=== PATIENT | male | born 1930 | race Caucasian/White ===

== ENCOUNTER 2016-08-01 10:40 | Emergency (ER) | payer OTHER, MEDICARE ==
[~2016-08-01] VITALS: Ht 177.8 cm; Wt 96.0 kg
[~2016-08-01 10:40] MED LIST: ASPI81TA28 PO; CRDCD300 PO; GLC/500 PO; LISI-725 PO
[2016-08-01 10:55] VITALS: Ht 177.8 cm; Wt 96.0 kg
[2016-08-01] MEDS ORDERED: PRED10TA PO (11:26)
[2016-08-01] MEDS ORDERED: DILT300C35 PO (11:26)
[2016-08-01] MEDS ORDERED: SODIUM CHLORIDE 0.9% 1000ML 1,000 ML IV STA (11:46)
[2016-08-01] MEDS ORDERED: MoRPHine SULFATE 4 MG/ML 1 ML CARP\\VIAL IV STA (11:46)
[2016-08-01] MEDS ORDERED: ALBUT/IPRATROP 3MG/0.5MG NEB 3 ML VIAL INH STA (11:46)
[2016-08-01] MEDS ORDERED: ONDANSETRON INJ 2 MG/ML 2 ML VIAL IV STA (11:46)
[2016-08-01 12:09] VITALS: O2SAT 97
[2016-08-01 12:14] LABS: BASO % 0.1 %; BASO ABS # 0.02 K/uL (0-0.2); COMPLETE YES; HEMATOCRIT 43.9 % (42-52); LYMPH % 15.3 %; LYMPH ABS # 3.01 K/uL (1.2-3.4); MEAN CELL VOLUME 85.6 fL (80-100); MEAN CORPUSCULAR HEMOGLOBIN 28.5 pg (25-34); MEAN CORPUSCULAR HGB CONC 33.3 g/dl (32-36); MEAN PLATELET VOLUME 9.9 fL (7.4-10.4); MONO % 4.2 %; NEUT % 79.4 %; PLATELET COUNT 394 K/uL (130-400); RED BLOOD COUNT 5.13 M/uL (4.7-6.1); WHITE BLOOD COUNT 19.68 K/uL (4.8-10.8)
[2016-08-01] MEDS ORDERED: OPTIRAY 320 IV PRN (12:15)
--- NOTE | 2016-08-01 12:29 | DIAGNOSTIC IMAGING REPORT ---
SINGLE VIEW CHEST CLINICAL HISTORY: Generalized abdominal pain. FINDINGS: An AP, portable, upright chest radiograph is compared to study dated 08/14/2012. The examination is degraded by portable technique and patient rotation. The patient is status post midline sternotomy. The heart is enlarged and there is atherosclerotic calcification of the thoracic aorta. The pulmonary vasculature is noncongested. Chronic interstitial thickening is unchanged, as is significant elevation of the left hemidiaphragm with left basilar atelectasis. No airspace consolidation, large pleural effusion, or pneumothorax is seen. The skeletal structures are osteopenic. Degenerative change is noted throughout the thoracic spine. IMPRESSION: 1. Cardiomegaly without radiographic evidence of congestive failure. 2. Chronic changes as above. There is no acute cardiopulmonary abnormality. Electronically signed by: Juvencio Thomas M.D. 08/01/2016 12:28 PM Dictated Date/Time: 08/01/2016 12:26 PM
[2016-08-01 12:37] LABS: ALT/SGPT 20 U/L (12-78); AST/SGOT 10 U/L (15-37); BLOOD UREA NITROGEN 21 mg/dl (7-18); BUN/CREATININE RATIO 18.8 (10-20); CALCIUM 9.7 mg/dl (8.5-10.1); CARBON DIOXIDE 29 mmol/L (21-32); CHLORIDE 104 mmol/L (98-107); GLUCOSE 124 mg/dl (70-99); SODIUM 140 mmol/L (136-145)
[2016-08-01 12:40] LABS: ALKALINE PHOSPHATASE 60 U/L (45-117)
[2016-08-01] MEDS ORDERED: MoRPHine SULFATE 10 MG/ML CARP/VIAL IV STA (12:51)
[2016-08-01 13:10] LABS: URINE APPEARANCE CLOUDY (CLEAR); URINE BILIRUBIN NEG (NEG); URINE COLOR YELLOW; URINE EPITHELIAL CELL AUTO >30 /lpf (0-5); URINE NITRITE NEG (NEG); URINE PH 7.5 (4.5-7.5); URINE SPECIFIC GRAVITY 1.023 (1.000-1.030); UROBILINOGEN NEG (NEG)
[2016-08-01 13:36] LABS: MANUAL MICROSCOPIC REQUIRED? NO; REVIEW REQ? YES; SULFASALICYLIC ACID NEG (NEG)
[2016-08-01 13:40] LABS: URINE MUCUS PRESENT (NONE PRSENT)
--- NOTE | 2016-08-01 15:05 | DIAGNOSTIC IMAGING REPORT ---
CT ABD/PELVIS IV AND ORAL CONT CLINICAL HISTORY: Generalized abdominal pain COMPARISON STUDY: 09/16/2012 TECHNIQUE: Following the IV administration of 118 mL of Optiray-320, CT scan of the abdomen and pelvis was performed from the lung bases to the proximal femurs. Images are reviewed in the axial, sagittal, and coronal planes. IV contrast was administered without complication. CT DOSE: 1023.07 mGy.cm FINDINGS: Lower chest: There are bibasal atelectatic changes. There is mild elevation of the left hemidiaphragm. Liver: The contrast-enhanced liver is normal in size, contour, and attenuation. There is no intrahepatic biliary ductal dilatation. The hepatic veins and portal veins are patent. Gallbladder: Unremarkable. Spleen: Normal in size and attenuation. Pancreas: Unremarkable. Adrenal glands: There is a 4 cm right adrenal gland mass. This contains fat on the prior study and is consistent with an adenoma. Kidneys: There are bilateral nonobstructing renal calculi. There are subcentimeter renal hypodensities measuring up to 8 mm in size. These likely represent cysts. Bowel: There are no transition zones indicate bowel obstruction. The appendix appears normal. There is colonic diverticulosis. There is no acute peridiverticular inflammatory change. Peritoneum: There is no intraperitoneal free air or abdominal ascites. Vasculature: The abdominal aorta is normal in course and caliber. Adenopathy: None. Pelvic viscera: The prostate is enlarged. Evaluation the prostate is limited due to artifact from bilateral hip arthroplasties. Skeletal structures: There is a left rectus sheath hematoma measuring 10 x 4 x 10 cm. There is a moderate L1 compression fracture. This was present on the prior 2012 study IMPRESSION: 1. 10 x 4 x 10 cm left rectus sheath hematoma 2. No evidence of bowel obstruction. No evidence of free air 3. Normal appendix 4. Colonic diverticulosis. No evidence of acute peridiverticular inflammatory change 5. Bilateral nephrolithiasis 6. 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 08/01/2016 3:04 PM Dictated Date/Time: 08/01/2016 2:57 PM
[2016-08-01 16:18] LABS: INR 1.1 (0.9-1.1); PROTHROMBIN TIME (PATIENT) 11.4 SECONDS (9.0-12.0)
[2016-08-01 16:33] VITALS: BP 122/61; PULSE 63; TEMP 36.4; O2SAT 93
--- NOTE | 2016-08-01 18:32 | EMERGENCY ROOM VISIT NOTE ---
ED Visit Note First contact with patient: 11:14 I have personally evaluated this patient examined her and reviewed the pertinent labs and data. I have discussed the case with Mike Yu, the physician assistant refinery operator and agree with the plan. Please refer to the PA note. This patient comes in after having abdominal pain. He's been on 2 courses steroids and has been a lot of coughing is on antibiotics. Chest x-ray was clear .he looks well upon my exam and his abdominal pain has abated. He does have a bruise in the right side of the abdomen which looks like it's fading indicating its been there for more than a couple days likely. He is minimally tender to palpation. His hemoglobin stable at 14. CAT scan did show rectus sheath hematoma that is is 10 x 10 x 4 cm. We talked to the patient and his daughter at length and told him I cannot tell if this could expand. He is not on any blood thinners which is good. I recommended we admit her for observation but he declines. I don't think is unreasonable to send him home with close follow-up. I recommended he call his doctor tomorrow and get rechecked before the weekend either tomorrow or Saturday. Return sooner if: increasing pain, lightheadedness or dizziness, worsening of symptoms, any new problems or concerns. The patient and his daughter are happy with the plan and he was discharged to home.
--- NOTE | 2016-08-02 17:56 | EMERGENCY ROOM VISIT NOTE ---
ED Visit Note First contact with patient: 11:14 Chief Complaint: Abdominal pain. History of Present Illness: Mr. Larkin is a 86 year-old white male who ambulates into the ED accompanied by his daughter complaining of left mid to lower quadrant abdominal pain quadrant abdominal pain. Historically patient reports Patient reports a 9 days ago he was diagnosed with pneumonia at a local urgent care center because of a cough. He was started on Levaquin and prednisone for his symptoms. He reports he was re-seen yesterday for abdominal pain and his cough which continues and was represcribed prednisone. Today he contacted his PCP who encouraged him to go to the emergency department for his abdominal pain. Patient reports approximately 6 days ago he started developing a mild left lower quadrant abdominal pain. Since that time the pain has been constant has gradually increased in intensity until last night it became severe. Initially at its onset he describes his pain as an achy sensation. Last evening approximately 14 hours ago the pain became sharp in nature. Since that time his pain has been continually sharp. Currently he rates his discomfort 8/10. The pain does migrate from the mid quadrant to the lower aspect of the left lower quadrant. His pain worsens when moving from the standing to the lying position and he reported it worsened with bouncing on the car on the way to the hospital. He has not taken any medications for his pain prior to arrival at the hospital. Associated with his pain he reports he has not moved his bowels for the last 2 days and the last time he did he needed to push to get it out and it was hard in nature. Additionally he does report approximately 2 days ago he was eating a hamburger from a local fast food restaurant and developed some GERD-like symptoms in the epigastric area that has subsequently resolved. Patient denies fevers, chills, sweats, skin eruptions, skin color changes, upper respiratory tract symptoms, shortness of breath, chest pain, nausea, vomiting, diarrhea, rectal bleeding, black/tarry stools, urinary symptoms, hematuria, back/flank pain. Review of Systems: As noted above in history of present illness. All body systems were reviewed and found to be negative as noted above. Past Medical History: Diabetes, hypertension, pneumonia, kidney stones, status post knee and hip arthroplasty and right inguinal hernia repair. Current Medications: Zestril, metformin, aspirin, diltiazem, prednisone. Allergies to Medications: Patient denies. Social History: Patient is currently employed; he feels safe in his home environment; he denies tobacco use; he admits to social alcohol use. Physical Examination: Vital Signs: Date Time Temp Pulse Resp B/P Pulse Ox O2 Delivery O2 Flow Rate FiO2 08/01/16 16:33 36.4 63 18 122/61 93 08/01/16 16:32 63 18 122/61 93 Room Air 08/01/16 15:33 67 18 125/65 93 Room Air 08/01/16 14:08 73 18 121/55 93 Room Air 08/01/16 13:01 71 18 132/60 95 Room Air 08/01/16 12:11 73 08/01/16 12:09 73 20 116/62 97 Room Air 08/01/16 10:55 36.4 101 18 110/66 94 Room Air GENERAL: 86-year-old male in moderate distress due to pain, nontoxic-appearing, afebrile and hemodynamically stable. NEUROLOGICAL: Awake, alert and oriented to person, place and time. Answering questions appropriately and following commands. Normal gait. Good hand eye coordination. SKIN: Warm, dry and pink. No soft tissue eruptions or trauma noted. HEENT: Atraumatic and normocephalic. PERRLA. Sclera white and conjunctiva pink. Oral cavity moist and pink. Pharynx is nonerythematous or edematous. Speech normal. No lymphadenopathy. Trachea midline. No jugular venous distention. BACK: No tenderness over the bony spine. No CVA tenderness. THORAX: Lungs sounds diffuse wheezing and rhonchi with decreased air movements in the bases. Equal bilaterally with symmetrical chest wall. No rales.. No crepitus, tenderness, subcutaneous air or deformities noted. No increased respiratory effort. HEART: Regular rate and rhythm. No gallops, rubs or murmurs are appreciated. ABDOMEN: Flat and soft with mild tenderness in the epigastrium and moderate tenderness with guarding in the mid and lower left quadrant. Decreased bowel sounds in all quadrants. No rigidity or organomegaly. Over the anterior surface of the abdomen in the right upper quadrant patient has a large resolving contusion without tenderness. EXTREMITIES: Moves all extremities well on command and with purpose. All distal neurovascular statuses are intact and equal bilaterally. Mild dependent edema slightly more pronounced on the right than the left; patient reports she' s had a previous fracture in that leg. ED Course: Patient is assessed as noted above. Laboratory Testing: Test 08/01/16 11:50 08/01/16 12:53 Range/Units White Blood Count 19.68 4.8-10.8 K/uL Red Blood Count 5.13 4.7-6.1 M/uL Hemoglobin 14.6 14.0-18.0 g/dL Hematocrit 43.9 42-52 % Mean Corpuscular Volume 85.6 80-100 fL Mean Corpuscular Hemoglobin 28.5 25-34 pg Mean Corpuscular Hemoglobin Concent 33.3 32-36 g/dl Platelet Count 394 130-400 K/uL Mean Platelet Volume 9.9 7.4-10.4 fL Neutrophils (%) (Auto) 79.4 % Lymphocytes (%) (Auto) 15.3 % Monocytes (%) (Auto) 4.2 % Eosinophils (%) (Auto) 0.0 % Basophils (%) (Auto) 0.1 % Neutrophils # (Auto) 15.63 1.4-6.5 K/uL Lymphocytes # (Auto) 3.01 1.2-3.4 K/uL Monocytes # (Auto) 0.82 0.11-0.59 K/uL Eosinophils # (Auto) 0.00 0-0.5 K/uL Basophils # (Auto) 0.02 0-0.2 K/uL RDW Standard Deviation 45.4 36.4-46.3 fL RDW Coefficient of Variation 14.6 11.5-14.5 % Immature Granulocyte % (Auto) 1.0 % Immature Granulocyte # (Auto) 0.20 0.00-0.02 K/uL Prothrombin Time 11.4 9.0-12.0 SECONDS Prothromb Time International Ratio 1.1 0.9-1.1 Activated Partial Thromboplast Time 26.3 21.0-31.0 SECONDS Partial Thromboplastin Ratio 1.0 Sodium Level 140 136-145 mmol/L Potassium Level 5.0 3.5-5.1 mmol/L Chloride Level 104 98-107 mmol/L Carbon Dioxide Level 29 21-32 mmol/L Anion Gap 7.0 3-11 mmol/L Blood Urea Nitrogen 21 7-18 mg/dl Creatinine 1.10 0.60-1.40 mg/dl Est Creatinine Clear Calc Drug Dose 58.1 ml/min Estimated GFR () 71.1 Estimated GFR (Non- 61.3 BUN/Creatinine Ratio 18.8 10-20 Random Glucose 124 70-99 mg/dl Calcium Level 9.7 8.5-10.1 mg/dl Total Bilirubin 0.4 0.2-1 mg/dl Direct Bilirubin < 0.1 0-0.2 mg/dl Aspartate Amino Transf (AST/SGOT) 10 15-37 U/L Alanine Aminotransferase (ALT/SGPT) 20 12-78 U/L Alkaline Phosphatase 60 45-117 U/L Total Protein 7.0 6.4-8.2 gm/dl Albumin 3.4 3.4-5.0 gm/dl Lipase 137 73-393 U/L Urine Color YELLOW Urine Appearance CLOUDY CLEAR Urine pH 7.5 4.5-7.5 Urine Specific Sabael 1.023 1.000-1.030 Urine Protein NEG NEG Urine Glucose (UA) NEG NEG Urine Ketones TRACE NEG Urine Occult Blood 1+ NEG Urine Nitrite NEG NEG Urine Bilirubin NEG NEG Urine Urobilinogen NEG NEG Urine Leukocyte Esterase SMALL NEG Urine WBC (Auto) 5-10 0-5 /hpf Urine RBC (Auto) 10-30 0-4 /hpf Urine Hyaline Casts (Auto) 1-5 0-5 /lpf Urine Epithelial Cells (Auto) >30 0-5 /lpf Urine Bacteria (Auto) NEG NEG Urine Renal Epithelial Cells 0-5 /lpf Urine Crystals See comments NONE PRSENT Urine Mucus PRESENT NONE PRSENT Chest X-Ray: Was read by myself and reviewed with Dr. Arreola; shows cardiomegaly, atherosclerotic is calcification within the thoracic aorta, no acute infiltrates, effusions or pneumothorax, no pulmonary congestion, elevation of the left hemidiaphragm with bilateral atelectasis and degenerative changes noted throughout the spine. Contrast Abdominal/Pelvic CT: Was reviewed by myself and read by the radiologist and shows a 10 x 4 x 10 left rectus sheath hematoma, no bowel structure nor free air, normal-appearing appendix, colonic diverticulosis with no evidence of diverticulitis, bilateral nephrolithiasis, 4 cm right adrenal gland mass. Patient was hydrated with normal saline and he received a total of 10 mg of morphine IV and 4 mg of Zofran IV. Additionally he received an albuterol/ Atrovent nebulizer breathing treatment for his wheezing. Patient was reevaluated after his breathing treatment and had resolution of wheezing but continued to have diffuse rhonchi and he had improved air movement and did not appear in any acute respiratory distress. Patient was reassessed multiple times during his stay in the emergency department. I had a lengthy conversation with the patient and his daughter about possible observation stay because of this pain and the unknown etiology of his hematoma; he refused. Patient's case was reviewed with Dr. Arreola; in apparently assessed the patient we agreed on diagnostic approach, treatment, disposition and plan. Clinical Impression: Rectus sheath hematoma. Wheezing. Decision-Making: Initially my differential diagnosis I considered bowel obstruction, constipation, perforated viscus, diverticulitis, kidney stone, appendicitis, abdominal wall hernia and other causes. Disposition: Patient discharged home in stable condition accompanied by his daughter; prior to departure he was reassessed and subjectively reported he was feeling much better and rated his discomfort 3/10. Additionally he reported his breathing was much easier and did not feel short of breath. Plan: Patient was encouraged to use 650 mg of acetaminophen every 6 hours as needed for pain and to avoid NSAIDs. Patient was encouraged to use a spacer for his inhaler. Patient was encouraged to follow-up with primary care provider for recheck in 24 -48 hours. Patient was encouraged to watch for any abnormal or unusual bleeding. Patient was encouraged return the ED for worsening pain, signs of abnormal bleeding, fevers or any new/concerning symptoms.
== END 2016-08-01 16:34 | disposition home or self-care (01) ==
LOC: C.EDB 10:41
DX: S36.62XA Contusion of rectum, initial encounter (principal); X58.XXXA Exposure to other specified factors, initial encounter; R06.2 Wheezing; I10 Essential (primary) hypertension; E11.9 Type 2 diabetes mellitus without complications; K21.9 Gastro-esophageal reflux disease without esophagitis; Z87.442 Personal history of urinary calculi; Z79.82 Long term (current) use of aspirin; Z79.84 Long term (current) use of oral hypoglycemic drugs; Z79.899 Other long term (current) drug therapy

== ENCOUNTER 2017-05-26 10:23 | Emergency (ER) | payer OTHER, MEDICARE ==
[~2017-05-26] VITALS: Ht 175.3 cm; Wt 101.6 kg
[~2017-05-26 10:23] MED LIST changes: -CRDCD300 PO; +DILT300C35 PO; +PRED10TA PO
[2017-05-26 10:30] VITALS: TEMP 36.3; Ht 175.3 cm; Wt 101.6 kg
--- NOTE | 2017-05-26 11:31 | DIAGNOSTIC IMAGING REPORT ---
L ELBOW MIN 3 VIEWS ROUTINE CLINICAL HISTORY: L elbow olecranon bursitis COMPARISON: None DISCUSSION: No acute fractures are visualized. The fat pads are not displaced. There is an olecranon spur. There is pronounced posterior soft tissue swelling, consistent with the clinical history of an olecranon bursitis. IMPRESSION: 1. No acute fractures 2. Olecranon spur 3. Pronounced posterior soft tissue swelling consistent with the clinical history of an olecranon bursitis Electronically signed by: Mane Le M.D. 05/26/2017 11:30 AM Dictated Date/Time: 05/26/2017 11:28 AM
--- NOTE | 2017-05-26 11:43 | EMERGENCY ROOM VISIT NOTE ---
ED Visit Note First contact with patient: 10:52 Patient was seen by our PA/WRAPPER SELECTOR. I was involved in the patient's care and did evaluate the patient myself. I was involved in the care throughout the ER stay. The patient presents with an injury to the left elbow. Films do not show fracture. He does have some fluid in the olecranon bursa by exam, there is no heat or redness that indicates infection. No pain with palpation. He is being discharged with outpatient follow-up. He was reassured.
[2017-05-26 11:51] VITALS: BP 152/75; PULSE 70; O2SAT 96
--- NOTE | 2017-05-26 14:25 | EMERGENCY ROOM VISIT NOTE ---
History First contact with patient: 10:52 Chief Complaint: ELBOW PAIN/INJURY Stated Complaint: LARGE KNOB ON L ELBOW History of Present Illness The patient is a 87 year old male who presents to the Emergency Room with complaints of persistent left elbow swelling after tripping over his feet and falling onto the elbow 2.5 weeks ago. The patient denies any other significant injury, including head injury, loss of consciousness, neck pain, chest pain or other extremity injuries. The patient reports that the elbow started to swell at the time of the accident. He has not followed up with his family doctor for further evaluation. The patient denies any open wounds to the elbow, and also denies any paresthesias or numbness of the left forearm, hand or fingers. Tetanus immunization is up-to-date. The patient denies any pain. Review of Systems 10 system review was performed and was negative except for pertinent positives and negatives as indicated in history of present illness Past Medical/Surgical History Medical Problems: (1) CARDIAC MURMURS NEC (2) DIAB WILBERT WO COMPL, TYPE II OR UNSPEC TYPE, NOT UNCNTRLD (3) HYPERTENSION NOS Family History Unremarkable Social History Smoking Status: Never Smoker Alcohol Use: occasionally Drug Use: none Marital Status: Occupation Status: employed Current/Historical Medications Scheduled Aspirin (Aspirin Ec), 81 MG PO DAILY Diltiazem Hcl Extended Release (Diltiazem Hcl), 300 MG PO QAM Lisinopril (Zestril), 20 MG PO QPM Metformin Hcl (Glucophage), 500 MG PO BID Physical Exam Vital Signs Date Time Temp Pulse Resp B/P (MAP) Pulse Ox O2 Delivery O2 Flow Rate FiO2 05/26/17 11:51 70 18 152/75 96 Room Air 05/26/17 10:30 36.3 62 18 159/71 93 Room Air Physical Exam CONSTITUTIONAL: Healthy and well nourished. Alert and oriented X 3 with positive affect. GCS 15. HEENT: Normocephalic, atraumatic. Pupils equal, round and reactive. NECK: Full active range of motion without discomfort. MUSCULOSKELETAL: Examination of the left elbow shows a golf size fluid accumulation posteriorly. There is no overriding erythema or induration about the site. The patient has full pronation, supination, flexion and extension without discomfort. Distal pulses are intact. INTEGUMENTARY: No rash or other significant dermatologic conditions noted. NEUROLOGIC: Left hand and fingers are sensory intact. Medical Decision & Procedures ER Provider Diagnostic Interpretation: My interpretation of left elbow x-rays does not show any obvious fractures, dislocations, avulsions or joint effusion. Radiologist report is as follows: L ELBOW MIN 3 VIEWS ROUTINE CLINICAL HISTORY: L elbow olecranon bursitis COMPARISON: None DISCUSSION: No acute fractures are visualized. The fat pads are not displaced. There is an olecranon spur. There is pronounced posterior soft tissue swelling, consistent with the clinical history of an olecranon bursitis. IMPRESSION: 1. No acute fractures 2. Olecranon spur 3. Pronounced posterior soft tissue swelling consistent with the clinical history of an olecranon bursitis ED Course Patient history and physical exam were performed. Nurse's notes were reviewed. Vital signs were reviewed and were normal. I was advised by the nurse that the patient needed to be somewhere at 1 PM, 2 hours after checking in. I did suggest performing an x-ray to rule out underlying fracture. The patient wanted to know if I could drain the elbow. I told the patient that I would not do so until after having x-rays performed, and that it would take time in order to perform the procedure. The patient then deferred the procedure and agreed with having an x-ray performed. X-rays of the left elbow were normal, showing no evidence for fractures, avulsions, dislocation or joint effusion. The patient was encouraged to keep an Florian wrap to help flatten the bursa and help with reabsorption. He was encouraged to intermittently apply ice as needed. He was encouraged to follow-up with his PCP or orthopedics if the bursal effusion persists, and watch for any signs of developing infection. The patient was happy with plan of care, and voiced understanding of all discharge instructions. The patient was also seen and examined by Dr. Mcbride, ED attending physician who agrees with workup and plan of care. Medical Decision Medication Reconcilliation Current Medication List: was personally reviewed by me Blood Pressure Screening Patient's blood pressure: Normal blood pressure Impression Primary Impression: Olecranon bursitis, left elbow Departure Information Dispostion Home / Self-Care Forms HOME CARE DOCUMENTATION FORM, IMPORTANT VISIT INFORMATION Patient Instructions My [employer] Additional Instructions Keep Florian wrap on elbow to flatten the bursa and to help the body resorb the extra fluid. Follow-up with your family doctor or orthopedics if swelling persists, or if you start to notice any redness of the area.
== END 2017-05-26 11:59 | disposition home or self-care (01) ==
LOC: C.EDB 10:24
DX: M70.22 Olecranon bursitis, left elbow (principal); E11.9 Type 2 diabetes mellitus without complications; I10 Essential (primary) hypertension; Z79.82 Long term (current) use of aspirin; Z79.899 Other long term (current) drug therapy

== ENCOUNTER 2021-06-12 08:36 | Inpatient (IN) ==
--- NOTE | 2021-06-12 08:54 | Emergency Department Note ---
Impression & Plan Pulmonary edema, SOB (shortness of breath) ED Provider Note NAME: JANNA CHI AGE: 89 SEX: M : 1930 ARRIVES VIA: Ambulance INFORMANT: Patient, ED PROVIDER(S): Reid Barroso DO CHIEF COMPLAINT: Shortness of breath HPI: The patient is an 89-year-old male who presented to the emergency department by ambulance at the request of his primary care physician for an evaluation. The patient has a history of CHF but also has a history of recent COVID infection. The patient presented to the emergency department by [facility]. The patient started having shortness of breath this morning. He states he was in his normal state of health last evening. He states when he awoke this morning he had significant shortness of breath. He called his primary care physician and was given a telehealth visit. He was instructed to use a nebulizer treatment. He was feeling better afterwards. He states at this time he has no shortness of breath. He does wear oxygen at home normally. He has had a slight cough but no fever. He does have lower extremity swelling but states this is not new for him and his lower extremity swelling is baseline. He has had no chest pain. He denies having any abdominal pain. He said no hemopt ysis or productive cough. He states his symptoms were very severe at the time and are now resolved. ROS: See above HPI for pertinent positives & negatives. A total of 10 systems reviewed and were otherwise negative. PAST MEDICAL HISTORY: See Below PAST SURGICAL HISTORY: See Below FAMILY HISTORY: See Below SOCIAL HISTORY: See Below HOME MEDICATIONS: See Below ALLERGIES: See Below VITALS: See Below PHYSICAL EXAMINATION: GENERAL: The patient is awake and alert. He is resting comfortably. EYES: The conjunctivae are clear. The pupils are round and reactive. EARS, NOSE, MOUTH AND THROAT: The nose is without any evidence of any deformity. NECK: The neck is nontender and supple. RESPIRATORY: Diminished breath sounds are noted throughout. Rales were noted throughout. There is no conversational dyspnea or tachypnea. CARDIOVASCULAR: Irregular heart sounds were noted auscultation. There is no definite murmur. GASTROINTESTINAL: The abdomen is soft. Abdomen is nontender. MUSCULOSKELETAL/EXTREMITIES: There is no evidence of gross deformity full range of motion is noted in the hips and shoulders. SKIN: The skin was warm and dry. Pedal edema was noted bilaterally. NEUROLOGIC: Patient is awake alert and oriented x3. MEDICAL DECISION MAKING: The patient is an 89-year-old male who presented to the emergency department for an evaluation of difficulty breathing. The patient started having difficulty breathing earlier in the night which improved prior to arrival. The patient still has significant shortness of breath at this time especially with any exertion. I discussed the patient's laboratory and radiographic studies with him and his daughter. He was treated with a small dose of Lasix in the emergency department. He was somewhat improved on reevaluation. I discussed his condition with the on-call [facility] hospitalist group. They have agreed to evaluate patient in the emergency department for further management and disposition. Triage Nursing notes reviewed. Prior medical records reviewed Vital Signs: reviewed and remarkable for hypoxia with exertion. Differential diagnosis: Reactive airway disease, pneumonia, pneumothorax, COPD, CHF, infections, cardiac ischemia, pulmonary embolism, musculoskeletal, gastrointestinal, as well as other pathologies. ER treatment provided: See below Diagnostics interpreted by me: ECG: EKG was obtained in the emergency department. My interpretation is atrial fibrillation at 76 bpm. PVCs were noted. There is no acute ST segment ab normalities noted. This was compared to a tracing from May 27, 2021. No changes were noted. Cardiac Monitoring: An order was placed for continuous cardiac monitoring. The monitor shows a rate of 99 bpm with atrial fibrillation. Laboratory studies: As stated above and show below. Imaging studies: See below Consultation(s): I discussed this case with Jacob who is on-call for the [facility] group. Past Med/Surg History Medical History (Updated 06/12/21 @ 15:04 by Reid Barroso DO) Atrial fibrillation BPH w urinary obs/LUTS CAD (coronary artery disease) CHF (congestive heart failure) Complicated bereavement Constipation Diabetes mellitus Gout Hyperlipidemia LDL goal <70 Hypertension Insomnia Presence of Watchman left atrial appendage closure device Social History (Updated 06/12/21 @ 12:34 by FIDEL Glaser) Smoking Status: Former smoker Tobacco Type: Cigarettes Second Hand Exposure: Yes; Hx Alcohol Use: No Hx Substance Use: No Preferred Language: Vietnamese Communication Ability: Effective Make Up Arranger Required: No Beliefs That Will Affect Care: None Current Living Situation: Alone Feels Safe at Home: Yes Assistive Devices: Oxygen - Continuous and Walker Allergies Allergies Allergy/AdvReac Type Severity Reaction Status Date / Time No Known Allergies Allergy Verified 06/12/21 10:23 Home Meds Home Medications Medication Instructions Recorded Confirmed allopurinol 300 mg tablet 300 mg PO DAILY 05/15/21 06/12/21 aspirin 81 mg tablet,delayed 81 mg PO DAILY 05/15/21 06/12/21 release atorvastatin 20 mg tablet 20 mg PO DAILY 05/15/21 06/12/21 docusate sodium 100 mg capsule 100 mg PO BID PRN 05/15/21 06/12/21 (Colace) finasteride 5 mg tablet 5 mg PO DAILY 05/15/21 06/12/21 furosemide 40 mg tablet 40 mg PO BID 05/15/21 06/12/21 metformin 500 mg tablet 500 mg PO DAILY 05/15/21 06/12/21 metoprolol tartrate 25 mg tablet 12.5 mg PO DAILY 05/15/21 06/12/21 nitroglycerin 0.4 mg sublingual 0.4 mg SUBLINGUAL UD PRN 05/15/21 06/12/21 tablet (Nitrostat) sennosides 8.6 mg tablet (senna) 17.2 mg PO HS 05/15/21 06/12/21 tamsulosin 0.4 mg capsule 0.4 mg PO DAILY 05/15/21 06/12/21 thiamine HCl (vitamin B1) 100 mg 100 mg PO DAILY 05/15/21 06/12/21 tablet albuterol sulfate 2.5 mg INHALATION Q4 PRN 06/12/21 06/12/21 Previous Rx's Medication Instructions Recorded apixaban 5 mg tablet (Eliquis) 5 mg PO BID #60 tab 05/19/21 mirtazapine 15 mg tablet 15 mg PO HS #30 tab 05/19/21 Results & Data (ED) Vital Signs Vital Signs - 24 hr 06/12/21 08:46 06/12/21 09:00 06/12/21 09:01 Temperature Temperature Source Pulse Rate 75 80 85 Pulse Rate [Apical] Pulse Rate from SpO2 Sensor 81 80 76 Respiratory Rate 26 H 25 H 23 Respiratory Effort / Characteristics Respiratory Depth Respiratory Pattern Blood Pressure 132/65 Blood Pressure [Right Arm] Blood Pressure Mean 87 Blood Pressure Mean [Right Arm] Pulse Oximetry 98 94 95 Oxygen Delivery Method Nasal Cannula Nasal Cannula Nasal Cannula Oxygen Flow Rate 2 2 2 Sepsis Recent Fever Within 48 Hours Sepsis New/Unexplained Change in Mental Status Sepsis Action Taken by Nursing 06/12/21 09:03 06/12/21 09:05 06/12/21 09:30 Temperature 36.8 C 36.8 C Temperature Source Oral Oral Pulse Rate 63 63 68 Pulse Rate [Apical] 63 Pulse Rate from SpO2 Sensor Respiratory Rate 22 22 24 Respiratory Effort / Characteristics Spontaneous Labored Spontaneous Labored Respiratory Depth Normal Normal Respiratory Pattern Regular Regular Blood Pressure 110/61 104/64 Blood Pressure [Right Arm] 110/61 Blood Pressure Mean 77 77 Blood Pressure Mean [Right Arm] 77 Pulse Oximetry 98 98 Oxygen Delivery Method Nasal Cannula Nasal Cannula Oxygen Flow Rate 2 2 Sepsis Recent Fever Within 48 Hours No Sepsis New/Unexplained Change in Mental Status No Sepsis Action Taken by Nursing No Action Required 06/12/21 10:00 06/12/21 10:01 06/12/21 10:30 Temperature Temperature Source Pulse Rate 79 64 86 Pulse Rate [Apical] Pulse Rate from SpO2 Sensor 82 69 81 Respiratory Rate 24 24 16 Respiratory Effort / Characteristics Respiratory Depth Respiratory Pattern Blood Pressure 112/71 Blood Pressure [Right Arm] Blood Pressure Mean 84 Blood Pressure Mean [Right Arm] Pulse Oximetry 96 98 Oxygen Delivery Method Nasal Cannula Nasal Cannula Oxygen Flow Rate 2 2 Sepsis Recent Fever Within 48 Hours Sepsis New/Unexplained Change in Mental Status Sepsis Action Taken by Nursing 06/12/21 10:31 06/12/21 11:00 06/12/21 11:01 Temperature Temperature Source Pulse Rate 70 76 74 Pulse Rate [Apical] Pulse Rate from SpO2 Sensor 73 78 76 Respiratory Rate 26 H 24 24 Respiratory Effort / Characteristics Respiratory Depth Respiratory Pattern Blood Pressure 120/67 106/55 L Blood Pressure [Right Arm] Blood Pressure Mean 84 72 Blood Pressure Mean [Right Arm] Pulse Oximetry 95 96 96 Oxygen Delivery Method Nasal Cannula Nasal Cannula Nasal Cannula Oxygen Flow Rate 2 2 2 Sepsis Recent Fever Within 48 Hours Sepsis New/Unexplained Change in Mental Status Sepsis Action Taken by Nursing 06/12/21 11:30 06/12/21 12:00 Temperature Temperature Source Pulse Rate 76 76 Pulse Rate [Apical] Pulse Rate from SpO2 Sensor 75 77 Respiratory Rate 24 22 Respiratory Effort / Characteristics Respiratory Depth Respiratory Pattern Blood Pressure 126/71 143/76 H Blood Pressure [Right Arm] Blood Pressure Mean 89 98 Blood Pressure Mean [Right Arm] Pulse Oximetry 97 97 Oxygen Delivery Method Oxygen Flow Rate Sepsis Recent Fever Within 48 Hours Sepsis New/Unexplained Change in Mental Status Sepsis Action Taken by Care Home Medications Current Medication List: was personally reviewed by me Laboratory Data Attestation: I reviewed the patient's lab results. Result diagrams: 06/12/21 08:55 06/12/21 08:55 Lab Results 06/12/21 06/12/21 06/12/21 Range/Units 08:55 08:55 08:55 WBC 46.46 H* (4.8-10.8) K/uL RBC 3.18 L (4.7-6.1) M/uL Hgb 9.7 L (14.0-18.0) g/dL Hct 33.6 L (42-52) % MCV 105.7 H (80-100) fL MCH 30.5 (25-34) pg MCHC 28.9 L (32-36) g/dL RDW Std Deviation 66.3 H (36.4-46.3) fL RDW Coeff of Eladio 17.2 H (11.5-14.5) % Plt Count 231 (130-400) K/uL MPV 9.3 (7.4-10.4) fL Neutrophils % (Manual) 13.2 % Lymphocytes % (Manual) 84.1 % Monocytes % (Manual) 1.8 % Eosinophils % (Manual) 0.9 % Neutrophils # (Manual) 6.13 (1.4-6.5) K/uL Total Absolute Neuts 6.13 (1.4-6.5) K/uL Lymphocytes # (Manual) 39.07 H (1.2-3.4) K/uL Total Abs Lymphocytes 39.07 H (1.2-3.4) K/uL Monocytes # (Manual) 0.84 H (0.11-0.59) K/uL Eosinophils # (Manual) 0.42 (0-0.5) K/uL ESR (0-20) mm/hr PT 11.3 (9.0-12.0) Seconds INR 1.1 (0.9-1.1) APTT 26.2 (21.0-31.0) Seconds PTT Ratio 1.0 VBG pH (7.36-7.41) VBG pCO2 (38-50) mmHg VBG pO2 mmHg VBG HCO3 mmol/L VBG O2 Saturation % VBG Base Excess mEq/L Barometric Pressure mm/Hg Sodium 142 (136-145) mmol/L Potassium 4.0 (3.5-5.1) mmol/L Chloride 99 (98-107) mmol/L Carbon Dioxide 42 H* (21-32) mmol/L Anion Gap 1.0 L (3-11) BUN 22 H (7-18) mg/dl Creatinine 1.08 (0.6-1.4) mg/dl Est Cr Clr Drug Dosing 53.6 ml/min Est GFR ( Amer) 70.2 ml/min Est GFR (Non-Af Amer) 60.5 ml/min BUN/Creatinine Ratio 20.3 H (10-20) Glucose 131 H (70-99) mg/dl Lactate (0.4-2.0) mmol/L Calcium 8.6 (8.5-10.1) mg/dl Total Bilirubin 0.3 (0.2-1) mg/dl AST 16 (15-37) U/L ALT 22 (12-78) Alkaline Phosphatase 108 (45-117) U/L Troponin I < 0.015 (0-0.045) ng/ml C-Reactive Protein 0.79 H (0-0.29) mg/dl NT-Pro-B Natriuret Pep 2100 H (0-1800) pg/ml Total Protein 7.0 (6.4-8.2) gm/dl Albumin 2.8 L (3.4-5.0) gm/dl Globulin 4.2 H (2.5-4.0) gm/dl Albumin/Globulin Ratio 0.7 L (0.9-2) Procalcitonin (0-0.5) ng/ml Urine Color Urine Appearance (Clear) Urine pH (4.5-7.5) Ur Specific [place] (1.000-1.030) Urine Protein (Negative) Urine Glucose (UA) (Negative) Urine Ketones (Negative) Urine Blood (Negative) Urine Nitrite (Negative) Urine Bilirubin (Negative) Urine Urobilinogen (Negative) Ur Leukocyte Esterase (Negative) Urine WBC (Auto) (0-5) /hpf Urine RBC (Auto) (0-4) /hpf U Hyaline Cast (Auto) (0-5) /lpf U Epithel Cells (Auto) (0-5) /lpf Urine Bacteria (Auto) (Negative) SARS-CoV-2, RNA, NAAT (NEGATIVE) 06/12/21 06/12/21 06/12/21 Range/Units 08:55 08:55 08:58 WBC (4.8-10.8) K/uL RBC (4.7-6.1) M/uL Hgb (14.0-18.0) g/dL Hct (42-52) % MCV (80-100) fL MCH (25-34) pg MCHC (32-36) g/dL RDW Std Deviation (36.4-46.3) fL RDW Coeff of Eladio (11.5-14.5) % Plt Count (130-400) K/uL MPV (7.4-10.4) fL Neutrophils % (Manual) % Lymphocytes % (Manual) % Monocytes % (Manual) % Eosinophils % (Manual) % Neutrophils # (Manual) (1.4-6.5) K/uL Total Absolute Neuts (1.4-6.5) K/uL Lymphocytes # (Manual) (1.2-3.4) K/uL Total Abs Lymphocytes (1.2-3.4) K/uL Monocytes # (Manual) (0.11-0.59) K/uL Eosinophils # (Manual) (0-0.5) K/uL ESR 58 H (0-20) mm/hr PT (9.0-12.0) Seconds INR (0.9-1.1) APTT (21.0-31.0) Seconds PTT Ratio VBG pH 7.33 L (7.36-7.41) VBG pCO2 83 H (38-50) mmHg VBG pO2 53 mmHg VBG HCO3 43 mmol/L VBG O2 Saturation 83.4 % VBG Base Excess 14.4 mEq/L Barometric Pressure 737.5 mm/Hg Sodium (136-145) mmol/L Potassium (3.5-5.1) mmol/L Chloride (98-107) mmol/L Carbon Dioxide (21-32) mmol/L Anion Gap (3-11) BUN (7-18) mg/dl Creatinine (0.6-1.4) mg/dl Est Cr Clr Drug Dosing ml/min Est GFR ( Amer) ml/min Est GFR (Non-Af Amer) ml/min BUN/Creatinine Ratio (10-20) Glucose (70-99) mg/dl Lactate (0.4-2.0) mmol/L Calcium (8.5-10.1) mg/dl Total Bilirubin (0.2-1) mg/dl AST (15-37) U/L ALT (12-78) Alkaline Phosphatase (45-117) U/L Troponin I (0-0.045) ng/ml C-Reactive Protein (0-0.29) mg/dl NT-Pro-B Natriuret Pep (0-1800) pg/ml Total Protein (6.4-8.2) gm/dl Albumin (3.4-5.0) gm/dl Globulin (2.5-4.0) gm/dl Albumin/Globulin Ratio (0.9-2) Procalcitonin 0.13 (0-0.5) ng/ml Urine Color Urine Appearance (Clear) Urine pH (4.5-7.5) Ur Specific [place] (1.000-1.030) Urine Protein (Negative) Urine Glucose (UA) (Negative) Urine Ketones (Negative) Urine Blood (Negative) Urine Nitrite (Negative) Urine Bilirubin (Negative) Urine Urobilinogen (Negative) Ur Leukocyte Esterase (Negative) Urine WBC (Auto) (0-5) /hpf Urine RBC (Auto) (0-4) /hpf U Hyaline Cast (Auto) (0-5) /lpf U Epithel Cells (Auto) (0-5) /lpf Urine Bacteria (Auto) (Negative) SARS-CoV-2, RNA, NAAT (NEGATIVE) 06/12/21 06/12/21 06/12/21 Range/Units 09:14 09:18 12:04 WBC (4.8-10.8) K/uL RBC (4.7-6.1) M/uL Hgb (14.0-18.0) g/dL Hct (42-52) % MCV (80-100) fL MCH (25-34) pg MCHC (32-36) g/dL RDW Std Deviation (36.4-46.3) fL RDW Coeff of Eladio (11.5-14.5) % Plt Count (130-400) K/uL MPV (7.4-10.4) fL Neutrophils % (Manual) % Lymphocytes % (Manual) % Monocytes % (Manual) % Eosinophils % (Manual) % Neutrophils # (Manual) (1.4-6.5) K/uL Total Absolute Neuts (1.4-6.5) K/uL Lymphocytes # (Manual) (1.2-3.4) K/uL Total Abs Lymphocytes (1.2-3.4) K/uL Monocytes # (Manual) (0.11-0.59) K/uL Eosinophils # (Manual) (0-0.5) K/uL ESR (0-20) mm/hr PT (9.0-12.0) Seconds INR (0.9-1.1) APTT (21.0-31.0) Seconds PTT Ratio VBG pH (7.36-7.41) VBG pCO2 (38-50) mmHg VBG pO2 mmHg VBG HCO3 mmol/L VBG O2 Saturation % VBG Base Excess mEq/L Barometric Pressure mm/Hg Sodium (136-145) mmol/L Potassium (3.5-5.1) mmol/L Chloride (98-107) mmol/L Carbon Dioxide (21-32) mmol/L Anion Gap (3-11) BUN (7-18) mg/dl Creatinine (0.6-1.4) mg/dl Est Cr Clr Drug Dosing ml/min Est GFR ( Amer) ml/min Est GFR (Non-Af Amer) ml/min BUN/Creatinine Ratio (10-20) Glucose (70-99) mg/dl Lactate 0.7 (0.4-2.0) mmol/L Calcium (8.5-10.1) mg/dl Total Bilirubin (0.2-1) mg/dl AST (15-37) U/L ALT (12-78) Alkaline Phosphatase (45-117) U/L Troponin I (0-0.045) ng/ml C-Reactive Protein (0-0.29) mg/dl NT-Pro-B Natriuret Pep (0-1800) pg/ml Total Protein (6.4-8.2) gm/dl Albumin (3.4-5.0) gm/dl Globulin (2.5-4.0) gm/dl Albumin/Globulin Ratio (0.9-2) Procalcitonin (0-0.5) ng/ml Urine Color Yellow Urine Appearance Clear (Clear) Urine pH 6.5 (4.5-7.5) Ur Specific [place] 1.016 (1.000-1.030) Urine Protein Trace H (Negative) Urine Glucose (UA) Negative (Negative) Urine Ketones Negative (Negative) Urine Blood Trace H (Negative) Urine Nitrite Negative (Negative) Urine Bilirubin Negative (Negative) Urine Urobilinogen Negative (Negative) Ur Leukocyte Esterase Trace H (Negative) Urine WBC (Auto) 1-5 (0-5) /hpf Urine RBC (Auto) 0-4 (0-4) /hpf U Hyaline Cast (Auto) 0 (0-5) /lpf U Epithel Cells (Auto) 0-5 (0-5) /lpf Urine Bacteria (Auto) Negative (Negative) SARS-CoV-2, RNA, NAAT NEGATIVE (NEGATIVE) Administered Medications Discontinued Medications Furosemide (Furosemide 40 Mg/4 Ml Vial) 40 mg IV ONE ONE Stop: 06/12/21 11:25 Last Admin: 06/12/21 11:59 Dose: 40 mg Documented by: [id number] Ioversol (Optiray 320 125ml) 120 ml IV ONCE ONE Stop: 06/12/21 14:41 Last Admin: 06/12/21 14:35 Dose: 120 ml Documented by: [id number] Imaging Data Radiologist's Impression: Chest X-Ray 06/12/21 08:49 XR chest 1V portable CLINICAL HISTORY: Dyspnea TECHNIQUE: Single frontal radiograph of the chest was obtained. Comparison: Comparison is made to chest one view 05/27/2021 FINDINGS: Stable median sternotomy wires. Calcified aortic knob is seen. Multifocal airspace opacities are seen. Small left and trace right pleural effusion, unchanged from prior exam. IMPRESSION: 1. Multifocal airspace opacities are slightly increased compared to the prior exam. 2. There is a small left and trace right pleural effusion. ACT 112: Negative or not required by law. Electronically signed by: Syed Coley M.D. 06/12/2021 9:27 AM Chest CTA 06/12/21 12:11 CT angio chest PE protocol CLINICAL HISTORY: PE, eval pluearal effusion and infiltrates TECHNIQUE: Multidetector row helical CT of the chest was performed. Coronal and sagittal reformations were obtained. Coronal and sagittal MIPS were obtained from the axial data set and were submitted for review. Automated dose lowering techniques and/or adjustment according to patient size were utilized for this exam. Comparison: None available at the time of this dictation. FINDINGS: Lungs and pleura: There is a small left and trace right pleural effusion with associated atelectasis. Scattered groundglass opacities are seen. A nodular density is seen at the right lung base (series 4 image 48). Heart and pericardium: There is cardiomegaly without evidence of pericardial effusion. A and aortic appendage occlusion device is seen. Vessels: Severe atherosclerotic changes in the aorta and coronary arteries. The pulmonary trunk measures 33 mm in diameter. Mediastinum and dav: An 11 mm left lower paratracheal lymph node is seen. Chest wall and lower neck: Unremarkable. Abdomen: Unremarkable. Bones: Degenerative changes in the thoracic spine. IMPRESSION: 1. No evidence of pulmonary embolism. 2. Small left and trace right pleural effusion. 3. Diffuse groundglass opacities which may reflect infectious/inflammatory process. Nodular density at the right lung base which may represent a focus of consolidation. 4. Pulmonary hypertension. ACT 112: Negative or not required by law. Electronically signed by: Syed Coley M.D. 06/12/2021 2:54 PM Discharge Plan Visit Data Chief Complaint: Shortness of Breath/Dyspnea ED Provider: Reid Barroso Discharge Problem: Pulmonary edema, SOB (shortness of breath) Patient Disposition: Being Evaluated by Hospitalist Discharge Instructions Interventions: ED Discharge Assessment Last Done: 06/12/21 14:02
[2021-06-12 09:20] LABS: INR 1.1 (0.9-1.1); Partial Thromboplastin Time 26.2 Seconds (21.0-31.0); Prothrombin Time 11.3 Seconds (9.0-12.0)
--- NOTE | 2021-06-12 09:28 | XRay Report ---
XR chest 1V portable CLINICAL HISTORY: Dyspnea TECHNIQUE: Single frontal radiograph of the chest was obtained. Comparison: Comparison is made to chest one view 05/27/2021 FINDINGS: Stable median sternotomy wires. Calcified aortic knob is seen. Multifocal airspace opacities are seen . Small left and trace right pleural effusion, unchanged from prior exam. IMPRESSION: 1. Multifocal airspace opacities are slightly increased compared to the prior exam. 2. There is a small left and trace right pleural effusion. ACT 112: Negative or not required by law. Electronically signed by: Syed Coley M.D. 06/12/2021 9:27 AM
[2021-06-12 09:30] LABS: Hematocrit (blood only) 33.6 % (42-52); Hemoglobin 9.7 g/dL (14.0-18.0); Mean Corpuscular Hemoglobin 30.5 pg (25-34); Mean Corpuscular Hgb Conc 28.9 g/dL (32-36); Mean Corpuscular Volume 105.7 fL (80-100); Mean Platelet Volume 9.3 fL (7.4-10.4); Platelet Count 231 K/uL (130-400); RDW Coefficient of Variation 17.2 % (11.5-14.5); RDW Standard Deviation 66.3 fL (36.4-46.3); Red Blood Count 3.18 M/uL (4.7-6.1); White Blood Count 46.46 K/uL (4.8-10.8)
[2021-06-12 09:34] LABS: ALC (manual) 39.07 K/uL (1.2-3.4); ANC (manual) 6.13 K/uL (1.4-6.5); Eosinophils # (manual) 0.42 K/uL (0-0.5); Eosinophils % (manual) 0.9 %; Lymphocytes # (manual) 39.07 K/uL (1.2-3.4); Lymphocytes % (manual) 84.1 %; Monocytes # (manual) 0.84 K/uL (0.11-0.59); Monocytes % (manual) 1.8 %; Neutrophils # (manual) 6.13 K/uL (1.4-6.5); Neutrophils % (manual) 13.2 %
[2021-06-12 09:46] LABS: Base Excess VBG 14.4 mEq/L; Oxygen Saturation VBG 83.4 %; pH VBG 7.33 (7.36-7.41)
[2021-06-12 09:51] LABS: Alanine Aminotransferase 22 (12-78); Albumin Globulin Ratio 0.7 (0.9-2); Albumin Level 2.8 gm/dl (3.4-5.0); Alkaline Phosphatase 108 U/L (45-117); Aspartate Aminotransferase 16 U/L (15-37); BUN Creatinine Ratio 20.3 (10-20); Bilirubin,Total 0.3 mg/dl (0.2-1); Blood Urea Nitrogen 22 mg/dl (7-18); C Reactive Protein 0.79 mg/dl (0-0.29); Calcium 8.6 mg/dl (8.5-10.1); Carbon Dioxide 42 mmol/L (21-32); Chloride 99 mmol/L (98-107); Creatinine Clr Calc Pharmacy 53.6 ml/min; Est GFR (African American) 70.2 ml/min; Est GFR (Non-African American) 60.5 ml/min; Globulin 4.2 gm/dl (2.5-4.0); Glucose 131 mg/dl (70-99); NT Pro B Type Natriuretic Pept 2100 pg/ml (0-1800); Sodium 142 mmol/L (136-145); Troponin I < 0.015 ng/ml (0-0.045)
[2021-06-12] MEDS ORDERED: FUROSEMIDE 40 MG/4 ML VIAL IV ONE ×2 (11:24→20:00)
[2021-06-12 11:59] LABS: Appearance Urine Clear (Clear); Bacteria Urine Automated Negative (Negative); Bilirubin Urine Negative (Negative); Blood Urine Trace (Negative); Cast Urine Automated 0 /lpf (0-5); Color Urine Yellow; Epithelial Cell Urine Auto 0-5 /lpf (0-5); Glucose Urine UA Negative (Negative); Ketones Urine Negative (Negative); Leukocyte Esterase Urine Trace (Negative); Nitrite Urine Negative (Negative); Protein Urine Trace (Negative); RBC Urine Automated 0-4 /hpf (0-4); Specific Gravity Urine 1.016 (1.000-1.030); Urobilinogen Urine Negative (Negative); pH Urine 6.5 (4.5-7.5)
--- NOTE | 2021-06-12 11:59 | Electrocardiogram Report ---
Test Reason : Blood Pressure : / mmHG Vent. Rate : 076 BPM Atrial Rate : 288 BPM P-R Int : 000 ms QRS Dur : 092 ms QT Int : 356 ms P-R-T Axes : 000 048 070 degrees QTc Int : 400 ms Atrial fibrillation with premature ventricular or aberrantly conducted complexes Abnormal ECG When compared with ECG of 27-MAY-2021 10:37, No significant change was found Confirmed by Chandler Burnham ([id number]) on 06/12/2021 11:59:44 AM Referred By: Confirmed By:Chandler Burnham
[2021-06-12] MEDS ORDERED: GLUCOSE 10 TABS/TUBE PO PRN (12:15)
[2021-06-12] MEDS ORDERED: GLUCAGON FOR INJ 1 MG VIAL SQ PRN (12:15)
[2021-06-12] MEDS ORDERED: GLUCOSE 40% GEL 15 GM TUBE PO PRN (12:15)
[2021-06-12] MEDS ORDERED: DEXTROSE 50% 50 ML SYRINGE IV PRN (12:15)
[2021-06-12] MEDS ORDERED: CARBOHYDRATES FOR HYPOGLYCEMIA PO PRN (12:15)
[2021-06-12] MEDS ORDERED: ENOXAPARIN INJ 40 MG/0.4 ML SYR SQ ONE (12:30)
--- NOTE | 2021-06-12 12:48 | History & Physical Report ---
Date of Service June 12, 2021 Assessment & Plan (1) Dyspnea: Plan: Multifactorial with most likely etiology at this time being acute on chronic HF with elevated RSVP - DDX- Acute on chronic HFrEF, Post COVID Vs. Pulmonary HTN in the setting of possible fibrosis vs. Afib - Will diurese with an additional 40mg Lasix tonight- goal ~750ml negative tonight - Continue with home albuterol nebulizer - CTA of the chest- - Patient with no known history of COPD - CPAP at night or PRN (2) Hypercarbia: Plan: As above - VBG PCO2- 83 with compensation with HCo3 of 43 - ? Underlying pulmonary disease not diagnosed (3) Hypoxia: Plan: Remains on 2L NC - Blood cultures pending - as he does not have productive cough, WBC chronically elevated,and PCT 0.13 will hold on antibiotics at this time - As above multiple underlying etiologies. (4) CHF (congestive heart failure): Plan: Acute on chronic decompensated heart failure - secondary to fluid overload and RV HTN- disures as above - CPAP as above - Monitor effectiveness of treatment (5) Hypertension: Plan: Controlled - Continue Lasix - Continue BB (6) Atrial fibrillation: Plan: Rate controlled - CHADS vasc 3 - Daughter reports PCP stopping his Eliquis and he has not been taking (7) COVID-19: Plan: As above (8) DM II (diabetes mellitus, type II), controlled: Plan: Discontinue Metformin - Aspart sliding scale - May need basal insulin on board History of Present Illness Primary Care Provider: Hayden Baird 89 YOM with past medical history of: COVID 19- DX 05/06/21 and admitted 05/15/21, AFIB (not on Eliquis as medrec states), Mitral Regurge, Watchman procedures 2019, Chest mass removal with sternotomy 1995, CLL, anemia, gout, HLD, BPH, insomnia, HFrEF (45-50%) with LVH and elevated RSVP. Patient was discharged from the hospital with COVID on 05/19 never requiring intubation or non-invasive positive pressure ventilation. He was sent home on 2.5L oxygen with physical therapy assistance. Patient daughter who lives with him and assists him is present for H&P. Overall patient returns to the EMD today for increased dyspnea without cough, chest pain, or sputum. He feels as this got worse over the past 24-48 hours. He is able to walk with his walker and cane approx 20-25 feet before he needs to take a rest and catch his breath. His daughter reports he rest for a few seconds and is able to continue to go to bathroom and back. Patient endorses decrease in overall activity and movement since he has been home. Patient does have some lower extremity edema that the daughter endorses has gotten worse over the past 24 hours. In the EMD the patient had routine labs performed to include troponin I that was negative, ECG- wich reveals atrial fibrillation, and CXR with reveals chronic left lower pleural effusion as well as continued multifocal airspace opacities. Patient was given 40mg of Lasix in the EMD IV x1. Patient will be admitted to evaluate his dyspnea, hypoxia, and hypercarbia. Will obtain CTA of the chest to rule out PE with his afib and decreased movement at home. He is on his baseline oxygen. Will continue to diurese tonight with goal net negative fluid balance in 24 hours of 500-750ml. Patient will be admitted to COVID unit and remain on isolation. Allergies Allergy/AdvReac Type Severity Reaction Status Date / Time No Known Allergies Allergy Verified 06/12/21 10:23 Home Medications Medication Instructions Recorded Confirmed Type allopurinol 300 mg tablet 300 mg PO DAILY 05/15/21 06/12/21 History aspirin 81 mg tablet,delayed 81 mg PO DAILY 05/15/21 06/12/21 History release atorvastatin 20 mg tablet 20 mg PO DAILY 05/15/21 06/12/21 History docusate sodium 100 mg capsule 100 mg PO BID PRN 05/15/21 06/12/21 History (Colace) finasteride 5 mg tablet 5 mg PO DAILY 05/15/21 06/12/21 History furosemide 40 mg tablet 40 mg PO BID 05/15/21 06/12/21 History metformin 500 mg tablet 500 mg PO DAILY 05/15/21 06/12/21 History metoprolol tartrate 25 mg tablet 12.5 mg PO DAILY 05/15/21 06/12/21 History nitroglycerin 0.4 mg sublingual 0.4 mg SUBLINGUAL UD PRN 05/15/21 06/12/21 History tablet (Nitrostat) sennosides 8.6 mg tablet (senna) 17.2 mg PO HS 05/15/21 06/12/21 History tamsulosin 0.4 mg capsule 0.4 mg PO DAILY 05/15/21 06/12/21 History thiamine HCl (vitamin B1) 100 mg 100 mg PO DAILY 05/15/21 06/12/21 History tablet apixaban 5 mg tablet (Eliquis) 5 mg PO BID #60 tab 05/19/21 06/12/21 Rx mirtazapine 15 mg tablet 15 mg PO HS #30 tab 05/19/21 06/12/21 Rx albuterol sulfate 2.5 mg INHALATION Q4 PRN 06/12/21 06/12/21 History Past Med/Surg History Medical History (Updated 06/12/21 @ 15:04 by Reid Barroso DO) Atrial fibrillation BPH w urinary obs/LUTS CAD (coronary artery disease) CHF (congestive heart failure) Complicated bereavement Constipation Diabetes mellitus Gout Hyperlipidemia LDL goal <70 Hypertension Insomnia Presence of Watchman left atrial appendage closure device Social History (Updated 06/12/21 @ 12:34 by FIDEL Glaser) Smoking Status: Former smoker Tobacco Type: Cigarettes Second Hand Exposure: No; Do You Dip or Chew Tobacco: No; Tobacco Cessation Education Requested by Patient: No Hx Alcohol Use: Yes Alcohol type: other Hx Substance Use: No Preferred Language: Thai Communication Ability: Effective Customer Service Analyst Required: No Beliefs That Will Affect Care: Shinto Shinto Beliefs: Bulgarian Caodaism Current Living Situation: Alone Current Living Situation Comment: W/ family support. Other Information That Helps Us Care for You: No Feels Safe at Home: Yes Safety Concerns: Feels Safe At This Time Assistive Devices: Oxygen - Continuous Review of Systems Review of Systems: REVIEW OF SYSTEMS: Constitutional: No fever, sweats or chills Eyes: No diplopia, no worsening or blurred vision ENT: normal hearing, no trouble swallowing Respiratory: dyspnea at rest or on exertion, No cough, sputum, Cardiovascular: No chest pain, tightness or palpitations Abdomen:(+) constipation history, No pain, nausea, vomiting, diarrhea or constipation Musculoskeletal: (+) right knee replacement, No joint pain, calf pain, swelling Neurologic: No weakness, numbness/tingling, or balance problems Psychiatric: No anxiety or depression Skin: (+) sacral decub, present on admission , No rash or itch Physical Exam Physical Exam: PHYSICAL EXAM: General: awake, alert, no apparent distress Head: Normocephalic, atraumatic ENT: PERRL, EOMI, no pharyngeal exudate, mucous membranes moist Neuro: AAO x 3, speech clear and appropriate, strength intact bilaterally 5/5, sensation intact and equal all extremities and dermatomes, no pronator drift Chest: equal rise and fall of the chest, no accessory muscle use, no heaves or thirlls, scattered crackles on auscultation decreased left lower base, on 2LNC Cardiac: Regular rate and rhythm, telemetry reviewed- irregular afib rate controlled, skin warm dry, cap refill <3 seconds, peripheral pulses +2 no JVD, soft systolic murmur, +3 pitting edema to bilateral lower extremities that goes to just below knee and sacral. GI: NABS x 4 quadrants, soft, nontender to palpation, no rebound, guarding or tenderness : Spontaneously voiding, no pain, no CVA tenderness, Extremities: Normal inspection, no peripheral edema or erythema, calfs nontender to palpation Psych: Normal mood and affect Skin: no rash or erythema Results & Data Results & Data ([facility]) Vital Signs (Past 12 Hours) Vital Signs Temp Pulse Pulse Resp BP BP Pulse Ox 06/12/21 12:00 76 22 143/76 H 97 06/12/21 11:30 76 24 126/71 97 06/12/21 11:01 74 24 106/55 L 96 06/12/21 11:00 76 24 96 06/12/21 10:31 70 26 H 120/67 95 06/12/21 10:30 86 16 06/12/21 10:01 64 24 112/71 98 06/12/21 10:00 79 24 96 06/12/21 09:30 68 24 104/64 06/12/21 09:05 36.8 C 63 22 110/61 98 06/12/21 09:03 36.8 C 63 63 22 110/61 98 06/12/21 09:01 85 23 132/65 95 06/12/21 09:00 80 25 H 94 06/12/21 08:46 75 26 H 98 Laboratory Results Abnormal lab results 06/12/21 06/12/21 06/12/21 Range/Units 08:55 08:55 08:55 WBC 46.46 H* (4.8-10.8) K/uL RBC 3.18 L (4.7-6.1) M/uL Hgb 9.7 L (14.0-18.0) g/dL Hct 33.6 L (42-52) % MCV 105.7 H (80-100) fL MCHC 28.9 L (32-36) g/dL RDW Std Deviation 66.3 H (36.4-46.3) fL RDW Coeff of Eladio 17.2 H (11.5-14.5) % Lymphocytes # (Manual) 39.07 H (1.2-3.4) K/uL Total Abs Lymphocytes 39.07 H (1.2-3.4) K/uL Monocytes # (Manual) 0.84 H (0.11-0.59) K/uL ESR (0-20) mm/hr VBG pH 7.33 L (7.36-7.41) VBG pCO2 83 H (38-50) mmHg Carbon Dioxide 42 H* (21-32) mmol/L Anion Gap 1.0 L (3-11) BUN 22 H (7-18) mg/dl BUN/Creatinine Ratio 20.3 H (10-20) Glucose 131 H (70-99) mg/dl C-Reactive Protein 0.79 H (0-0.29) mg/dl NT-Pro-B Natriuret Pep 2100 H (0-1800) pg/ml Albumin 2.8 L (3.4-5.0) gm/dl Globulin 4.2 H (2.5-4.0) gm/dl Albumin/Globulin Ratio 0.7 L (0.9-2) Urine Protein (Negative) Urine Blood (Negative) Ur Leukocyte Esterase (Negative) 06/12/21 06/12/21 Range/Units 08:55 09:18 WBC (4.8-10.8) K/uL RBC (4.7-6.1) M/uL Hgb (14.0-18.0) g/dL Hct (42-52) % MCV (80-100) fL MCHC (32-36) g/dL RDW Std Deviation (36.4-46.3) fL RDW Coeff of Eladio (11.5-14.5) % Lymphocytes # (Manual) (1.2-3.4) K/uL Total Abs Lymphocytes (1.2-3.4) K/uL Monocytes # (Manual) (0.11-0.59) K/uL ESR 58 H (0-20) mm/hr VBG pH (7.36-7.41) VBG pCO2 (38-50) mmHg Carbon Dioxide (21-32) mmol/L Anion Gap (3-11) BUN (7-18) mg/dl BUN/Creatinine Ratio (10-20) Glucose (70-99) mg/dl C-Reactive Protein (0-0.29) mg/dl NT-Pro-B Natriuret Pep (0-1800) pg/ml Albumin (3.4-5.0) gm/dl Globulin (2.5-4.0) gm/dl Albumin/Globulin Ratio (0.9-2) Urine Protein Trace H (Negative) Urine Blood Trace H (Negative) Ur Leukocyte Esterase Trace H (Negative) Diagnostic Findings Chest X-Ray 06/12/21 08:49 XR chest 1V portable CLINICAL HISTORY: Dyspnea TECHNIQUE: Single frontal radiograph of the chest was obtained. Comparison: Comparison is made to chest one view 05/27/2021 FINDINGS: Stable median sternotomy wires. Calcified aortic knob is seen. Multifocal airspace opacities are seen. Small left and trace right pleural effusion, unchanged from prior exam. IMPRESSION: 1. Multifocal airspace opacities are slightly increased compared to the prior exam. 2. There is a small left and trace right pleural effusion. ACT 112: Negative or not required by law. Electronically signed by: Syed Coley M.D. 06/12/2021 9:27 AM Medications Administered Home Medications allopurinol 300 mg tablet 300 mg PO DAILY 05/15/21 [History Confirmed 06/12/21] aspirin 81 mg tablet,delayed release 81 mg PO DAILY 05/15/21 [History Confirmed 06/12/21] atorvastatin 20 mg tablet 20 mg PO DAILY 05/15/21 [History Confirmed 06/12/21] docusate sodium 100 mg capsule (Colace) 100 mg PO BID PRN 05/15/21 [History Confirmed 06/12/21] finasteride 5 mg tablet 5 mg PO DAILY 05/15/21 [History Confirmed 06/12/21] furosemide 40 mg tablet 40 mg PO BID 05/15/21 [History Confirmed 06/12/21] metformin 500 mg tablet 500 mg PO DAILY 05/15/21 [History Confirmed 06/12/21] metoprolol tartrate 25 mg tablet 12.5 mg PO DAILY 05/15/21 [History Confirmed 06/12/21] nitroglycerin 0.4 mg sublingual tablet (Nitrostat) 0.4 mg SUBLINGUAL UD PRN 05/15/21 [History Confirmed 06/12/21] sennosides 8.6 mg tablet (senna) 17.2 mg PO HS 05/15/21 [History Confirmed 06/12/21] tamsulosin 0.4 mg capsule 0.4 mg PO DAILY 05/15/21 [History Confirmed 06/12/21] thiamine HCl (vitamin B1) 100 mg tablet 100 mg PO DAILY 05/15/21 [History Conf irmed 06/12/21] apixaban 5 mg tablet (Eliquis) 5 mg PO BID #60 tab 05/19/21 [Rx Confirmed 06/12/21] mirtazapine 15 mg tablet 15 mg PO HS #30 tab 05/19/21 [Rx Confirmed 06/12/21] albuterol sulfate 2.5 mg INHALATION Q4 PRN 06/12/21 [History Confirmed 06/12/21] Active Medications Dextrose (Dextrose 50% 50 Ml Syringe) 25 - 50 ml IV UD PRN; Protocol PRN Reason: Hypoglycemia Protocol Stop: 07/12/21 12:14 Enoxaparin Sodium (Enoxaparin Inj 40 Mg/0.4 Ml Syr) 40 mg SQ Q12H YADI Stop: 07/13/21 00:59 Glucagon (Glucagon For Inj 1 Mg Vial) 1 mg SQ UD PRN; Protocol PRN Reason: Hypoglycemia Protocol Stop: 07/12/21 12:14 Glucose (Glucose 10 Tabs/Tube) 4 - 8 tabs PO UD PRN; Protocol PRN Reason: Hypoglycemia Protocol Stop: 07/12/21 12:14 Glucose (Glucose 40% Gel 15 Gm Tube) 15 - 30 gm PO UD PRN; Protocol PRN Reason: Hypoglycemia Protocol Stop: 07/12/21 12:14 Insulin Aspart (Insulin Aspart Per Unit) 0 units SC ACHS YADI Stop: 07/12/21 16:29 Miscellaneous (Carbohydrates For Hypoglycemia ) 15 - 30 gm PO UD PRN PRN Reason: Hypoglycemia Protocol Stop: 02/09/22 12:14 Discontinued Medications Furosemide (Furosemide 40 Mg/4 Ml Vial) 40 mg IV ONE ONE Stop: 06/12/21 11:25 Last Admin: 06/12/21 11:59 Dose: 40 mg Documented by: [id number] ECG Additional Comments: Vent. Rate : 076 BPM Atrial Rate : 288 BPM P-R Int : 000 ms QRS Dur : 092 ms QT Int : 356 ms P-R-T Axes : 000 048 070 degrees QTc Int : 400 ms Atrial fibrillation with premature ventricular or aberrantly conducted complexes Abnormal ECG When compared with ECG of 27-MAY-2021 10:37, No significant change was found Confirmed by Chandler Burnham ([id number]) on 06/12/2021 11:59:44 AM Code Status & VTE Plan Code Status CODE: FULL VTE: SCDs, Lovenox 40mg sq BID VTE Prophylaxis Plan VTE Prophylaxis will be ordered: Yes Supervising Physician Co-Signing Physician Notes I personally saw and examined the patient. I verified all hutchins points and agree with FIDEL Jarrett with the following exceptions and/or additions: 89 year old male who presents to the ER with worsening shortness of breath following recent COVID-19 infection at the beginning of May. Relatively acute worsening over last few days. No fever or chills. O/E Accessory muscle use but able to speak in complete sentences, HS irregular, no murmur, no JVD, Chest - bibasal fine crackles, 2+ pitting edema b/l to knee A/P Acute on chronic congestive heart failure with borderline EF - LVEF 45-50% on recent echo, no need to repeat. Agree with Lasix 40mg IV BID to aim for net negative fluid balance Acute respiratory failure with hypoxia and hypercapnia - optimize fluid status. Outside 21 days from initial COVID-19 diagnosis therefore no need for continued isolation. CT for PE - negative for pulmonary embolism. Atrial fibrillation - Patient with watchman device implanted therefore not on anticoagulation, rate controlled on metoprolol VTE Prophylaxis - Lovenox 40mg SQ daily, no need for BID dosing given COVID diagnosis over 1 month ago Otherwise treatment as above PG Care Time/CCT Total # of Minutes Spent Total Time Spent with Patient: Total time spent is greater than 50% in coordination of care (as documented) at patient's floor/unit and/or counseling patient: Coding Level of Care Code 39936 Initial Inpt Care Lvl 3 Diagnoses Dyspnea R06.00 Hypercarbia R06.89 Hypoxia R09.02 CHF (congestive heart failure) I50.9 Hypertension I10 Atrial fibrillation I48.91 Atrial fibrillation type: unspecified COVID-19 U07.1 DM II (diabetes mellitus, type II), controlled E11.9 (1) Atrial fibrillation Atrial fibrillation type: unspecified Qualified Code(s): I48.91 - Unspecified atrial fibrillation
[2021-06-12] MEDS ORDERED: OPTIRAY 320 125ml IV ONE (14:40)
--- NOTE | 2021-06-12 14:55 | CT Scan Report ---
CT angio chest PE protocol CLINICAL HISTORY: PE, eval pluearal effusion and infiltrates TECHNIQUE: Multidetector row helical CT of the chest was performed. Coronal and sagittal reformations were obtained. Coronal and sagittal MIPS were obtained from the axial data set and were submitted fo r review. Automated dose lowering techniques and/or adjustment according to patient size were utiliz ed for this exam. Comparison: None available at the time of this dictation. FINDINGS: Lungs and pleura: There is a small left and trace right pleural effusion with associated atelectasis. Scattered groundglass opacities are seen. A nodular density is seen at the right lung base (series 4 image 48). Heart and pericardium: There is cardiomegaly without evidence of pericardial effusion. A and aortic a ppendage occlusion device is seen. Vessels: Severe atherosclerotic changes in the aorta and coronary arteries. The pulmonary trunk measu res 33 mm in diameter. Mediastinum and dav: An 11 mm left lower paratracheal lymph node is seen. Chest wall and lower neck: Unremarkable. Abdomen: Unremarkable. Bones: Degenerative changes in the thoracic spine. IMPRESSION: 1. No evidence of pulmonary embolism. 2. Small left and trace right pleural effusion. 3. Diffuse groundglass opacities which may reflect infectious/inflammatory process. Nodular density at the right lung base which may represent a focus of consolidation. 4. Pulmonary hypertension. ACT 112: Negative or not required by law. Electronically signed by: Syed Coley M.D. 06/12/2021 2:54 PM
[2021-06-12] MEDS ORDERED: ALBUTEROL 0.083% NEBU SOLN 3 ML VIAL INH PRN (15:28)
[2021-06-12] MEDS ORDERED: DOCUSATE SODIUM 100 MG CAP PO PRN (15:28)
[2021-06-12] MEDS ORDERED: INSULIN ASPART PER UNIT SC SCH (16:30)
[2021-06-12] MEDS: INSULIN ASPART PER UNIT SC SCH ×2 (17:33→21:42)
[2021-06-12] MEDS: SENNA 8.6 MG TAB PO SCH (21:27)
[2021-06-12] MEDS: ENOXAPARIN INJ 40 MG/0.4 ML SYR SQ SCH (21:27)
[2021-06-12] MEDS: MIRTAZAPINE TAB 15 MG TAB PO SCH (21:27)
[2021-06-13] MEDS ORDERED: OLANZapine ZYDIS 5 MG ORALLY DIS. TAB PO ONE (00:16)
[2021-06-13] MEDS ORDERED: ENOXAPARIN INJ 40 MG/0.4 ML SYR SQ SCH (01:00)
[2021-06-13] MEDS ORDERED: OLANZAPINE 2.5 MG TAB PO ONE (05:42)
[2021-06-13 06:44] LABS: Hematocrit (blood only) 32.9 % (42-52); Hemoglobin 9.6 g/dL (14.0-18.0); Mean Corpuscular Hemoglobin 30.5 pg (25-34); Mean Corpuscular Hgb Conc 29.2 g/dL (32-36); Mean Corpuscular Volume 104.4 fL (80-100); Mean Platelet Volume 9.5 fL (7.4-10.4); Platelet Count 227 K/uL (130-400); RDW Coefficient of Variation 17.4 % (11.5-14.5); RDW Standard Deviation 66.6 fL (36.4-46.3); Red Blood Count 3.15 M/uL (4.7-6.1); White Blood Count 39.66 K/uL (4.8-10.8)
[2021-06-13 07:03] LABS: BUN Creatinine Ratio 19.1 (10-20); Calcium 8.8 mg/dl (8.5-10.1); Creatinine Clr Calc Pharmacy 52.3 ml/min; Est GFR (African American) 70.2 ml/min; Est GFR (Non-African American) 60.5 ml/min; Magnesium 2.3 mg/dl (1.8-2.4); Potassium 4.1 mmol/L (3.5-5.1)
[2021-06-13 07:18] LABS: ALC (manual) 33.71 K/uL (1.2-3.4); ANC (manual) 5.24 K/uL (1.4-6.5); Lymphocytes # (manual) 33.71 K/uL (1.2-3.4); Monocytes # (manual) 0.71 K/uL (0.11-0.59); Monocytes % (manual) 1.8 %; Neutrophils # (manual) 5.24 K/uL (1.4-6.5); Neutrophils % (manual) 13.2 %; Smudge Cells Present
[2021-06-13] MEDS: METOPROLOL TARTRATE 25 MG TAB PO SCH (08:12)
[2021-06-13] MEDS: THIAMINE HCL 100 MG TAB PO SCH (08:13)
[2021-06-13] MEDS: allopurinoL 300 MG TAB PO SCH (08:14)
[2021-06-13] MEDS: ATORVASTATIN 20 MG TAB PO SCH (08:14)
[2021-06-13] MEDS: ASPIRIN 81 MG ECTAB PO SCH (08:14)
[2021-06-13] MEDS: FINASTERIDE 5 MG TAB PO SCH (08:14)
[2021-06-13] MEDS: TAMSULOSIN HCL 0.4 MG CAP PO SCH (08:15)
[2021-06-13] MEDS: INSULIN ASPART PER UNIT SC SCH ×4 (08:17→21:00)
[2021-06-13] MEDS ORDERED: FUROSEMIDE 40 MG/4 ML VIAL IV ONE (11:27)
[2021-06-13] MEDS ORDERED: MELATONIN 3 MG TAB PO PRN (13:42)
[2021-06-13] MEDS ORDERED: PARoxetine HCL 10 MG TAB PO SCH ×2 (18:00)
--- NOTE | 2021-06-13 20:25 | Hospitalist Progress Note ---
Date of Service June 13, 2021 Assessment & Plan (1) Dyspnea: Plan: Multifactorial with most likely etiology at this time being acute on chronic HF with elevated RSVP - DDX- Acute on chronic HFrEF, Post COVID Vs. Pulmonary HTN in the setting of possible fibrosis vs. Afib - Appears to have improved with diuresis. -WILL order another 40 mg of lasix -Patient may benefit form a sleep study. - Continue with home albuterol nebulizer - CTA of the chest- - Patient with no known history of COPD - CPAP at night or PRN -Creatinine is stable. (2) Hypercarbia: Plan: As above - VBG PCO2- 83 with compensation with HCo3 of 43 - ? Underlying pulmonary disease not diagnosed (3) Hypoxia: Plan: Remains on 2L NC - Blood cultures pending - as he does not have productive cough, WBC chronically elevated,and PCT 0.13 will hold on antibiotics at this time - As above multiple underlying etiologies. (4) CHF (congestive heart failure): Plan: Acute on chronic decompensated heart failure - secondary to fluid overload and RV HTN- disures as above - CPAP as above - Monitor effectiveness of treatment (5) Hypertension: Plan: Controlled - Continue Lasix - Continue BB (6) Atrial fibrillation: Plan: Rate controlled - CHADS vasc 3 - Daughter reports PCP stopping his Eliquis and he has not been taking (7) COVID-19: Plan: As above (8) DM II (diabetes mellitus, type II), controlled: Plan: Discontinue Metformin - Aspart sliding scale - May need basal insulin on board (9) Insomnia: Plan: Patient has insominia. Patient also suffers from depression. will add paroxetine 10 mg po PM. will reassess in AM. Admission and Anticipated Discharge Date Admission Date: June 12, 2021 Subjective 89 yo male reports feeling better than when he came in. However, he is unaware that he is in a hospital. D/W nurse, patient has been calling his daughter non stop throughout the day. He has been telling them that they pulled a fast one on him. I spoke with his daughter Valentine. It appears he has been going downhill since Covid HIT. He no longer works, and his . She notes that his memory is not the same. Review of Systems Review of Systems: All systems reviewed & are unremarkable except as noted in HPI & below Physical Exam Physical Exam: General: awake, alert, no apparent distress Head: Normocephalic, atraumatic ENT: PERRL, EOMI, no pharyngeal exudate, mucous membranes moist Neuro: AAO x 3, speech clear and appropriate, strength intact bilaterally 5/5, sensation intact and equal all extremities and dermatomes, no pronator drift Chest: equal rise and fall of the chest, no accessory muscle use, no heaves or thirlls, scattered crackles on auscultation decreased left lower base, on 2LNC Cardiac: Regular rate and rhythm, telemetry reviewed- irregular afib rate controlled, skin warm dry, cap refill <3 seconds, peripheral pulses +2 no JVD, soft systolic murmur, +3 pitting edema to bilateral lower extremities that goes to just below knee and sacral. GI: NABS x 4 quadrants, soft, nontender to palpation, no rebound, guarding or tenderness : Spontaneously voiding, no pain, no CVA tenderness, Extremities: Normal inspection, no peripheral edema or erythema, calfs nontender to palpation Psych: Normal mood and affect Skin: no rash or erythema Results & Data Results & Data ([facility]) Vital Signs (Past 12 Hours) Vital Signs Temp Pulse Resp BP Pulse Ox 06/13/21 19:30 36.7 C 69 18 136/62 96 06/13/21 14:58 36.5 C 71 20 129/55 L 95 PG Care Time/CCT Total # of Minutes Spent Total Time Spent with Patient: Total time spent is greater than 50% in coordination of care (as documented) at patient's floor/unit and/or counseling patient: Coding Level of Care Code 39909 Subseq Hosp Care Lvl 3 Diagnoses Dyspnea R06.00 Hypercarbia R06.89 Hypoxia R09.02 CHF (congestive heart failure) I50.9 Hypertension I10 Atrial fibrillation I48.91 Atrial fibrillation type: unspecified COVID-19 U07.1 DM II (diabetes mellitus, type II), controlled E11.9 Insomnia G47.00 Time Spent (min) 35 (1) Atrial fibrillation Atrial fibrillation type: unspecified Qualified Code(s): I48.91 - Unspecified atrial fibrillation
[2021-06-13] MEDS: ENOXAPARIN INJ 40 MG/0.4 ML SYR SQ SCH (20:59)
[2021-06-13] MEDS: SENNA 8.6 MG TAB PO SCH (20:59)
[2021-06-13] MEDS: MIRTAZAPINE TAB 15 MG TAB PO SCH (20:59)
[2021-06-14 07:46] LABS: Hematocrit (blood only) 31.8 % (42-52); Hemoglobin 9.3 g/dL (14.0-18.0); Mean Corpuscular Hgb Conc 29.2 g/dL (32-36); Mean Corpuscular Volume 102.6 fL (80-100); Mean Platelet Volume 9.6 fL (7.4-10.4); Platelet Count 226 K/uL (130-400); RDW Coefficient of Variation 17.2 % (11.5-14.5); RDW Standard Deviation 64.9 fL (36.4-46.3); White Blood Count 33.54 K/uL (4.8-10.8)
[2021-06-14 07:52] LABS: ALC (manual) 22.81 K/uL (1.2-3.4); ANC (manual) 9.73 K/uL (1.4-6.5); Basophils # (manual) 0.34 K/uL (0-0.2); Lymphocytes # (manual) 22.81 K/uL (1.2-3.4); Monocytes # (manual) 0.67 K/uL (0.11-0.59); Neutrophils # (manual) 9.73 K/uL (1.4-6.5)
[2021-06-14 08:01] LABS: BUN Creatinine Ratio 23.4 (10-20); Calcium 8.4 mg/dl (8.5-10.1); Creatinine Clr Calc Pharmacy 52.4 ml/min; Est GFR (Non-African American) 61.2 ml/min; Magnesium 1.9 mg/dl (1.7-2.4)
[2021-06-14] MEDS: ATORVASTATIN 20 MG TAB PO SCH (09:09)
[2021-06-14] MEDS: allopurinoL 300 MG TAB PO SCH (09:09)
[2021-06-14] MEDS: METOPROLOL TARTRATE 25 MG TAB PO SCH (09:09)
[2021-06-14] MEDS: FINASTERIDE 5 MG TAB PO SCH (09:09)
[2021-06-14] MEDS: THIAMINE HCL 100 MG TAB PO SCH (09:10)
[2021-06-14] MEDS: TAMSULOSIN HCL 0.4 MG CAP PO SCH (09:10)
[2021-06-14] MEDS: INSULIN ASPART PER UNIT SC SCH ×2 (09:10→12:04)
[2021-06-14] MEDS: ASPIRIN 81 MG ECTAB PO SCH (09:43)
[2021-06-14 11:29] LABS: Base Excess VBG 16.4 mEq/L; Oxygen Saturation VBG 81.7 %; pH VBG 7.4 (7.36-7.41)
--- NOTE | 2021-06-14 13:28 | Communication Note ---
Date of Service: June 14, 2021 Patient has Chronic respiratory failure after COVID. Patient arrived to the hospital with hypercapnea. Patiient is also on home oxygen. Patient will benefit from BIPAP device as he is clearly unable to remove CO2 on his own. VBG C02 showed: a level of 83. Will start BIPAP at night: 12/6 at RR 12.
--- NOTE | 2021-06-15 19:31 | Discharge Summary ---
Date of Service June 14, 2021 Admission HPI Per Admitting Provider 89 YOM with past medical history of: COVID 19- DX 05/06/21 and admitted 05/15/21, AFIB (not on Eliquis as medrec states), Mitral Regurge, Watchman procedures 2019, Chest mass removal with sternotomy 1995, CLL, anemia, gout, HLD, BPH, insomnia, HFrEF (45-50%) with LVH and elevated RSVP. Patient was discharged from the hospital with COVID on 05/19 never requiring intubation or non-invasive positive pressure ventilation. He was sent home on 2.5L oxygen with physical therapy assistance. Patient daughter who lives with him and assists him is present for H&P. Overall patient returns to the EMD today for increased dyspnea without cough, chest pain, or sputum. He feels as this got worse over the past 24-48 hours. He is able to walk with his walker and cane approx 20-25 feet before he needs to take a rest and catch his breath. His daughter reports he rest for a few seconds and is able to continue to go to bathroom and back. Patient endorses decrease in overall activity and movement since he has been home. Patient does have some lower extremity edema that the daughter endorses has gotten worse over the past 24 hours. In the EMD the patient had routine labs performed to include troponin I that was negative, ECG- wich reveals atrial fibrillation, and CXR with reveals chronic left lower pleural effusion as well as continued multifocal airspace opacities. Patient was given 40mg of Lasix in the EMD IV x1. Patient will be admitted to evaluate his dyspnea, hypoxia, and hypercarbia. Will obtain CTA of the chest to rule out PE with his afib and decreased movement at home. He is on his baseline oxygen. Will continue to diurese tonight with goal net negative fluid balance in 24 hours of 500-750ml. Patient will be admitted to COVID unit and remain on isolation. 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 Discharge Exam General: awake, alert, no apparent distress Head: Normocephalic, atraumatic ENT: PERRL, EOMI, no pharyngeal exudate, mucous membranes moist Neuro: AAO x 3, speech clear and appropriate, strength intact bilaterally 5/5, sensation intact and equal all extremities and dermatomes, no pronator drift Chest: equal rise and fall of the chest, no accessory muscle use, no heaves or thrills, no crackles heard, on 2LNC Cardiac: Regular rate and rhythm, telemetry reviewed- irregular afib rate controlled, skin warm dry, cap refill <3 seconds, peripheral pulses +2 no JVD, soft systolic murmur, +3 pitting edema to bilateral lower extremities that goes to just below knee and sacral. GI: NABS x 4 quadrants, soft, nontender to palpation, no rebound, guarding or tenderness : Spontaneously voiding, no pain, no CVA tenderness, Extremities: Normal inspection, no peripheral edema or erythema, calfs nontender to palpation Psych: Normal mood and affect Skin: no rash or erythema Discharge Data Allergies Allergy/AdvReac Type Severity Reaction Status Date / Time No Known Allergies Allergy Verified 06/12/21 10:23 Consultations 06/12/21 11:48 ED Decision to Admit Stat Ordered Studies 06/12/21 12:11 CT angio chest PE protocol Stat Hospital Course (1) Dyspnea: Multifactorial with most likely etiology at this time being acute on chron ic HF with elevated RSVP - DDX- Acute on chronic HFrEF, Post COVID Vs. Pulmonary HTN in the setting of possible fibrosis vs. Afib - diuresed, at baseline. 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 Patient arrived to the hospital with hypercapnea. Patiient is also on home oxygen. Patient will benefit from BIPAP device as he is clearly unable to remove CO2 on his own. VBG C02 showed: a level of 83. Will start BIPAP at night: 12/6 at RR 12. As above (3) Hypoxia: Remains on 2L NC - Blood cultures pending - as he does not have productive cough, WBC chronically elevated,and PCT 0.13 will hold on antibiotics at this time - As above multiple underlying etiologies. (4) CHF (congestive heart failure): Acute on chronic decompensated heart failure - secondary to fluid overload and RV HTN- disures as above - CPAP as above - Monitor effectiveness of treatment (5) Hypertension: Controlled - Continue Lasix - Continue BB (6) Atrial fibrillation: Rate controlled - CHADS vasc 3 - Daughter reports PCP stopping his Eliquis and he has not been taking (7) COVID-19: As above (8) DM II (diabetes mellitus, type II), controlled: Discontinue Metformin - Aspart sliding scale - May need basal insulin on board (9) Insomnia: improved with paroxetine and melatonin. (10) Depression: Patient was on mirtazapine. Will transition to paraoxetine as patient is having difficulty sleeping. Patient had a good night's sleep the night before. Will slowly taper off mirtazapine. Will decrease mirtazapine to 7.5 mg Total Time Total Time Spent Total Time Spent (In Minutes): 32 Discharge Plan Discharge Items Patient Disposition: Home - Home Health Services Reason For Visit: DYSPNEA Discharge Diagnosis: Dyspnea Activity: Resume your previous activity Non-emergency contact: Primary Care Provider Call non-emergency contact if: you have any medication questions Follow-up/Referrals: Hayden Baird [Primary Care Provider] - (PLEASE CALL YOUR PRIMARY CARE PHYSICIAN TO SCHEDULE A DISCHARGE FOLLOW-UP APPOINTMENT WITHIN 7-10 DAYS.) Diet: Carb Consistent or DM2 Addtl Attending Provider Instructions: You have been hospitalized for an acute medical problem. During your stay at [facility], we have made an effort to correct the problem that brought you to the hospital while keeping you as comfortable as possible. Medications were used to bring your condition under control and your discharge instructions will include directions for any medications you should take after leaving the hospital. Please make sure you see your Primary Care Provider as part of your follow up plan. After having a long discussion with Valentine, it appears you have been having issues with memory and insomnia since the Pandemic. This is also accompanied by depression. Since you have had COVID, it appears that you are having difficulty removing carbon dioxide from your body. your elevated carbon dioxide level likely is contributing to your confusion. We worked with case management to obtain a BIPAP machine for you to use at night. This should help with this. Also added paroxetine, to your regimen to help with your depression. This may also help with your insomnia. As you are taking mirtazpine, this may cause a rare reaction called serotonin syndrome. However, to help prevent this, we will be cutting back on your mirtazapine to 7.5 mg at bedtime. This will need to be tapered slowly. Here is some information on serotonin syndrome. Serotonin is a chemical your body produces that's needed for your nerve cells and brain to function. But too much serotonin causes signs and symptoms that can range from mild (shivering and diarrhea) to severe (muscle rigidity, fever and seizures). Severe serotonin syndrome can cause if not treated. If having shivering and diarrhea, please call PCP or return to the ER. We also added melatonin. Pending Studies at Discharge: No Stand-Alone Forms: My [facility] [employer] Workflow Management, Smoking Cessation Medications and DC Order Prescriptions: New paroxetine HCl 10 mg Tablet 10 mg PO Q24H Qty: 30 RF: 0 melatonin 3 mg Tablet 3 mg PO HS PRN (Reason: insomnia) Qty: 30 RF: 0 Continued furosemide 40 mg tablet 40 mg PO BID RF: 0 metformin 500 mg tablet 500 mg PO DAILY RF: 0 sennosides [senna] 8.6 mg Tablet 17.2 mg PO HS RF: 0 atorvastatin 20 mg tablet 20 mg PO DAILY RF: 0 thiamine HCl (vitamin B1) 100 mg Tablet 100 mg PO DAILY RF: 0 aspirin 81 mg Tablet,Delayed Release (Dr/Ec) 81 mg PO DAILY RF: 0 tamsulosin 0.4 mg capsule 0.4 mg PO DAILY RF: 0 nitroglycerin [Nitrostat] 0.4 mg Tablet, Sublingual 0.4 mg sublingual UD PRN (Reason: Chest Pain) RF: 0 docusate sodium [Colace] 100 mg Capsule 100 mg PO BID PRN (Reason: Constipation) RF: 0 allopurinol 300 mg tablet 300 mg PO DAILY RF: 0 finasteride 5 mg tablet 5 mg PO DAILY RF: 0 metoprolol tartrate 25 mg tablet 12.5 mg PO DAILY RF: 0 albuterol sulfate 2.5 mg /3 mL (0.083 %) solution for nebulization 2.5 mg inhalation Q4 PRN (Reason: Shortness Of Breath) RF: 0 Changed mirtazapine 7.5 mg tablet 7.5 mg PO HS 14 Days Qty: 14 RF: 0 Discontinued Eliquis 5 mg Tablet 5 mg PO BID Qty: 60 RF: 0 Discharge Orders: Discharge Order (Routine); Ordered 06/14/21 Ordered By: Trae Tatum Admission Data Admit Date/Time: 06/12/21 12:16 Attending Provider: Trae Tatum Admit Provider: Champ Kraft Primary Care Provider: Hayden Baird Other Providers: Champ Kraft Other Interventions: Discharge Summary Assessment (RN) Last Done: 06/14/21 14:34 Coding Level of Care Code D/C DAY MANAGEMENT >30 MINS Diagnoses Dyspnea R06.00 Hypercarbia R06.89 Hypoxia R09.02 CHF (congestive heart failure) I50.9 Hypertension I10 Atrial fibrillation I48.91 Atrial fibrillation type: unspecified COVID-19 U07.1 DM II (diabetes mellitus, type II), controlled E11.9 Insomnia G47.00 Depression F32.A
== END 2021-06-14 15:34 | disposition home health service (06) | DRG 291 ==
LOC: ED 08:36 → 2N 12:16 → SUATTDRO 12:16 → 2N 14:02

== ENCOUNTER 2021-08-01 09:11 | Inpatient (IN) ==
--- NOTE | 2021-08-01 09:32 | Emergency Department Note ---
Impression & Plan Hypoxia, CHF (congestive heart failure), SOB (shortness of breath), Precordial chest pain ED Provider Note NAME: JANNA CHI AGE: 89 SEX: M : 1930 ARRIVES VIA: Ambulance INFORMANT: [Patient][ems] ED PROVIDER(S): [Juvencio Mcbride MD] CHIEF COMPLAINT: Short of breath HISTORY OF PRESENT ILLNESS: The patient is an 89-year-old male who presents to the ED with 3 or 4 days of increasing shortness of breath. Today, when EMS arrived, his O2 saturation was in the 70s despite his typical amount of nasal cannula oxygen. The patient was placed on an oxygen mask and this improved his saturation. There has been no increased cough, no fever. He has had some chest pain that is fairly severe. The pain seems to present when he is feeling more short of breath. There has been no vomiting, no diarrhea, no abdominal pain. The patient does have a history of CO2 retention, V. tach, A. fib and CHF. He states that he feels that he is fluid overloaded. He has noticed that he is not making as much urine as he had been in the past. He thinks his diuretics are not working well enough. REVIEW OF SYSTEMS: See HPI for pertinent positives and negatives. A total of ten systems were reviewed and were otherwise negative. PMHx/PSHx: See Below SOCIAL HISTORY: See Below. PHYSICAL EXAM: GENERAL: Patient is in no acute distress. HEENT: No acute trauma, normocephalic atraumatic, mucous membranes moist, no nasal congestion, no scleral icterus. NECK: No stridor, no adenopathy, no meningismus, trachea is midline. LUNGS: Diminished breath sounds bilaterally, breath sounds are equal. No obvious respiratory distress. There are crackles at both bases. HEART: No murmurs, irregular rhythm, normal rate. ABDOMEN: Soft, nontender, bowel sounds positive, no hernias, no peritonitis. EXTREMITIES: No cyanosis, mild bilateral pedal edema, full range of motion of all the joints without pain or difficulty, no signs for acute trauma. NEUROLOGIC: Oriented x 3, no acute motor or sensory deficits, no focal weakness. SKIN: No rash, no jaundice, no diaphoresis. DIFFERENTIAL DIAGNOSIS: Reactive airway disease, COVID-19, influenza, pneumonia, pneumothorax, COPD, CHF, infection, cardiac ischemia, pulmonary embolism, bronchitis, musculoske letal, gastrointestinal, as well as other pathologies. EMERGENCY DEPARTMENT COURSE/PROCEDURES: ECG: Indication was shortness of breath. ECG shows what appears to be atrial fibrillation with multiple PVCs. There is significant baseline artifact. No ST elevation. The QTc is 496. Continuous Cardiac Monitoring: An order was placed for continuous cardiac monitoring. The monitor shows a rate of 115 with atrial fibrillation and PVCs. Critical Care Note: I have personally spent 43 minutes of critical care time in the direct management of this patient. This includes bedside care, interpretation of diagnostic studies, and testing, discussion with consultants, patient, and family members, and other required patient management activities. This 43 minutes is in excess of all separately billable procedures. MEDICAL DECISION MAKING: There is a significant leukocytosis consistent with his history of CLL. Patient is anemic but this is baseline looking back at previous testing. There was a normal platelet count. INR was slightly high at 1.2. ABG shows a respiratory acidosis with a PCO2 of 93. Renal panel testing shows a high CO2 consistent with the respiratory acidosis. No renal failure. BNP was elevated consistent with CHF and fluid overload. No concerning liver enzyme elevation. ECG shows atrial fibrillation, no obvious ischemia. Cardiac enzyme testing x1 is not consistent with acute cardiac injury. Influenza and Covid testing returned negative. Chest x-ray shows what appears to be CHF. The patient was aggressively managed. He received nitroglycerin paste, IV Lasix. He was placed on BiPAP. He was given a DuoNeb. The patient has shown some improvement with the above treatment. He does require a hospital stay and further care. I did speak with the patient and case management. The on-call hospitalist was consulted. Past Med/Surg History Medical History Atrial fibrillation BPH w urinary obs/LUTS CAD (coronary artery disease) CHF (congestive heart failure) Complicated bereavement Constipation Diabetes mellitus Gout Hyperlipidemia LDL goal <70 Hypertension Insomnia Presence of Watchman left atrial appendage closure device Social History Smoking Status: Former smoker Tobacco Type: Cigarettes Second Hand Exposure: No; Do You Dip or Chew Tobacco: No; Tobacco Cessation Education Requested by Patient: No Hx Alcohol Use: Yes Alcohol type: other Hx Substance Use: No Preferred Language: Frisian Communication Ability: Effective Block Operator Required: No Beliefs That Will Affect Care: None and Temple Temple Beliefs: Austrian Druze Current Living Situation: Family Current Living Situation Comment: W/ family support. Other Information That Helps Us Care for You: No Feels Safe at Home: Yes Safety Concerns: Feels Safe At This Time Assistive Devices: Denture - Upper, Glasses, Oxygen - Continuous and Walker Allergies Allergies Allergy/AdvReac Type Severity Reaction Status Date / Time No Known Allergies Allergy Verified 08/01/21 09:55 Home Meds Home Medications Medication Instructions Recorded Confirmed allopurinol 300 mg tablet 300 mg PO QAM 05/15/21 08/01/21 aspirin 81 mg tablet,delayed 81 mg PO QA 05/15/21 08/01/21 release atorvastatin 20 mg tablet 20 mg PO HS 05/15/21 08/01/21 docusate sodium 100 mg capsule 100 mg PO BID PRN 05/15/21 08/01/21 (Colace) finasteride 5 mg tablet 5 mg PO QA 05/15/21 08/01/21 furosemide 40 mg tablet 40 mg PO BID17 05/15/21 08/01/21 metformin 500 mg tablet 500 mg PO QA 05/15/21 08/01/21 metoprolol tartrate 25 mg tablet 12.5 mg PO [facility] 05/15/21 08/01/21 nitroglycerin 0.4 mg sublingual 0.4 mg SUBLINGUAL UD PRN 05/15/21 08/01/21 tablet (Nitrostat) sennosides 8.6 mg tablet (senna) 17.2 mg PO 05/15/21 08/01/21 tamsulosin 0.4 mg capsule 0.4 mg PO [facility] 05/15/21 08/01/21 thiamine HCl (vitamin B1) 100 mg 100 mg PO QA 05/15/21 08/01/21 tablet albuterol sulfate 2.5 mg INHALATION Q4 PRN 06/12/21 08/01/21 paroxetine HCl 10 mg tablet 10 mg PO 08/01/21 08/01/21 Previous Rx's Medication Instructions Recorded melatonin 3 mg tablet 3 mg PO HS PRN #30 tab 06/14/21 Results & Data (ED) Vital Signs Vital Signs - 24 hr 08/01/21 09:15 Temperature 36.8 C Temperature Source Oral Pulse Rate 115 H Pulse Rhythm Irregular Respiratory Rate 46 H Respiratory Effort / Characteristics Spontaneous Accessory Muscle Use Labored Short of Breath SOB on Exertion Respiratory Depth Retractive Respiratory Pattern Tachypnea Blood Pressure 137/112 H Blood Pressure Mean 120 Blood Pressure Position Sitting Pulse Oximetry 97 Oxygen Delivery Method Nasal Cannula Oxygen Flow Rate 6 Sepsis Recent Fever Within 48 Hours No Sepsis New/Unexplained Change in Mental Status No Sepsis Action Taken by Nursing Physician Notified Oxygen Flow Rate - Titration 4 Pulse Oximetry Post Tiitration 97 Home Medications Current Medication List: was personally reviewed by me Laboratory Data Attestation: I reviewed the patient's lab results. Result diagrams: 08/01/21 09:30 08/01/21 09:30 Lab Results 08/01/21 08/01/21 08/01/21 Range/Units 09:30 09:30 09:30 WBC 39.45 H* (4.8-10.8) K/uL RBC 3.16 L (4.7-6.1) M/uL Hgb 9.7 L (14.0-18.0) g/dL Hct 33.3 L (42-52) % MCV 105.4 H (80-100) fL MCH 30.7 (25-34) pg MCHC 29.1 L (32-36) g/dL RDW Std Deviation 66.7 H (36.4-46.3) fL RDW Coeff of Eladio 17.3 H (11.5-14.5) % Plt Count 164 (130-400) K/uL MPV 9.8 (7.4-10.4) fL Neutrophils % (Manual) 24.3 % Lymphocytes % (Manual) 74.8 % Monocytes % (Manual) 0.9 % Neutrophils # (Manual) 9.59 H (1.4-6.5) K/uL Total Absolute Neuts 9.59 H (1.4-6.5) K/uL Lymphocytes # (Manual) 29.51 H (1.2-3.4) K/uL Total Abs Lymphocytes 29.51 H (1.2-3.4) K/uL Monocytes # (Manual) 0.36 (0.11-0.59) K/uL PT 12.4 H (9.0-12.0) Seconds INR 1.2 H (0.9-1.1) APTT 25.9 (21.0-31.0) Seconds PTT Ratio 1.0 ABG pH (7.35-7.45) ABG pCO2 (35-46) mmHg ABG pO2 (80-95) mmHg ABG HCO3 (19-24) mmol/L ABG O2 Saturation (90-95) % ABG Base Excess (-9-1.8) mEq/L Coleman Test (Pos) Barometric Pressure mm/Hg Oxygen Given Sodium 141 (136-145) mmol/L Potassium 4.0 (3.5-5.1) mmol/L Chloride 95 L (98-107) mmol/L Carbon Dioxide 42 H* (21-32) mmol/L Anion Gap 4 (3-11) BUN 26 H (6-23) mg/dl Creatinine 1.06 (0.6-1.4) mg/dl Est Cr Clr Drug Dosing Not Reportable Est GFR ( Amer) 71.8 ml/min Est GFR (Non-Af Amer) 61.9 ml/min BUN/Creatinine Ratio 24.5 H (10-20) Glucose 178 H (70-99(Fasting)) mg/dl Calcium 9.3 (8.5-10.1) mg/dl Magnesium 1.7 (1.7-2.4) mg/dl Total Bilirubin 0.9 (0.2-1.0) mg/dl AST 14 (13-39) U/L ALT 10 (7-52) U/L Alkaline Phosphatase 85 (34-104) U/L Troponin I 0.03 (0-0.04) ng/ml B-Natriuretic Peptide (0-100) pg/ml Total Protein 6.9 (6.0-8.3) gm/dl Albumin 3.9 (3.4-5.0) gm/dl Globulin 3.0 (2.5-4.0) gm/dl Albumin/Globulin Ratio 1.3 (0.9-2) 08/01/21 08/01/21 Range/Units 09:56 09:56 WBC (4.8-10.8) K/uL RBC (4.7-6.1) M/uL Hgb (14.0-18.0) g/dL Hct (42-52) % MCV (80-100) fL MCH (25-34) pg MCHC (32-36) g/dL RDW Std Deviation (36.4-46.3) fL RDW Coeff of Eladio (11.5-14.5) % Plt Count (130-400) K/uL MPV (7.4-10.4) fL Neutrophils % (Manual) % Lymphocytes % (Manual) % Monocytes % (Manual) % Neutrophils # (Manual) (1.4-6.5) K/uL Total Absolute Neuts (1.4-6.5) K/uL Lymphocytes # (Manual) (1.2-3.4) K/uL Total Abs Lymphocytes (1.2-3.4) K/uL Monocytes # (Manual) (0.11-0.59) K/uL PT (9.0-12.0) Seconds INR (0.9-1.1) APTT (21.0-31.0) Seconds PTT Ratio ABG pH 7.28 L (7.35-7.45) ABG pCO2 93 H (35-46) mmHg ABG pO2 72 L (80-95) mmHg ABG HCO3 43 H (19-24) mmol/L ABG O2 Saturation 92.9 (90-95) % ABG Base Excess 13.5 H (-9-1.8) mEq/L Coleman Test Pos (Pos) Barometric Pressure 732.7 mm/Hg Oxygen Given 4L Sodium (136-145) mmol/L Potassium (3.5-5.1) mmol/L Chloride (98-107) mmol/L Carbon Dioxide (21-32) mmol/L Anion Gap (3-11) BUN (6-23) mg/dl Creatinine (0.6-1.4) mg/dl Est Cr Clr Drug Dosing Est GFR ( Amer) ml/min Est GFR (Non-Af Amer) ml/min BUN/Creatinine Ratio (10-20) Glucose (70-99(Fasting)) mg/dl Calcium (8.5-10.1) mg/dl Magnesium (1.7-2.4) mg/dl Total Bilirubin (0.2-1.0) mg/dl AST (13-39) U/L ALT (7-52) U/L Alkaline Phosphatase (34-104) U/L Troponin I (0-0.04) ng/ml B-Natriuretic Peptide 493 H (0-100) pg/ml Total Protein (6.0-8.3) gm/dl Albumin (3.4-5.0) gm/dl Globulin (2.5-4.0) gm/dl Albumin/Globulin Ratio (0.9-2) Administered Medications Albuterol (Albut/Ipratrop 3mg/0.5mg Neb 3 Ml Vial) 3 ml NEB QIDR YADI; Protocol Stop: 08/31/21 11:29 Last Admin: 08/01/21 12:06 Dose: Not Given Documented by: [id number] Azithromycin 500 mg/ Dextrose 255 mls @ 125 mls/hr IV DAILY YADI Stop: 08/08/21 10:59 Last Infusion: 08/01/21 14:20 Dose: 0 mls/hr Documented by: [id number] Admin: 08/01/21 11:57 Dose: 125 mls/hr Documented by: [id number] Methylprednisolone 40 mg/ (Syringe) 0.64 mls @ 1.5 mls/min IV Q8H YADI Stop: 08/31/21 13:59 Last Admin: 08/01/21 13:10 Dose: 1.5 mls/min Documented by: [id number] Paroxetine HCl (Paroxetine Hcl 10 Mg Tab) 10 mg PO Q24H YADI Stop: 08/31/21 12:59 Last Admin: 08/01/21 14:21 Dose: Not Given Documented by: [id number] Discontinued Medications Albuterol (Albut/Ipratrop 3mg/0.5mg Neb 3 Ml Vial) 3 ml NEB NOW STA; Protocol Stop: 08/01/21 10:15 Last Admin: 08/01/21 10:35 Dose: 3 ml Documented by: [id number] Furosemide (Furosemide 40 Mg/4 Ml Vial) 80 mg IV ONE ONE Stop: 08/01/21 09:58 Last Admin: 08/01/21 10:20 Dose: 80 mg Documented by: [id number] Insulin Glargine (Insulin Glargine Solostar 100 Units/Ml 3 Ml Pen) 30 units SC NOW ONE; Protocol Stop: 08/01/21 13:01 Last Admin: 08/01/21 13:10 Dose: 30 units Documented by: [id number] Cosigned by: [id number] Nitroglycerin (Nitroglycerin 2% Ointment 30gm Tube) 2 inch EXT NOW STA Stop: 08/01/21 09:58 Last Admin: 08/01/21 10:20 Dose: 2 inch Documented by: [id number] Imaging Data Radiologist's Impression: Chest X-Ray 08/01/21 09:27 XR chest 1V portable CLINICAL HISTORY: SOB TECHNIQUE: Single frontal radiograph of the chest was obtained. Comparison: Comparison is made to chest one view 06/12/[address] chest 07/26/2021 FINDINGS: Median sternotomy wires are seen including fractured superiormost wire. Cardiomegaly is noted. Multifocal airspace opacities are seen. Likely bilateral pleural effusions. No pneumothorax is seen. A gas bubble in the left hemithorax likely represents gastric contents due to elevation of the left hemidiaphragm. IMPRESSION: Multifocal airspace opacities may represent atelectasis, pneumonia, and/or aspiration. ACT 112: Negative or not required by law. Electronically signed by: Syed Coley M.D. 08/01/2021 10:03 AM Discharge Plan Visit Data Chief Complaint: Shortness of Breath/Dyspnea ED Provider: Juvencio Mcbride Discharge Problem: Hypoxia, CHF (congestive heart failure), SOB (shortness of breath), Precordial chest pain Patient Disposition: Admitted As Inpatient Condition: Fair Discharge Instructions Interventions: ED Discharge Assessment Last Done: 08/01/21 10:52
[2021-08-01 09:56] LABS: Hematocrit (blood only) 33.3 % (42-52); Hemoglobin 9.7 g/dL (14.0-18.0); Mean Corpuscular Hemoglobin 30.7 pg (25-34); Mean Corpuscular Hgb Conc 29.1 g/dL (32-36); Mean Corpuscular Volume 105.4 fL (80-100); Mean Platelet Volume 9.8 fL (7.4-10.4); Platelet Count 164 K/uL (130-400); RDW Coefficient of Variation 17.3 % (11.5-14.5); RDW Standard Deviation 66.7 fL (36.4-46.3); Red Blood Count 3.16 M/uL (4.7-6.1); White Blood Count 39.45 K/uL (4.8-10.8)
[2021-08-01 09:57] LABS: INR 1.2 (0.9-1.1); Partial Thromboplastin Time 25.9 Seconds (21.0-31.0); Prothrombin Time 12.4 Seconds (9.0-12.0)
[2021-08-01] MEDS ORDERED: FUROSEMIDE 40 MG/4 ML VIAL IV ONE (09:57)
[2021-08-01] MEDS ORDERED: NITROGLYCERIN 2% OINTMENT 30GM TUBE EXT STA (09:57)
[2021-08-01 10:04] LABS: ALC (manual) 29.51 K/uL (1.2-3.4); ANC (manual) 9.59 K/uL (1.4-6.5); Lymphocytes # (manual) 29.51 K/uL (1.2-3.4); Lymphocytes % (manual) 74.8 %; Monocytes # (manual) 0.36 K/uL (0.11-0.59); Monocytes % (manual) 0.9 %; Neutrophils # (manual) 9.59 K/uL (1.4-6.5); Neutrophils % (manual) 24.3 %
--- NOTE | 2021-08-01 10:04 | XRay Report ---
XR chest 1V portable CLINICAL HISTORY: SOB TECHNIQUE: Single frontal radiograph of the chest was obtained. Comparison: Comparison is made to chest one view 06/12/[address] chest 07/26/2021 FINDINGS: Median sternotomy wires are seen including fractured superiormost wire. Cardiomegaly is noted. Multif ocal airspace opacities are seen. Likely bilateral pleural effusions. No pneumothorax is seen. A gas bubble in the left hemithorax likely represents gastric contents due to elevation of the left hemidia phragm. IMPRESSION: Multifocal airspace opacities may represent atelectasis, pneumonia, and/or aspiration. ACT 112: Negative or not required by law. Electronically signed by: Syed Coley M.D. 08/01/2021 10:03 AM
[2021-08-01 10:13] LABS: Troponin I 0.03 ng/ml (0-0.04)
[2021-08-01] MEDS ORDERED: ALBUT/IPRATROP 3MG/0.5MG NEB 3 ML VIAL NEB STA (10:14)
[2021-08-01 10:16] LABS: Allen Test Pos (Pos); Base Excess ABG 13.5 mEq/L (-9-1.8); HCO3 ABG 43 mmol/L (19-24); Oxygen Saturation ABG 92.9 % (90-95); PCO2 ABG 93 mmHg (35-46); PO2 ABG 72 mmHg (80-95); pH ABG 7.28 (7.35-7.45)
[2021-08-01] MEDS ORDERED: METOPROLOL TARTRATE 1 MG/ML VIAL IV PRN (10:23)
[2021-08-01 10:33] LABS: Alanine Aminotransferase 10 U/L (7-52); Albumin Globulin Ratio 1.3 (0.9-2); Albumin Level 3.9 gm/dl (3.4-5.0); Alkaline Phosphatase 85 U/L (34-104); Anion Gap 4 (3-11); Aspartate Aminotransferase 14 U/L (13-39); BUN Creatinine Ratio 24.5 (10-20); Bilirubin,Total 0.9 mg/dl (0.2-1.0); Blood Urea Nitrogen 26 mg/dl (6-23); Calcium 9.3 mg/dl (8.5-10.1); Carbon Dioxide 42 mmol/L (21-32); Chloride 95 mmol/L (98-107); Est GFR (African American) 71.8 ml/min; Est GFR (Non-African American) 61.9 ml/min; Glucose 178 mg/dl (70-99(Fasting)); Magnesium 1.7 mg/dl (1.7-2.4); Sodium 141 mmol/L (136-145); Total Protein 6.9 gm/dl (6.0-8.3)
[2021-08-01 11:03] LABS: Influenza A virus by PCR Negative (Negative); Influenza B virus by PCR Negative (Negative)
--- NOTE | 2021-08-01 11:10 | History & Physical Report ---
Date of Service August 01, 2021 Assessment & Plan (1) Acute and chronic respiratory failure: Plan: Patient presents with fairly abrupt respiratory failure. Not wearing BiPAP at home due to disliking it. Found to be hypoxic and hypercarbic in the emergency department with respiratory acidosis appropriate for his hypercarbia. Rescued with BiPAP breathing. Patient also was given a dose of additional diuretic given history of systolic heart failure therefore there can also be a component of acute systolic heart failure. Patient also has pulmonary hypertension with pulmonary systolic pressure estimated to be 50 For his history of chronic lung disease and suggestion of COPD the patient's given Solu-Medrol 40 every 8 albuterol and ipratropium nebulized 4 times daily For his hypercarbic respiratory failure he will be maintained on BiPAP therapy The outside possibility of bronchitis azithromycin is administered Acute systolic heart failure Lasix 80 IV was given he will be maintained on 40 IV twice daily. His last echocardiogram was in May. Portable chest x-ray does show slightly enlarged cardiac silhouette would be repeating echocardiogram. Initial troponin unremarkable we will trend troponins after admission (2) Atrial fibrillation: Plan: Patient with rate controlled atrial fibrillation with metoprolol. Patient had a watchman's procedure in [facility] and was not on chronic anticoagulation. Rate seem to be controlled in the emergency department (3) Diabetes mellitus: Plan: With regard to uncontrolled diabetes likely will be worsened by steroid administration will initially start with sliding scale insulin holding Metformin we will have a glycemic management consultation to determine if basal insulin should be warranted. (4) Chronic lymphocytic leukemia: Plan: Patient has had a persistent elevation of his white blood cell count which is lymphocyte predominant studies place him at risk for opportunistic infections his leukocytosis is within his typical range (5) Depression: Plan: Patient has seen our psychiatric liaison's in the past and they recommended mirtazapine and melatonin. However he was changed to Paxil. Given the fact that he continues have sundowning behavior will revert back to the mirtazapine and melatonin with backup Zyprexa or Haldol if needed to control his behavior at night here in the hospital. (6) DVT prophylaxis: Plan: PT prevention is heparin subcu twice daily. I had CODE STATUS discussion with the daughter at the bedside she understands that if he were to prove progressed to needing ventilation that would be a poor prognostic sign she also understands at some of the issues that preserved presenting to the hospital could be progression of pulmonary fibrotic change from his previous Covid infection however at this time she needs to confer with her brother before making him DNR thus he will be a full code at this time History of Present Illness Primary Care Provider: Kendell Posada DO Mr. Moncada is an 89-year-old male discharge in June after COPD exacerbation also treated in the fall for Covid pneumonia patient represents an acute respiratory distress with tachypnea and found to be hypercarbic on ABG. Patient was prescribed BiPAP on his last admission however his daughter states he is having challenges wearing it at home. Patient also suffers from frequent nocturnal restlessness and then sleeps throughout the day. Patient's had no infectious symptoms such as fever or productive cough. Patient's daughter states he has taken all of his medications typically has not had any increasing salty foods has not complained of any chest pain or palpitations. Daughter also states that at home he had challenges with controlling his blood glucoses and he only takes Metformin on a typical day. in the ER the patient is extremely hard of hearing he does have some memory impairment and history was obtained through his daughter who is his constant caregiver. He was retested in the ER and found to be Covid negative. His chest x-ray shows groundglass opacities which could be reminiscent of his previous Covid infection or perhaps mild fluid overload Allergies Allergy/AdvReac Type Severity Reaction Status Date / Time No Known Allergies Allergy Verified 08/01/21 09:55 Home Medications Medication Instructions Recorded Confirmed Type allopurinol 300 mg tablet 300 mg PO QAM 05/15/21 08/01/21 History aspirin 81 mg tablet,delayed 81 mg PO QAM 05/15/21 08/01/21 History release atorvastatin 20 mg tablet 20 mg PO HS 05/15/21 08/01/21 History docusate sodium 100 mg capsule 100 mg PO BID PRN 05/15/21 08/01/21 History (Colace) finasteride 5 mg tablet 5 mg PO QAM 05/15/21 08/01/21 History furosemide 40 mg tablet 40 mg PO BID17 05/15/21 08/01/21 History metformin 500 mg tablet 500 mg PO QAM 05/15/21 08/01/21 History metoprolol tartrate 25 mg tablet 12.5 mg PO QAM 05/15/21 08/01/21 History nitroglycerin 0.4 mg sublingual 0.4 mg SUBLINGUAL UD PRN 05/15/21 08/01/21 History tablet (Nitrostat) sennosides 8.6 mg tablet (senna) 17.2 mg PO HS 05/15/21 08/01/21 History tamsulosin 0.4 mg capsule 0.4 mg PO QAM 05/15/21 08/01/21 History thiamine HCl (vitamin B1) 100 mg 100 mg PO QAM 05/15/21 08/01/21 History tablet albuterol sulfate 2.5 mg INHALATION Q4 PRN 06/12/21 08/01/21 History melatonin 3 mg tablet 3 mg PO HS PRN #30 tab 06/14/21 08/01/21 Rx paroxetine HCl 10 mg tablet 10 mg PO HS 08/01/21 08/01/21 History Past Med/Surg History Medical History Atrial fibrillation BPH w urinary obs/LUTS CAD (coronary artery disease) CHF (congestive heart failure) Complicated bereavement Constipation Diabetes mellitus Gout Hyperlipidemia LDL goal <70 Hypertension Insomnia Presence of Watchman left atrial appendage closure device Social History Smoking Status: Former smoker Tobacco Type: Cigarettes Second Hand Exposure: No; Do You Dip or Chew Tobacco: No; Tobacco Cessation Education Requested by Patient: No Hx Alcohol Use: Yes Alcohol type: other Hx Substance Use: No Preferred Language: Maori Communication Ability: Effective Continuity Writer Required: No Beliefs That Will Affect Care: None and Muslim Muslim Beliefs: Croatian Buddhism marital status: / Current Living Situation: Family Current Living Situation Comment: W/ family support. Other Information That Helps Us Care for You: No Feels Safe at Home: Yes Safety Concerns: Feels Safe At This Time Assistive Devices: Cane, Oxygen - Continuous and Walker Review of Systems Review of Systems: Moderate respiratory distress and fatigue no headache, no visual changes no speech or swallowing issues no chest pain, pressure or palpitations Significant shortness of breath but no coughing no abdominal pain, nausea or vomiting, diarrhea or constipation no dysuria, hematuria or frequency no focal joint pain or swelling no back pain, CVA tenderness or radicular pain no bruising, bleeding or rashes no focal signs of weakness or numbness or altered sensation does have memory impairment and hearing loss He has begun treatment for depression Physical Exam Physical Exam: The patient appeared well nourished and normally developed. He was resting on BiPAP he did respond to loud voice he did not look to be in distress however prior to BiPAP he was in respiratory distress with tachypnea Vital signs as documented. Head exam is normocephalic atraumatic Neck is without JVD, thyromegaly, or carotid bruits. Lungs are coarse breath sounds bilaterally good air movement on BiPAP no focal losses with exception of some dullness at the left base Cardiac exam, Rhythm is regular.. Systolic ejection murmur is heard at the base Abdominal exam reveals normal bowel sounds, soft non tender, no masses Extremities are nonedematous and both pedal pulses are present Neurologic exam is alert and wakens to stimulation and falls easily back to sleep Skin is without bruises or rashes Psychologically is with concerns for depression.. Results & Data Results & [facility] ([facility]) Vital Signs (Past 12 Hours) Vital Signs Temp Pulse Pulse Resp BP BP Pulse Ox 08/01/21 10:52 91 H 26 H 143/73 H 97 08/01/21 10:35 83 84 27 H 94 08/01/21 10:30 91 H 26 H 143/73 H 97 08/01/21 09:15 98.2 F 115 H 46 H 137/112 H 97 Diagnostic Findings Chest X-Ray 08/01/21 09:27 XR chest 1V portable CLINICAL HISTORY: SOB TECHNIQUE: Single frontal radiograph of the chest was obtained. Comparison: Comparison is made to chest one view 06/12/[address] chest 07/26/2021 FINDINGS: Median sternotomy wires are seen including fractured superiormost wire. Cardiomegaly is noted. Multifocal airspace opacities are seen. Likely bilateral pleural effusions. No pneumothorax is seen. A gas bubble in the left hemithorax likely represents gastric contents due to elevation of the left hemidiaphragm. IMPRESSION: Multifocal airspace opacities may represent atelectasis, pneumonia, and/or aspiration. ACT 112: Negative or not required by law. Electronically signed by: Syed Coley M.D. 08/01/2021 10:03 AM Code Status & VTE Plan VTE Prophylaxis Plan VTE Prophylaxis will be ordered: Yes PG Care Time/CCT Total # of Minutes Spent Total Time Spent with Patient: Total time spent is greater than 50% in coordination of care (as documented) at patient's floor/unit and/or counseling patient: Coding Level of Care Code 15536 Initial Inpt Care Lvl 3 Diagnoses Atrial fibrillation I48.91 Atrial fibrillation type: unspecified Diabetes mellitus E11.9 Acute and chronic respiratory failure J96.20 Chronic lymphocytic leukemia C91.10 Depression F32.A DVT prophylaxis Z29.9 (1) Atrial fibrillation Atrial fibrillation type: unspecified Qualified Code(s): I48.91 - Unspecified atrial fibrillation
[2021-08-01] MEDS ORDERED: ALUMINUM/MAGNESIUM SUSP 30 ML UDC PO PRN (11:30)
[2021-08-01] MEDS ORDERED: ACETAMINOPHEN 325 MG TAB PO PRN (11:30)
[2021-08-01] MEDS ORDERED: MELATONIN 3 MG TAB PO PRN (11:30)
[2021-08-01] MEDS ORDERED: HALOPERIDOL LACTATE 5 MG/ML 1 ML VIAL IM PRN (11:30)
[2021-08-01] MEDS ORDERED: DEXTROSE 50% 50 ML SYRINGE IV PRN (11:30)
[2021-08-01] MEDS ORDERED: GLUCOSE 10 TABS/TUBE PO PRN (11:30)
[2021-08-01] MEDS ORDERED: CARBOHYDRATES FOR HYPOGLYCEMIA PO PRN (11:30)
[2021-08-01] MEDS ORDERED: DOCUSATE SODIUM 100 MG CAP PO PRN (11:30)
[2021-08-01] MEDS ORDERED: NITROGLYCERIN SL 0.4 MG/TAB TAB SL PRN (11:30)
[2021-08-01] MEDS ORDERED: PHARMACY GLYCEMIC MGMT CONSULT PRN (11:30)
[2021-08-01] MEDS ORDERED: GLUCOSE 40% GEL 15 GM TUBE PO PRN (11:30)
[2021-08-01] MEDS ORDERED: GLUCAGON FOR INJ 1 MG VIAL SQ PRN (11:30)
[2021-08-01] MEDS: AZITHROMYCIN 500 MG in DEXTROSE 5% 250 ML IV SCH (11:57)
[2021-08-01] MEDS: ALBUT/IPRATROP 3MG/0.5MG NEB 3 ML VIAL NEB SCH ×3 (12:06→19:55)
[2021-08-01] MEDS ORDERED: OLANZapine ZYDIS 5 MG ORALLY DIS. TAB PO PRN (12:30)
[2021-08-01] MEDS ORDERED: INSULIN GLARGINE SOLOSTAR 100 UNITS/ML 3 ML PEN SC ONE (13:00)
--- NOTE | 2021-08-01 13:05 | Pharmacy Report ---
Pharmacy Glycemic Short Note 2 - Date of Service August 01, 2021 - Glycemic Short BSG Results (Last 24 hours): 08/01/21 08/01/21 09:30 11:24 Glucose 178 H POC Glucose 171 H OUTPATIENT ANTIDIABETIC REGIMEN: * Metformin * HbA1c ordered for 08/02/21 ASSESSMENT: * 89 yo M with T2DM admitted 08/01 w respiratory failure / ?COPD exacerbation and initiated on methylprednisolone 40 mg IV q8h. Pharmacy consulted for glycemic management * Will initiate Lantus due to steroids and BSG elevation (even prior to the start of steroids). Lantus 0.3 units/kg initially * Will initiate Novolog ACHS at slightly looser than weight-based severe stress estimate (due to steroids) PLAN FOR INPATIENT GLYCEMIC CONTROL: * Hold outpatient metformin * Basal insulin * Lantus 30 units SQ x1 * Bolus insulin * NovoLog per scale ACHS or Q6hrs while NPO * Goal Range: Low 110 mg/dL - High 140 mg/dL * Correction Factor: 20 mg/dL/unit * Nutritional / Prandial insulin per carb ratio of 1 unit per 6 grams CHO consumed PLAN FOR DISCHARGE: * tbd
[2021-08-01] MEDS: methylPREDNISolone 40 MG in SYRINGE 0 ML IV SCH ×2 (13:10→20:48)
--- NOTE | 2021-08-01 13:27 | Electrocardiogram Report ---
Test Reason : Blood Pressure : / mmHG Vent. Rate : 106 BPM Atrial Rate : 078 BPM P-R Int : 000 ms QRS Dur : 092 ms QT Int : 374 ms P-R-T Axes : 000 020 174 degrees QTc Int : 496 ms Atrial fibrillation with premature ventricular or aberrantly conducted complexes Nonspecific ST and T wave abnormality Abnormal ECG When compared with ECG of 12-JUN-2021 08:49, Non-specific change in ST segment in Inferior leads ST now depressed in Anterolateral leads T wave inversion now evident in Lateral leads QT has lengthened Confirmed by Reid Ramires ([id number]) on 08/01/2021 1:27:00 PM Referred By: REFERRED SELF Confirmed By:Reid Ramires
[2021-08-01] MEDS: PARoxetine HCL 10 MG TAB PO SCH (14:21)
--- NOTE | 2021-08-01 14:21 | XCELERA ---
[id number]
[2021-08-01] MEDS: INSULIN ASPART PER UNIT SC SCH ×2 (17:02→20:45)
[2021-08-01] MEDS: SENNA 8.6 MG TAB PO SCH (20:46)
[2021-08-01] MEDS: MIRTAZAPINE SOLTAB 15 MG PO SCH (20:46)
[2021-08-01] MEDS: FUROSEMIDE 40 MG/4 ML VIAL IV SCH (20:48)
[2021-08-02 06:47] LABS: BUN Creatinine Ratio 27.8 (10-20); Calcium 8.1 mg/dl (8.5-10.1); Creatinine Clr Calc Pharmacy 49.4 ml/min; Est GFR (Non-African American) 56.1 ml/min; Magnesium 1.8 mg/dl (1.7-2.4); Potassium 3.9 mmol/L (3.5-5.1)
[2021-08-02] MEDS: methylPREDNISolone 40 MG in SYRINGE 0 ML IV SCH ×3 (06:47→21:40)
[2021-08-02] MEDS: ALBUT/IPRATROP 3MG/0.5MG NEB 3 ML VIAL NEB SCH ×4 (07:05→19:46)
[2021-08-02 07:37] LABS: Estimated Average Glucose 146 mg/dl; Hemoglobin A1C 6.7 % (4.5-5.6)
[2021-08-02] MEDS: METOPROLOL TARTRATE 25 MG TAB PO SCH (08:08)
[2021-08-02] MEDS: INSULIN ASPART PER UNIT SC SCH ×4 (08:09→20:38)
[2021-08-02] MEDS: THIAMINE HCL 100 MG TAB PO SCH (08:09)
[2021-08-02] MEDS: ASPIRIN 81 MG ECTAB PO SCH (08:09)
[2021-08-02] MEDS: AZITHROMYCIN 500 MG in DEXTROSE 5% 250 ML IV SCH (08:09)
[2021-08-02] MEDS: FINASTERIDE 5 MG TAB PO SCH (08:09)
[2021-08-02] MEDS: TAMSULOSIN HCL 0.4 MG CAP PO SCH (08:10)
[2021-08-02] MEDS: INSULIN GLARGINE SOLOSTAR 100 UNITS/ML 3 ML PEN SC SCH ×2 (08:10→20:37)
--- NOTE | 2021-08-02 08:22 | Hospitalist Progress Note ---
Date of Service August 02, 2021 Assessment & Plan (1) Acute and chronic respiratory failure: Plan: Patient presents with fairly abrupt respiratory failure. Not wearing BiPAP at home due to disliking it. Found to be hypoxic and hypercarbic in the emergency department with respiratory acidosis appropriate for his hypercarbia. Rescued with BiPAP breathing. Patient also was given a dose of additional diuretic given history of systolic heart failure therefore there can also be a component of acute systolic heart failure. Patient also has pulmonary hypertension with pulmonary systolic pressure estimated to be 50 For his history of chronic lung disease and suggestion of COPD the patient's continues on Solu-Medrol 40 every 8 albuterol and ipratropium nebulized 4 times daily For his hypercarbic respiratory failure he will be maintained on BiPAP therapy at bedtime and encouraged to use his BiPAP at home The outside possibility of bronchitis azithromycin is administered Will check CT scan of the chest and have pulmonary consultation maximize his treatment to try to avoid readmission. Acute systolic heart failure Lasix 80 IV was given he will be maintained on 40 IV daily. His last echocardiogram was in May. Portable chest x-ray does show slightly enlarged cardiac silhouette, repeating echocardiogram shows normal ejection fraction with concentric LVH will reduce diuretic therapy Initial troponin trend unremarkable after admission (2) Atrial fibrillation: Plan: Patient with rate controlled atrial fibrillation with metoprolol. Patient had a watchman's procedure in [facility] and was not on chronic anticoagulation. Rate seem to be controlled in the emergency department (3) Diabetes mellitus: Plan: With regard to uncontrolled diabetes likely will be worsened by steroid administration will initially start with sliding scale insulin holding Metformin we will have a glycemic management consultation to determine if basal insulin should be warranted. (4) Chronic lymphocytic leukemia: Plan: Patient has had a persistent elevation of his white blood cell count which is lymphocyte predominant studies place him at risk for opportunistic infections his leukocytosis is within his typical range (5) Depression: Plan: Patient has seen our psychiatric liaison's in the past and they recommended mirtazapine and melatonin. However he was changed to Paxil. Given the fact that he continues have sundowning behavior will revert back to the mirtazapine and melatonin with backup Haldol if needed to control his behavior at night here in the hospital. (6) DVT prophylaxis: Plan: PT prevention is heparin subcu twice daily. 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 Long discussion with his daughter who states that he does have a BiPAP machine at home. He did have a Noncon CT scan last time he was here we will do a CT scan with contrast to rule out embolic disease as part of this and also to evaluate his parenchyma as it looks fairly thickened which could be a post Covid lung change. To this end we will continue steroids and have pulmonary evaluate him after CT scans performed Review of Systems Review of Systems: Moderate respiratory distress and fatigue no headache, no visual changes no speech or swallowing issues no chest pain, pressure or palpitations Significant shortness of breath but no coughing no abdominal pain, nausea or vomiting, diarrhea or constipation no dysuria, hematuria or frequency no focal joint pain or swelling no back pain, CVA tenderness or radicular pain no bruising, bleeding or rashes no focal signs of weakness or numbness or altered sensation does have memory impairment and hearing loss He has begun treatment for depression Physical Exam Physical Exam: The patient appeared well nourished and normally developed. He was resting on BiPAP he did respond to loud voice he did not look to be in distress however prior to BiPAP he was in respiratory distress with tachypnea Vital signs as documented. Head exam is normocephalic atraumatic Neck is without JVD, thyromegaly, or carotid bruits. Lungs are coarse breath sounds bilaterally good air movement on BiPAP no focal losses with exception of some dullness at the left base Cardiac exam, Rhythm is regular.. Systolic ejection murmur is heard at the base Abdominal exam reveals normal bowel sounds, soft non tender, no masses Extremities are nonedematous and both pedal pulses are present Neurologic exam is alert and wakens to stimulation and falls easily back to sleep Skin is without bruises or rashes Psychologically is with concerns for depression.. Results & Data Results & Data ([facility]) Vital Signs (Past 12 Hours) Vital Signs Temp Pulse Pulse Resp BP BP Pulse Ox 08/02/21 07:54 98.6 F 73 22 125/60 90 08/02/21 07:05 58 L 22 93 08/02/21 04:00 68 12 90 08/02/21 03:25 97.7 F 60 18 123/58 L 90 08/02/21 00:02 128/49 L 08/01/21 23:17 99.0 F 81 71 21 135/50 L 135/50 L 92 08/01/21 23:00 89 27 H 93 08/01/21 22:19 67 28 H 91 PG Care Time/CCT Total # of Minutes Spent Total Time Spent with Patient: Total time spent is greater than 50% in coordination of care (as documented) at patient's floor/unit and/or counseling patient: Coding Level of Care Code 90505 Subseq Hosp Care Lvl 3 Diagnoses Acute and chronic respiratory failure J96.20 Atrial fibrillation I48.91 Atrial fibrillation type: unspecified Diabetes mellitus E11.9 Chronic lymphocytic leukemia C91.10 Depression F32.A DVT prophylaxis Z29.9 (1) Atrial fibrillation Atrial fibrillation type: unspecified Qualified Code(s): I48.91 - Unspecified atrial fibrillation
[2021-08-02] MEDS: FUROSEMIDE 40 MG/4 ML VIAL IV SCH ×2 (09:43→20:35)
--- NOTE | 2021-08-02 10:30 | Pharmacy Report ---
Pharmacy Glycemic Short Note 2 - Date of Service August 02, 2021 - Glycemic Short BSG Results (Last 24 hours): 08/01/21 08/01/21 08/01/21 09:30 11:24 16:15 Glucose 178 H POC Glucose 171 H 172 H 08/01/21 08/02/21 08/02/21 20:20 05:47 07:25 Glucose 121 H POC Glucose 165 H 141 H OUTPATIENT ANTIDIABETIC REGIMEN: * Metformin * HbA1c 6.7% on 08/02/21 ASSESSMENT: 08/02 * Stressors stable - remains on same dose of methylprednisolone * AM fasting BSG in goal range. Will continue Lantus but split BID and scale down if BSG's trend down * Novolog regimen OK for now - only one post-prandial BSG to assess at this time 08/01 * 89 yo M with T2DM admitted 08/01 w respiratory failure / ?COPD exacerbation and initiated on methylprednisolone 40 mg IV q8h. Pharmacy consulted for glycemic management * Will initiate Lantus due to steroids and BSG elevation (even prior to the start of steroids). Lantus 0.3 units/kg initially * Will initiate Novolog ACHS at slightly looser than weight-based severe stress estimate (due to steroids) PLAN FOR INPATIENT GLYCEMIC CONTROL: * Hold outpatient metformin * Basal insulin * Lantus 10-15 units BID, depending on BSG * Bolus insulin * NovoLog per scale ACHS or Q6hrs while NPO * Goal Range: Low 110 mg/dL - High 140 mg/dL * Correction Factor: 20 mg/dL/unit * Nutritional / Prandial insulin per carb ratio of 1 unit per 6 grams CHO consumed PLAN FOR DISCHARGE: * Continue metformin, assuming no contraindications at discharge
[2021-08-02] MEDS: PARoxetine HCL 10 MG TAB PO SCH (13:41)
[2021-08-02] MEDS ORDERED: OPTIRAY 320 125ml IV ONE (18:24)
--- NOTE | 2021-08-02 18:51 | CT Scan Report ---
CT ANGIOGRAM OF THE CHEST CLINICAL HISTORY: Dyspnea. COMPARISON STUDY: Chest CT dated 07/26/2021. TECHNIQUE: Following the IV administration of 120 cc of Optiray 320, CT angiogram of the chest was pe rformed from the upper abdomen to the thoracic inlet utilizing the pulmonary embolus protocol. Images are reviewed in the axial, sagittal, and coronal planes. 3-D MIPS images are created and assessed. I V contrast was administered without complication. A dose lowering technique was utilized adhering to the principles of ALARA. The examination is compromised by motion artifact. CT DOSE: 576.03 mGy.cm FINDINGS: Thyroid: Imaged portions of the thyroid gland are normal in size and attenuation. Thoracic aorta: There is atherosclerotic calcification of the thoracic aorta, which normal in caliber and demonstrates bovine variant arch anatomy. No dissection is seen. Pulmonary vasculature: The main pulmonary arteries are dilated suggesting pulmonary artery hypertensi on. There are no filling defects identified in main, lobar, or proximal segmental pulmonary branches to suggest pulmonary embolus. Evaluation of the segmental and subsegmental branches is compromised by motion artifact. Heart: The patient is status post midline sternotomy. The heart is enlarged and without pericardial e ffusion. A device is noted in the left atrial appendage. There is atrial septal closure device, and e vidence of previous mitral valve surgery. The coronary arteries are densely calcified. Lungs and pleural spaces: Evaluation of the lung parenchyma is severely degraded by motion artifact. There are small to moderate pleural effusions with dependent consolidation. Patchy ground glass opaci ties are seen throughout both lungs. The trachea and central airways appear clear. Mediastinum: There is no mediastinal lymphadenopathy. Vicki: Clear. Axillae: There is no axillary lymphadenopathy. Upper abdomen: The spleen appears enlarged. Partially visualized upper abdominal viscera is otherwise grossly unremarkable. Skeletal structures: The skeletal structures are osteopenic. Numerous mild compression deformities ar e noted in the thoracic spine. No lytic or blastic bony lesions are seen. IMPRESSION: 1. There is no evidence of central pulmonary embolus in the main, lobar, or proximal segmental pulmon michael arteries. 2. Cardiomegaly. 3. Patchy groundglass opacities throughout both lungs likely represent pulmonary edema. Correlate cli nically for evidence of a superimposed infectious/inflammatory pneumonitis. 4. Small to moderate pleural effusions with dependent consolidation. These have modestly increased in size from previous. 5. Additional findings as above. ACT 112: Negative or not required by law. Electronically signed by: Juvencio Thomas M.D. 08/02/2021 6:50 PM
[2021-08-02 19:35] LABS: Appearance Urine Clear (Clear); Bacteria Urine Automated Negative (Negative); Bilirubin Urine Negative (Negative); Blood Urine 3+ (Negative); Color Urine Yellow; Epithelial Cell Urine Auto >30 /lpf (0-5); Glucose Urine UA Negative (Negative); Ketones Urine Negative (Negative); Leukocyte Esterase Urine Trace (Negative); Nitrite Urine Negative (Negative); Protein Urine 1+ (Negative); RBC Urine Automated >30 /hpf (0-4); Specific Gravity Urine 1.019 (1.000-1.030); Urobilinogen Urine Negative (Negative)
[2021-08-02] MEDS: MIRTAZAPINE SOLTAB 15 MG PO SCH (19:56)
[2021-08-02] MEDS: SENNA 8.6 MG TAB PO SCH (19:56)
[2021-08-03] MEDS: methylPREDNISolone 40 MG in SYRINGE 0 ML IV SCH ×3 (06:23→20:03)
[2021-08-03 06:44] LABS: Blood Urea Nitrogen 37 mg/dl (6-23); Calcium 9.1 mg/dl (8.5-10.1); Carbon Dioxide > 45 mmol/L (21-32); Chloride 93 mmol/L (98-107); Creatinine Clr Calc Pharmacy 50.7 ml/min; Est GFR (African American) 67.1 ml/min; Est GFR (Non-African American) 57.9 ml/min; Glucose 102 mg/dl (70-99(Fasting)); Potassium 3.5 mmol/L (3.5-5.1); Sodium 143 mmol/L (136-145)
[2021-08-03] MEDS: ALBUT/IPRATROP 3MG/0.5MG NEB 3 ML VIAL NEB SCH ×4 (07:13→19:36)
[2021-08-03] MEDS: INSULIN ASPART PER UNIT SC SCH ×4 (08:27→20:28)
[2021-08-03] MEDS: INSULIN GLARGINE SOLOSTAR 100 UNITS/ML 3 ML PEN SC SCH ×2 (08:28→20:29)
[2021-08-03] MEDS: FUROSEMIDE 40 MG/4 ML VIAL IV SCH ×2 (08:29→20:03)
[2021-08-03] MEDS: THIAMINE HCL 100 MG TAB PO SCH (08:29)
[2021-08-03] MEDS: FINASTERIDE 5 MG TAB PO SCH (08:29)
[2021-08-03] MEDS: TAMSULOSIN HCL 0.4 MG CAP PO SCH (08:30)
[2021-08-03] MEDS: METOPROLOL TARTRATE 25 MG TAB PO SCH (08:30)
[2021-08-03] MEDS: ASPIRIN 81 MG ECTAB PO SCH (08:30)
[2021-08-03] MEDS: AZITHROMYCIN 500 MG in DEXTROSE 5% 250 ML IV SCH (08:42)
[2021-08-03] MEDS: POTASSIUM CHLORIDE 10 MEQ TABCR PO SCH ×2 (09:15→20:03)
[2021-08-03 09:37] LABS: Base Excess ABG 17.1 mEq/L (-9-1.8); HCO3 ABG 44 mmol/L (19-24); PCO2 ABG 67 mmHg (35-46); PO2 ABG 65 mmHg (80-95); pH ABG 7.44 (7.35-7.45)
[2021-08-03 09:44] LABS: Allen Test Pos (Pos)
--- NOTE | 2021-08-03 11:25 | Pharmacy Report ---
Pharmacy Glycemic Short Note 2 - Date of Service August 03, 2021 - Glycemic Short BSG Results (Last 24 hours): 08/02/21 08/02/21 08/02/21 11:33 16:08 20:03 Glucose POC Glucose 156 H 135 H 195 H 08/03/21 08/03/21 08/03/21 05:39 07:07 11:13 Glucose 102 H POC Glucose 117 H 129 H OUTPATIENT ANTIDIABETIC REGIMEN: * Metformin * HbA1c 6.7% on 08/02/21 ASSESSMENT: 08/03 * Stressors stable - remains on same dose of methylprednisolone * AM fasting BSG in goal range. However, notable trend down and Lantus also not quite at steady state. Will therefore decrease dose. * Novolog regimen OK for now - only one post-prandial BSG >180 mg/mL with the remaining at/near goal range 08/02 * Stressors stable - remains on same dose of methylprednisolone * AM fasting BSG in goal range. Will continue Lantus but split BID and scale down if BSG's trend down * Novolog regimen OK for now - only one post-prandial BSG to assess at this time 08/01 * 89 yo M with T2DM admitted 08/01 w respiratory failure / ?COPD exacerbation and initiated on methylprednisolone 40 mg IV q8h. Pharmacy consulted for glycemic management * Will initiate Lantus due to steroids and BSG elevation (even prior to the start of steroids). Lantus 0.3 units/kg initially * Will initiate Novolog ACHS at slightly looser than weight-based severe stress estimate (due to steroids) PLAN FOR INPATIENT GLYCEMIC CONTROL: * Hold outpatient metformin * Basal insulin * Lantus 5-15 units BID, depending on BSG * Bolus insulin * NovoLog per scale ACHS or Q6hrs while NPO * Goal Range: Low 110 mg/dL - High 140 mg/dL * Correction Factor: 20 mg/dL/unit * Nutritional / Prandial insulin per carb ratio of 1 unit per 6 grams CHO consumed
--- NOTE | 2021-08-03 13:43 | Hospitalist Progress Note ---
Date of Service August 03, 2021 Assessment & Plan (1) Acute and chronic respiratory failure: Plan: Patient presents with fairly abrupt respiratory failure. Not wearing BiPAP at home due to disliking it. Found to be hypoxic and hypercarbic in the emergency department with respiratory acidosis appropriate for his hypercarbia. Rescued with BiPAP breathing. Patient also was given a dose of additional diuretic given history of systolic heart failure therefore there can also be a component of acute systolic heart failure. Patient also has pulmonary hypertension with pulmonary systolic pressure estimated to be 50 For his history of chronic lung disease and suggestion of COPD the patient's continues on Solu-Medrol 40 every 8 albuterol and ipratropium nebulized 4 times daily For his hypercarbic respiratory failure he will be maintained on BiPAP therapy at bedtime and encouraged to use his BiPAP at home The outside possibility of bronchitis azithromycin is administered Will check CT scan of the chest and have pulmonary consultation maximize his treatment to try to avoid readmission. Acute systolic heart failure Lasix 80 IV was given he will be maintained on 40 IV daily. His last echocardiogram was in May. Portable chest x-ray does show slightly enlarged cardiac silhouette, repeating echocardiogram shows normal ejection fraction with concentric LVH will reduce diuretic therapy Initial troponin trend unremarkable after admission (2) Atrial fibrillation: Plan: Patient with rate controlled atrial fibrillation with metoprolol. Patient had a watchman's procedure in [facility] and was not on chronic anticoagulation. Rate seem to be controlled in the emergency department (3) Diabetes mellitus: Plan: With regard to uncontrolled diabetes likely will be worsened by steroid administration will initially start with sliding scale insulin holding Metformin we will have a glycemic management consultation to determine if basal insulin should be warranted. (4) Chronic lymphocytic leukemia: Plan: Patient has had a persistent elevation of his white blood cell count which is lymphocyte predominant studies place him at risk for opportunistic infections his leukocytosis is within his typical range (5) Depression: Plan: Patient has seen our psychiatric liaison's in the past and they recommended mirtazapine and melatonin. However he was changed to Paxil. Given the fact that he continues have sundowning behavior will revert back to the mirtazapine and melatonin with backup Haldol if needed to control his behavior at night here in the hospital. (6) DVT prophylaxis: Plan: PT prevention is heparin subcu twice daily. I had CODE STATUS discussion with the daughter at the bedside she understands t hat if he were to prove progressed to needing ventilation that would be a poor prognostic sign she also understands at some of the issues that preserved presenting to the hospital could be progression of pulmonary fibrotic change from his previous Covid infection however at this time she needs to confer with her brother before making him DNR thus he will be a full code at this time Admission and Anticipated Discharge Date Admission Date: August 01, 2021 Results & Data Results & Data ([facility]) Vital Signs (Past 12 Hours) Vital Signs Temp Pulse Pulse Resp BP Pulse Ox 08/03/21 12:06 36.6 C 77 19 159/81 H 94 08/03/21 11:16 61 18 94 08/03/21 08:21 36.7 C 89 21 140/73 95 08/03/21 07:17 64 22 97 08/03/21 07:14 64 97 08/03/21 07:00 68 08/03/21 03:44 19 08/03/21 02:55 36.4 C L 62 20 162/88 H 96 PG Care Time/CCT Total # of Minutes Spent Total Time Spent with Patient: Total time spent is greater than 50% in coordination of care (as documented) at patient's floor/unit and/or counseling patient: Coding Level of Care Code 08526 Subseq Hosp Care Lvl 3 Diagnoses Acute and chronic respiratory failure J96.20 Atrial fibrillation I48.91 Atrial fibrillation type: unspecified Diabetes mellitus E11.9 Chronic lymphocytic leukemia C91.10 Depression F32.A DVT prophylaxis Z29.9 (1) Atrial fibrillation Atrial fibrillation type: unspecified Qualified Code(s): I48.91 - Unspecified atrial fibrillation
--- NOTE | 2021-08-03 13:52 | Hospitalist Progress Note ---
Date of Service August 03, 2021 Assessment & Plan (1) Acute and chronic respiratory failure: Plan: Patient presents with fairly abrupt respiratory failure. Not wearing BiPAP at home due to disliking it. Found to be hypoxic and hypercarbic in the emergency department with respiratory acidosis appropriate for his hypercarbia. Rescued with BiPAP breathing. Patient also was given a dose of additional diuretic given history of systolic heart failure therefore there can also be a component of acute systolic heart failure. Patient also has pulmonary hypertension with pulmonary systolic pressure estimated to be 50 For his history of chronic lung disease and suggestion of COPD the patient's continues on Solu-Medrol 40 every 8 albuterol and ipratropium nebulized 4 times daily For his hypercarbic respiratory failure he was treated with BiPAP therapy at bedtime and encouraged to use his BiPAP at home Possible concurrent bronchitis : on azithromycin Pulmonary consultation appreciated. Acute systolic heart failure : improved with lasix diuresis. His last e chocardiogram was in May. Initial troponin trend unremarkable after admission (2) Atrial fibrillation: Plan: Patient with rate controlled atrial fibrillation with metoprolol. Patient had a watchman's procedure in [facility] and was not on chronic anticoagulation. Rate control. Med management (3) Diabetes mellitus: Plan: ADA diet. Sliding scale insulin. Holding Metformin . (4) Chronic lymphocytic leukemia: Plan: persistent leukocytosis which is lymphocyte predominant. At risk for opportunistic infections. (5) Depression: Plan: Patient has seen our psychiatric liaison's in the past and they recommended mirt azapine and melatonin. However he was changed to Paxil. Given the fact that he continues have sundowning behavior will revert back to the mirtazapine and melatonin with backup Haldol if needed to control his behavior at night here in the hospital. (6) DVT prophylaxis: Plan: PT prevention is heparin subcu twice daily. CODE STATUS : full Plan: Disposition: To be determined Admission and Anticipated Discharge Date Admission Date: August 01, 2021 Subjective Alert. Repeat ABGs reveal PCO2 improvement from 93 down to 67. Oral potassium replacement ordered. Will request OT and PT assessments. Continued significant diuresis with parenteral Lasix. He also is on azithromycin and Solu-Medrol. Review of Systems Review of Systems: Constitutional-no fever or chills ENT-no blurred vision, no double vision, no epistaxis, no sore throat Respiratory-no cough, no wheezing. Dyspnea on exertion Cardiac-no palpitations, no chest pain, no syncope GI-no nausea, vomiting, diarrhea, melena, hematochezia -no urinary retention, no urinary incontinence, no dysuria, no hematuria Musculoskeletal-no joint pain, no muscle tenderness Skin-no bruising, no rashes, no pruritus Neuro-no isolated weakness, no paresthesia, no weakness Psych-no depression, no anxiety Physical Exam Physical Exam: General-alert and oriented x3, no fevers, no chills HEENT-head atraumatic and normocephalic, TMs intact bilaterally, pupils equal and reactive to light, extraocular muscles intact Neck-no lymphadenopathy or thyromegaly, trachea midline Chest-diminished breath sounds bilaterally. Bibasilar inspiratory rales. No wheezing Cardiac-regular rate and rhythm, normal S1 and S2, no murmurs Abdomen-normal bowel sounds, nontender, no hepatosplenomegaly Extremities-no cyanosis, clubbing, or edema Neuro-cranial nerves II through XII intact, motor and sensory function within normal limits, strength symmetrical 5/5, no focal deficits Psych-normal affect, normal mood Results & Data Results & Data ([facility]) Vital Signs (Past 12 Hours) Vital Signs Temp Pulse Pulse Resp BP Pulse Ox 08/03/21 12:06 36.6 C 77 19 159/81 H 94 08/03/21 11:16 61 18 94 08/03/21 08:21 36.7 C 89 21 140/73 95 08/03/21 07:17 64 22 97 08/03/21 07:14 64 97 08/03/21 07:00 68 08/03/21 03:44 19 08/03/21 02:55 36.4 C L 62 20 162/88 H 96 Laboratory Results 08/01/21 09:30 08/03/21 05:39 PG Care Time/CCT Total # of Minutes Spent Total Time Spent with Patient: Total time spent is greater than 50% in coordination of care (as documented) at patient's floor/unit and/or counseling patient: Coding Level of Care Code 94106 Subseq Hosp Care Lvl 3 Diagnoses Acute and chronic respiratory failure J96.20 Atrial fibrillation I48.91 Atrial fibrillation type: unspecified Diabetes mellitus E11.9 Chronic lymphocytic leukemia C91.10 Depression F32.A DVT prophylaxis Z29.9 (1) Atrial fibrillation Atrial fibrillation type: unspecified Qualified Code(s): I48.91 - Unspecified atrial fibrillation
--- NOTE | 2021-08-03 16:09 | XRay Report ---
XR chest 1V portable CLINICAL HISTORY: follow up interstitial process TECHNIQUE: Single frontal radiograph of the chest was obtained. Comparison: Comparison is made to chest one view 08/01/2021 FINDINGS: Median sternotomy wires are seen including fractured wire. Cardiomegaly is noted. Multifocal airspace opacities are seen. No evidence of pleural effusion or pneumothorax. IMPRESSION: Multifocal airspace opacities, improved from prior exam, favored to represent improving pneumonia. ACT 112: Negative or not required by law. Electronically signed by: Syed Coley M.D. 08/03/2021 4:08 PM
--- NOTE | 2021-08-03 17:25 | Pulmonary Consultation ---
Date of Consultation August 03, 2021 Assessment & Plan (1) Acute on chronic respiratory failure with hypercapnia: 89M w/ hx DM2, CAD, CHF, atrial fibrillation (s/p watchman), and recent COVID-19 infection in May who is being managed for acute hypercapnic respiratory distress on 6 L nasal cannula. -Regarding etiology, likely COVID-19 inflammatory pneumonitis vs accessory respiratory muscle fatigue, restrictive/interstitial lung disease. -Recommend nightly use of BiPAP, with some intermittent daily use as well, then wean as indicated/tolerated. -Recommend patient use prescribed BiPAP at home nightly. Patient seen and examined with the resident physician. 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 Suspect patient has an element of chronic interstitial lung disease with abnormal chest x-rays dating back to 2017. 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 It also appears that he has an element of possible restrictive lung disease and/or neuromuscular disease given his chronic hypercapnic respiratory failure. Unclear if he has a history of COPD. No PFTs available for review. I am doubtful of a COPD diagnosis given his limited smoking history and minimal emphysema seen on his CT chest. Recommend weaning down his methylprednisolone dosing given his severe metabolic alkalosis. Recommend nightly BiPAP use given his chronic hypercapnic respiratory failure and possible neuromuscular weakness. Avoid sedating medications. Recommend judicious diuresis. Physical exam: Constitutional: Elderly appearing male, mildly confused. Eyes: Pupils are equal round and reactive to light. Conjunctivae are normal. Anicteric sclera. Ears nose, mouth and throat: No facial deformity seen. Neck: Trachea is midline. Visual inspection is normal. Respiratory: Coarse and diminished lung sounds bilaterally. Cardiovascular: Regular rate and rhythm. No murmurs. No edema. Gastrointestinal: Normal bowel sounds, soft, nontender and nondistended. No hepatosplenomegaly noted. Musculoskeletal: All extremities intact. Skin: No rashes, warm dry and intact. Neurologic: No obvious focal neurological deficits seen. Psychiatric: Mildly anxious appearing. Pleasant. History of Present Illness Attending Physician: Kvng Kelly MD History of Present Illness Abdulaziz is an 89-year-old man with a medical history that includes CLL, CHF, type 2 diabetes, hypertension, CAD, atrial fibrillation, and recent COVID-19 infection (May 2021). COVID-19 infection (May 2021). He presented to the hospital with shortness of breath, and found to be in acute respiratory distress with pronounced hypercarbia. CXR showed left lower lung opacity concerning for pneumonia versus pneumonitis. Today, he recalls suddenly feeling out of breath, like he "lost all my wind in a period of 5 minutes." He denies cough, shortness of breath at rest, fevers, chills, recent infections or URI. He does report an occasional wheeze, which she reports occurs infrequently. He has home oxygen, approximately 3 L. Following his hospitalization for COVID-19, he was prescribed home BiPAP to use nightly. However, he reports noncompliance, as he found the machine too uncomfortable. He is a small and remote history of smoking, 2 years, quit in 1950. He denies tobacco, snuff, or pipe smoking. Patient reports that he works at a [employer]. Allergies Allergy/AdvReac Type Severity Reaction Status Date / Time No Known Allergies Allergy Verified 08/01/21 09:55 Home Medications Medication Instructions Recorded Confirmed Type allopurinol 300 mg tablet 300 mg PO QAM 05/15/21 08/01/21 History aspirin 81 mg tablet,delayed 81 mg PO QAM 05/15/21 08/01/21 History release atorvastatin 20 mg tablet 20 mg PO HS 05/15/21 08/01/21 History docusate sodium 100 mg capsule 100 mg PO BID PRN 05/15/21 08/01/21 History (Colace) finasteride 5 mg tablet 5 mg PO QAM 05/15/21 08/01/21 History furosemide 40 mg tablet 40 mg PO BID17 05/15/21 08/01/21 History metformin 500 mg tablet 500 mg PO QAM 05/15/21 08/01/21 History metoprolol tartrate 25 mg tablet 12.5 mg PO QAM 05/15/21 08/01/21 History nitroglycerin 0.4 mg sublingual 0.4 mg SUBLINGUAL UD PRN 05/15/21 08/01/21 History tablet (Nitrostat) sennosides 8.6 mg tablet (senna) 17.2 mg PO HS 05/15/21 08/01/21 History tamsulosin 0.4 mg capsule 0.4 mg PO QAM 05/15/21 08/01/21 History thiamine HCl (vitamin B1) 100 mg 100 mg PO QAM 05/15/21 08/01/21 History tablet albuterol sulfate 2.5 mg INHALATION Q4 PRN 06/12/21 08/01/21 History melatonin 3 mg tablet 3 mg PO HS PRN #30 tab 06/14/21 08/01/21 Rx paroxetine HCl 10 mg tablet 10 mg PO HS 08/01/21 08/01/21 History Patient History Medical History Atrial fibrillation BPH w urinary obs/LUTS CAD (coronary artery disease) CHF (congestive heart failure) Complicated bereavement Constipation Diabetes mellitus Gout Hyperlipidemia LDL goal <70 Hypertension Insomnia Presence of Watchman left atrial appendage closure device Social History Smoking Status: Former smoker Tobacco Type: Cigarettes Second Hand Exposure: No; Do You Dip or Chew Tobacco: No; Tobacco Cessation Education Requested by Patient: No Hx Alcohol Use: Yes Alcohol type: other Hx Substance Use: No Preferred Language: Portuguese Communication Ability: Effective Wood Sawyer Required: No Beliefs That Will Affect Care: None and Christian Christian Beliefs: German Zoroastrian marital status: / Current Living Situation: Family Current Living Situation Comment: W/ family support. Other Information That Helps Us Care for You: No Feels Safe at Home: Yes Safety Concerns: Feels Safe At This Time Assistive Devices: Oxygen - Continuous Review of Systems Review of Systems: All systems reviewed & are unremarkable except as noted in HPI & below Physical Exam Physical Exam: General: Patient seated in bed comfortably and in no acute distress. CV: Regular rate and rhythm. Normal S1 and S2. No murmurs gallops or rubs. 1+ pitting edema. Pulmonary: Left-sided basilar crackles. Diffusely diminished lung sounds. No rhonchi or wheezes. Abdomen: Soft, nondistended abdomen. No bruits heard on auscultation. No tenderness to deep palpation. No guarding or rebound. Psych: Alert and oriented x3. Congruent mood and affect. Results & Data Results & Data ([facility]) Vital Signs (Past 12 Hours) Vital Signs Temp Pulse Pulse Resp BP Pulse Ox 08/03/21 16:16 36.5 C 96 H 20 169/93 H 96 08/03/21 16:00 74 08/03/21 14:56 64 91 08/03/21 12:06 36.6 C 77 19 159/81 H 94 08/03/21 11:16 61 18 94 08/03/21 08:21 36.7 C 89 21 140/73 95 08/03/21 07:17 64 22 97 08/03/21 07:14 64 97 08/03/21 07:00 68 Resident Activity Tracking Resident Involvement: Resident Care Provided Care Provided: Adult Hospital Medicine
--- NOTE | 2021-08-03 18:28 | Billing Data ---
Date of Service August 03, 2021 Coding Level of Care Code 32648 Initial Inpt Care Lvl 2
[2021-08-03] MEDS: SENNA 8.6 MG TAB PO SCH (20:03)
[2021-08-03] MEDS: MIRTAZAPINE SOLTAB 15 MG PO SCH (20:03)
[2021-08-04] MEDS: methylPREDNISolone 40 MG in SYRINGE 0 ML IV SCH (05:21)
[2021-08-04 06:29] LABS: BUN Creatinine Ratio 37.1 (10-20); Blood Urea Nitrogen 46 mg/dl (6-23); Calcium 8.3 mg/dl (8.5-10.1); Chloride 93 mmol/L (98-107); Creatinine Clr Calc Pharmacy 45.4 ml/min; Est GFR (African American) 59.4 ml/min; Est GFR (Non-African American) 51.2 ml/min; Glucose 122 mg/dl (70-99(Fasting)); Magnesium 2.2 mg/dl (1.7-2.4); Sodium 143 mmol/L (136-145)
[2021-08-04 06:45] LABS: Carbon Dioxide > 45 mmol/L (21-32)
[2021-08-04] MEDS: ALBUT/IPRATROP 3MG/0.5MG NEB 3 ML VIAL NEB SCH ×4 (07:02→19:04)
[2021-08-04] MEDS: ASPIRIN 81 MG ECTAB PO SCH (08:21)
[2021-08-04] MEDS: POTASSIUM CHLORIDE 10 MEQ TABCR PO SCH ×2 (08:22→20:07)
[2021-08-04] MEDS: METOPROLOL TARTRATE 25 MG TAB PO SCH (08:22)
[2021-08-04] MEDS: FINASTERIDE 5 MG TAB PO SCH (08:24)
[2021-08-04] MEDS: INSULIN GLARGINE SOLOSTAR 100 UNITS/ML 3 ML PEN SC SCH ×2 (08:25→20:17)
[2021-08-04] MEDS: TAMSULOSIN HCL 0.4 MG CAP PO SCH (08:26)
[2021-08-04] MEDS: THIAMINE HCL 100 MG TAB PO SCH (08:26)
[2021-08-04] MEDS: AZITHROMYCIN 500 MG in DEXTROSE 5% 250 ML IV SCH (08:27)
--- NOTE | 2021-08-04 08:41 | XRay Report ---
XR chest 1V portable CLINICAL HISTORY: follow up effusions and infiltrates post diuresis COMPARISON STUDY: Chest CT August 02, 2021. Chest radiograph August 03, 2021. FINDINGS: Median sternotomy wires are noted. Small bilateral pleural effusions are present. There is no pneumothorax. Cardiomegaly is unchanged. Persistent mild pulmonary edema similar to prior exam. Th is is improved when compared to exam of August 01, 2021. IMPRESSION: 1. No significant change in pulmonary edema since prior exam. 2. Small bilateral pleural effusions with bilateral opacities. ACT 112: Negative or not required by law. Electronically signed by: Antonio Jeffries M.D. 08/04/2021 8:39 AM
[2021-08-04] MEDS ORDERED: THIAMINE HCL 500 MG in SODIUM CHLORIDE 0.9% 50 ML IV SCH (09:00)
--- NOTE | 2021-08-04 09:41 | CT Scan Report ---
CT OF THE HEAD WITHOUT CONTRAST CLINICAL HISTORY: Hallucinations. COMPARISON STUDY: No previous studies for comparison. CT DOSE: 614.27 mGy.cm TECHNIQUE: Helical axial images of the head were obtained without IV contrast. Automated exposure con trol was utilized for the study. A dose lowering technique was utilized adhering to the principles o f ALARA. FINDINGS: No acute intracranial hemorrhage, midline shift or mass effect is present. Ventricular syst em is unremarkable. Basal cisterns are patent. There are extra-axial collections. White matter hypode nsity suggests small vessel disease. There are no findings to suggest acute dural sinus thrombosis or acute territorial infarct. There are no significant calvarial abnormalities. Bilateral mastoid air c ells are partially opacified. There is mild ethmoid sinus mucosal thickening. Small air-fluid level w ithin the left sphenoid sinus. IMPRESSION: No acute intracranial findings. ACT 112: Negative or not required by law. Electronically signed by: Antonio Jeffries M.D. 08/04/2021 9:40 AM
[2021-08-04] MEDS: INSULIN ASPART PER UNIT SC SCH ×4 (10:15→20:17)
[2021-08-04] MEDS: FUROSEMIDE 40 MG/4 ML VIAL IV SCH (10:16)
[2021-08-04 10:22] LABS: Hematocrit (blood only) 33.1 % (42-52); Hemoglobin 9.8 g/dL (14.0-18.0); Mean Corpuscular Hemoglobin 30.2 pg (25-34); Mean Corpuscular Hgb Conc 29.6 g/dL (32-36); Mean Corpuscular Volume 102.2 fL (80-100); Mean Platelet Volume 9.8 fL (7.4-10.4); Platelet Count 162 K/uL (130-400); RDW Coefficient of Variation 17.6 % (11.5-14.5); RDW Standard Deviation 65.2 fL (36.4-46.3); Red Blood Count 3.24 M/uL (4.7-6.1)
[2021-08-04 10:27] LABS: Base Excess ABG 17.6 mEq/L (-9-1.8); HCO3 ABG 45 mmol/L (19-24); Oxygen Saturation ABG 93.2 % (90-95); PCO2 ABG 67 mmHg (35-46); PO2 ABG 68 mmHg (80-95); pH ABG 7.44 (7.35-7.45)
[2021-08-04] MEDS: CYANOCOBALAMIN 1000 MCG/ML VIAL IM SCH (10:32)
[2021-08-04 10:35] LABS: Allen Test Pos (Pos)
[2021-08-04 10:45] LABS: ALC (manual) 16.93 K/uL (1.2-3.4); ANC (manual) 13.16 K/uL (1.4-6.5); Lymphocytes # (manual) 16.93 K/uL (1.2-3.4); Lymphocytes % (manual) 54.8 %; Monocytes % (manual) 2.6 %; Neutrophils # (manual) 13.16 K/uL (1.4-6.5); Neutrophils % (manual) 42.6 %
--- NOTE | 2021-08-04 14:55 | Pulmonology Progress Note ---
Date of Service August 04, 2021 Assessment & Plan (1) Acute on chronic respiratory failure with hypercapnia: Plan: 89M w/ hx DM2, CAD, CHF, atrial fibrillation (s/p watchman), and recent COVID-19 infection in May who is being managed for acute hypercapnic respiratory distress on 6 L nasal cannula. * Regarding etiology, likely COVID-19 inflammatory pneumonitis vs accessory respiratory muscle fatigue, restrictive/interstitial lung disease. * Recommend nightly use of BiPAP, with some intermittent daily use as well, then wean as indicated/tolerated. * Recommend patient use prescribed BiPAP at home nightly. * No plan to reinsert thoracostomy tube at this time, given patient's state of agitation. Admission and Anticipated Discharge Date Admission Date: August 01, 2021 Subjective Overnight, patient removed his chest tube in a fit of agitation and remained agitated throughout. Per nursing, patient was also belligerent to his 2 children, who had been contacted in an attempt to reorient him. Today, he is laying in bed with his eyes closed. However, he was aroused by voice and became immediately agitated, demanding to go home. Review of Systems Review of Systems: All systems reviewed & are unremarkable except as noted in HPI & below Physical Exam Physical Exam: General: Patient appears agitated and combative. Did not respond to orientation questions. Unable to complete rest of exam due to patient's agitation. Psych: Patient is awake but disoriented. Results & Data Results & Data ([facility]) Vital Signs (Past 12 Hours) Vital Signs Temp Pulse Pulse Resp BP BP Pulse Ox 08/04/21 10:47 77 19 97 08/04/21 10:46 19 97 08/04/21 10:40 36 C L 86 19 141/82 H 99 08/04/21 08:00 86 08/04/21 07:23 36.8 C 110 H 19 169/68 H 91 08/04/21 07:03 92 H 19 99 08/04/21 03:30 77 17 95 08/04/21 03:21 36.2 C L 79 20 164/71 H 95 Resident Activity Tracking Resident Involvement: Resident Care Provided Care Provided: Adult Hospital Medicine
[2021-08-04 16:54] LABS: Base Excess ABG 19.6 mEq/L (-9-1.8); HCO3 ABG 48 mmol/L (19-24); Oxygen Saturation ABG 98.6 % (90-95); PCO2 ABG 79 mmHg (35-46); PO2 ABG 137 mmHg (80-95)
[2021-08-04] MEDS ORDERED: HALOPERIDOL LACTATE 5 MG/ML 1 ML VIAL IM PRN (16:58)
[2021-08-04 17:01] LABS: Allen Test Pos (Pos)
--- NOTE | 2021-08-04 17:27 | Billing Data ---
Date of Service August 04, 2021 Coding Level of Care Code 75771 Subseq Hosp Care Lvl 3
[2021-08-04] MEDS ORDERED: acetaZOLAMIDE 250 MG in DEXTROSE 5% 100 ML IV ONE (17:30)
--- NOTE | 2021-08-04 19:03 | Hospitalist Progress Note ---
Date of Service August 04, 2021 Assessment & Plan (1) Acute and chronic respiratory failure: Plan: BiPAP while napping or sleeping. Patient presents with fairly abrupt respiratory failure. Not wearing BiPAP at home due to disliking it. Found to be hypoxic and hypercarbic in the emergency department with respiratory acidosis appropriate for his hypercarbia. Rescued with BiPAP breathing. CXR concerning for HFrEF vs. multifocal pneumonia vs interstitial lung disease on admission. Significant serial improvement on CXRs with diuresis suggests this is mostly pulmonary edema. No definitive evidence of COPD, no history of such and given concern for steroid-induced delirium will rapidly reduce Solu-Medrol to 40 mg today and 20 mg tomorrow. CRP is undetectable suggesting not an inflammatory process. For his hypercarbic respiratory failure he will be maintained on BiPAP therapy at bedtime and encouraged to use his BiPAP at home The outside possibility of bronchitis azithromycin -he has had 4 days of 500 mg at this point and can be discontinued. Procalcitonin negative suggesting no need for atypical coverage at this time. Appreciate pulmonary management and acetazolamide started today. (2) Acute heart failure with preserved ejection fraction: Plan: Strict I's and O's Daily weights Given metabolic alkalosis with -2 L balance daily we will reduce Lasix to 40 mg IV daily instead of twice daily (3) Visual hallucinations: Plan: Progressively worsening during this admission. Suspect most likely steroid induced delirium. Less likely hypercapnia since both this and his pulmonary edema are improving Possibly switching paroxetine to mirtazapine - this appears to be a less likely explanation since he doesn't appear to be otherwise withdrawing and he was on a low dose of paroxetine relatively. CT head - no acute pathology B12 level 268 - start cyanocobalamin 1mg IM daily Check B1 level tomorrow, continue thiamine 100mg PO (4) Atrial fibrillation: Plan: Patient with rate controlled atrial fibrillation with metoprolol. Patient had a watchman's procedure in [facility] and was not on chronic anticoagulation. Rate 70-90s on telemetry 3 beat run of NSVT (5) Diabetes mellitus: Plan: With regard to uncontrolled diabetes likely will be worsened by steroid administration will initially start with sliding scale insulin holding Metformin we will have a glycemic management consultation to determine if basal insulin should be warranted. Hemoglobin 6.7 We will need to be careful for hypoglycemic events while reducing steroids (6) Chronic lymphocytic leukemia: Plan: Patient has had a persistent elevation of his white blood cell count which is lymphocyte predominant studies place him at risk for opportunistic infections his leukocytosis is within his typical range. (7) Depression: Plan: Patient has seen our psychiatric liaison's in the past and they recommended mirtazapine and melatonin. Reportedly changed to Paroxetine as an outpatient. Agree with switching back to mirtazapine given significant side effects. Haldol 5mg IM (with zyprexa 5mg PO given earlier in the day) caused significant sedation all day, therefore will reduce Haldol IM dosing to 2.5mg for delirium. Plan: VTE Prophylaxis - heparin 5000 units BID Diet - switch to NPO given change in mental status and reduced consciousness Disposition - Continue on PCU Admission and Anticipated Discharge Date Admission Date: August 01, 2021 Subjective Having visual hallucinations this morning -seeing food and the phone that is not there. He denies any pain. Reportedly had bowel movement yesterday Has been belligerent to his family members over the phone when they call in. Zyprexa given around 5:20 AM. Also having delusions of persecution which are been present on previous admissions. No CT head previously performed and patient was refusing labs and further imaging due to these delusions of persecution. He clearly has no capacity to make his medical decisions at this time as he is unable to understand the information to give to him. Therefore Haldol 5 mg IM given to allow further work-up. This caused him to sleep the majority of the day in addition to the Zyprexa that he was given earlier. BiPAP was placed and repeat ABG shows worsening CO2 retention which I suspect happens every time he falls asleep. On discussion with his daughter (Valentine) reportedly this got acutely much worse when he is moved from the intensive care unit to PCU. It is generally progressively got worse during this admission. She denies any alcohol use. Discussed case with Dr. Lopez who ordered acetazolamide following repeat ABG for metabolic alkalosis. Review of Systems Review of Systems: Unobtainable due to cognitive status Physical Exam Constitutional: + not well nourished and no acute distress Eyes: PERRL, conjunctivae normal, anicteric sclerae ENMT: external ear and nose normal, oropharynx normal Neurologic: moves all extremities, awake and + confused Psychiatric: Orientation: alert and oriented to person (Recognized daughters voice over the phone); + not oriented to place and + not oriented to time Eye Contact: + poor eye contact Thought Content: + persecution Hallucinations: + auditory hallucinations and + visual hallucinations Genitourinary: no CVA tenderness Results & Data Results & Data ([facility]) Vital Signs (Past 12 Hours) Vital Signs Temp Pulse Pulse Resp BP BP Pulse Ox 08/04/21 15:58 36.8 C 89 18 131/62 94 08/04/21 15:49 70 08/04/21 15:07 72 18 97 08/04/21 15:03 72 18 97 08/04/21 10:47 77 19 97 08/04/21 10:46 19 97 08/04/21 10:40 36 C L 86 19 141/82 H 99 08/04/21 08:00 86 08/04/21 07:23 36.8 C 110 H 19 169/68 H 91 08/04/21 07:03 92 H 19 99 PG Care Time/CCT Total # of Minutes Spent Total Time Spent with Patient: Total time spent is greater than 50% in coordination of care (as documented) at patient's floor/unit and/or counseling patient: Coding Level of Care Code 13098 Subseq Hosp Care Lvl 3 Diagnoses Acute and chronic respiratory failure J96.20 Atrial fibrillation I48.91 Atrial fibrillation type: unspecified Diabetes mellitus E11.9 Chronic lymphocytic leukemia C91.10 Depression F32.A Visual hallucinations R44.1 Acute heart failure with preserved ejection fraction I50.31 (1) Atrial fibrillation Atrial fibrillation type: unspecified Qualified Code(s): I48.91 - Unspecified atrial fibrillation
[2021-08-04] MEDS: MIRTAZAPINE SOLTAB 15 MG PO SCH (20:07)
[2021-08-04] MEDS: SENNA 8.6 MG TAB PO SCH (20:07)
[2021-08-04] MEDS: HEPARIN SOD 5,000 UNIT/0.5 ML VIAL SQ SCH (20:37)
[2021-08-04] MEDS: acetaZOLAMIDE 250 MG in DEXTROSE 5% 100 ML IV SCH (21:04)
[2021-08-05] MEDS: ALBUT/IPRATROP 3MG/0.5MG NEB 3 ML VIAL NEB SCH ×4 (07:36→18:56)
[2021-08-05] MEDS: INSULIN ASPART PER UNIT SC SCH ×4 (08:10→20:19)
[2021-08-05] MEDS: acetaZOLAMIDE 250 MG in DEXTROSE 5% 100 ML IV SCH ×2 (08:37→20:22)
[2021-08-05] MEDS: HEPARIN SOD 5,000 UNIT/0.5 ML VIAL SQ SCH ×2 (08:38→19:53)
[2021-08-05] MEDS: ASPIRIN 81 MG ECTAB PO SCH (08:38)
[2021-08-05] MEDS: FINASTERIDE 5 MG TAB PO SCH (08:39)
[2021-08-05] MEDS: TAMSULOSIN HCL 0.4 MG CAP PO SCH (08:39)
[2021-08-05] MEDS: METOPROLOL TARTRATE 25 MG TAB PO SCH (08:39)
[2021-08-05] MEDS: THIAMINE HCL 100 MG TAB PO SCH (08:39)
[2021-08-05] MEDS: POTASSIUM CHLORIDE 10 MEQ TABCR PO SCH ×2 (08:39→19:53)
[2021-08-05] MEDS: CYANOCOBALAMIN 1000 MCG/ML VIAL IM SCH (08:40)
[2021-08-05 08:58] LABS: BUN Creatinine Ratio 43.2 (10-20); Blood Urea Nitrogen 48 mg/dl (6-23); Calcium 8.1 mg/dl (8.5-10.1); Carbon Dioxide > 45 mmol/L (21-32); Chloride 96 mmol/L (98-107); Creatinine Clr Calc Pharmacy 49.9 ml/min; Est GFR (African American) 67.9 ml/min; Est GFR (Non-African American) 58.6 ml/min; Glucose 79 mg/dl (70-99(Fasting)); Potassium 3.7 mmol/L (3.5-5.1); Sodium 144 mmol/L (136-145)
[2021-08-05] MEDS ORDERED: methylPREDNISolone 20 MG in SYRINGE 0 ML IV SCH (09:00)
[2021-08-05] MEDS ORDERED: methylPREDNISolone 40 MG in SYRINGE 0 ML IV SCH (09:00)
[2021-08-05] MEDS ORDERED: INSULIN GLARGINE SOLOSTAR 100 UNITS/ML 3 ML PEN SC ONE (09:00)
[2021-08-05] MEDS ORDERED: FUROSEMIDE 40 MG/4 ML VIAL IV SCH (09:00)
--- NOTE | 2021-08-05 09:42 | XRay Report ---
XR chest 1V portable CLINICAL HISTORY: CHF TECHNIQUE: Single frontal radiograph of the chest was obtained. Comparison: Comparison is made to chest one view 08/04/2021 FINDINGS: Stable mediastinal wires including fractured first wire. The cardiomediastinal silhouette is stable. Mild pulmonary edema, improved from prior exam. Small bilateral pleural effusions are seen. IMPRESSION: Small bilateral pleural effusions are again seen. Mild pulmonary edema, slightly improved from prior exam. ACT 112: Negative or not required by law. Electronically signed by: Syed Coley M.D. 08/05/2021 9:41 AM
[2021-08-05 10:12] LABS: Base Excess ABG 16.6 mEq/L (-9-1.8); HCO3 ABG 46 mmol/L (19-24); Oxygen Saturation ABG 96.3 % (90-95); PCO2 ABG 85 mmHg (35-46); PO2 ABG 96 mmHg (80-95); pH ABG 7.35 (7.35-7.45)
[2021-08-05 10:13] LABS: Allen Test Pos (Pos)
[2021-08-05 13:08] LABS: Base Excess ABG 16.9 mEq/L (-9-1.8); HCO3 ABG 44 mmol/L (19-24); Oxygen Saturation ABG 94.4 % (90-95); PCO2 ABG 67 mmHg (35-46); PO2 ABG 71 mmHg (80-95); pH ABG 7.43 (7.35-7.45)
[2021-08-05 13:12] LABS: Allen Test Pos (Pos)
--- NOTE | 2021-08-05 13:19 | Pharmacy Report ---
Pharmacy Glycemic Short Note 2 - Date of Service August 05, 2021 - Glycemic Short BSG Results (Last 24 hours): 08/04/21 08/04/21 08/05/21 16:26 20:09 04:41 Glucose POC Glucose 112 H 106 H 85 08/05/21 08/05/21 08/05/21 07:44 07:53 10:54 Glucose 79 POC Glucose 83 88 08/05/21 12:56 Glucose POC Glucose 90 OUTPATIENT ANTIDIABETIC REGIMEN: * Metformin * HbA1c 6.7% on 08/02/21 ASSESSMENT: 08/05/21 * Patient's BSGs yesterday were [phone] mg/dL. Fasting today was 83 mg/dL with a lunch BSG of 88 mg/dL. * Patient received 29 units of insulin yesterday (15 units of basal and 14 units of bolus). * Steroids changed to Solu-Medrol 20 mg IV daily. * Decrease Lantus to 10 units. * Continue Novolog weight-based stress of 3. 3 * Stressors stable - remains on same dose of methylprednisolone * AM fasting BSG in goal range. However, notable trend down and Lantus also not quite at steady state. Will therefore decrease dose. * Novolog regimen OK for now - only one post-prandial BSG >180 mg/mL with the remaining at/near goal range 08/02 * Stressors stable - remains on same dose of methylprednisolone * AM fasting BSG in goal range. Will continue Lantus but split BID and scale down if BSG's trend down * Novolog regimen OK for now - only one post-prandial BSG to assess at this time 08/01 * 89 yo M with T2DM admitted 08/01 w respiratory failure / ?COPD exacerbation and initiated on methylprednisolone 40 mg IV q8h. Pharmacy consulted for glycemic management * Will initiate Lantus due to steroids and BSG elevation (even prior to the start of steroids). Lantus 0.3 units/kg initially * Will initiate Novolog ACHS at slightly looser than weight-based severe stress estimate (due to steroids) PLAN FOR INPATIENT GLYCEMIC CONTROL: * Hold outpatient metformin * Basal insulin * Lantus 10 units daily * Bolus insulin * NovoLog per scale ACHS or Q6hrs while NPO * Goal Range: Low 110 mg/dL - High 140 mg/dL * Correction Factor: 20 mg/dL/unit * Nutritional / Prandial insulin per carb ratio of 1 unit per 6 grams CHO consumed
[2021-08-05] MEDS ORDERED: PARoxetine HCL 10 MG TAB PO ONE (17:07)
--- NOTE | 2021-08-05 17:45 | Pulmonology Progress Note ---
Date of Service August 05, 2021 Assessment & Plan (1) Acute on chronic respiratory failure with hypercapnia: Plan: 89M w/ hx DM2, CAD, CHF, atrial fibrillation (s/p watchman), and recent COVID-19 infection in May who is being managed for acute hypercapnic respiratory distress on 6 L nasal cannula. * Regarding etiology, likely COVID-19 inflammatory pneumonitis vs accessory respiratory muscle fatigue, restrictive/interstitial lung disease. * Recommend nightly use of BiPAP, with some intermittent daily use as well, then wean as indicated/tolerated. * Recommend patient use prescribed BiPAP at home nightly. Admission and Anticipated Discharge Date Admission Date: August 01, 2021 Supervising Physician Co-Signing Physician Notes Agree with assessment and plan of resident physician aside for any additions/exceptions noted: Encephalopathy improved today, but continues to be lethargic. Recommend BiPAP at all times while sleeping. Etiology of chronic hypercapnic respiratory failure unclear. Possible central sleep apnea versus neuromuscular disorder. Recommend neurology consultation. Would benefit from outpatient polysomnography, but daughter notes that patient previously became claustrophobic and refused polysomnography. EMG studies may need to be considered. Underlying ILD may also be playing a role. Will check a CK level to screen for myositis. Agree with tapering off steroids given encephalopathy and improved respiratory status. Continue for total 4 doses of acetazolamide given metabolic alkalosis which is a compensatory mechanism due to his chronic hypercapnia. Likely contraction alkalosis present as well. Holding further diuresis with Lasix. Lengthy discussion with daughter at bedside. Physical exam: Constitutional: Elderly appearing male in no apparent distress Eyes: Pupils are equal round and reactive to light. Conjunctivae are normal. Anicteric sclera. Ears nose, mouth and throat: No facial deformity seen. Neck: Trachea is midline. Visual inspection is normal. Respiratory: Coarse and diminished lung sounds bilaterally. Cardiovascular: Regular rate and rhythm. No murmurs. No edema. Gastrointestinal: Normal bowel sounds, soft, nontender and nondistended. No hepatosplenomegaly noted. Musculoskeletal: All extremities intact. Skin: No rashes, warm dry and intact. Neurologic: More awake and alert. Myotonic twitching activity at times. Psychiatric: Obtunded Subjective Patient was obtunded most of the night, per nursing. This morning, patient appears obtunded. He is easily arousable to voice. However, he does not awake/open his eyes. Review of Systems Review of Systems: All systems reviewed & are unremarkable except as noted in HPI & below Physical Exam Physical Exam: General: Patient is AAO x3 and in no acute distress. HEENT: Non-erythematous oropharynx; no lymphadenopathy; normal dentition. CV: Regular rate and rhythm. Normal S1 and S2. No murmurs gallops or rubs. No pedal edema. Pulmonary: Mild crackles. No rhonchi, or wheezes. Results & Data Results & Data ([facility]) Vital Signs (Past 12 Hours) Vital Signs Temp Pulse Pulse Pulse Resp BP BP 08/05/21 16:09 36.6 C 78 20 128/72 08/05/21 14:35 78 78 19 08/05/21 12:00 36.5 C 68 18 135/69 08/05/21 11:20 64 64 18 08/05/21 07:36 68 78 17 08/05/21 07:00 36.5 C 82 16 136/66 Pulse Ox 08/05/21 16:09 97 08/05/21 14:35 93 08/05/21 12:00 97 08/05/21 11:20 98 08/05/21 07:36 98 08/05/21 07:00 99 Resident Activity Tracking Resident Involvement: Resident Care Provided Care Provided: Adult Hospital Medicine
--- NOTE | 2021-08-05 18:36 | Hospitalist Progress Note ---
Date of Service August 05, 2021 Assessment & Plan (1) Acute and chronic respiratory failure: Plan: BiPAP while napping or sleeping. 16/11, wean O2 to aim O2 sats 88-92% Patient presents with fairly abrupt respiratory failure. Not wearing BiPAP at home due to disliking it. Found to be hypoxic and hypercarbic in the emergency department with respiratory acidosis appropriate for his hypercarbia. Rescued with BiPAP breathing. CXR concerning for HFrEF vs. multifocal pneumonia vs interstitial lung disease on admission. Significant serial improvement on CXRs with diuresis suggests this is mostly pulmonary edema. No definitive evidence of COPD, no history of such however daughter reports today he was having significant improvement with duonebs at home post COVID but was able to eventually only need them PRN The outside possibility of bronchitis azithromycin - he has had 4 days of 500 mg, now discontinued. Procalcitonin negative suggesting no need for typical coverage at this time. Appreciate pulmonary management and acetazolamide started 3/4 for metabolic alkalosis. (2) Acute heart failure with preserved ejection fraction: Plan: Strict I's and O's Daily weights Given metabolic alkalosis with -2 L balance daily and metabolic alkalosis, lasix reduced to 40mg IV daily. (3) Visual hallucinations: Plan: Progressively worsening during this admission. Suspect most likely steroid induced delirium vs. mirtazapine use (vs. Paxil withdrawal) vs. metabolic alkalosis. Less likely hypercapnia since both this and his pulmonary edema are improving Per daughter reports prior hallucinations on mirtazepine therefore will switch this back to paroxetine whenever he is able to swallow pills again CT head - no acute pathology B12 level 268 - start cyanocobalamin 1mg IM daily Check B1 level pending, continue thiamine 100mg PO (4) Atrial fibrillation: Plan: Patient with rate controlled atrial fibrillation with metoprolol. Patient had a watchman's procedure in [facility] and is not on chronic anticoagulation. Rate 70-90s on telemetry (5) Diabetes mellitus: Plan: With regard to uncontrolled diabetes likely will be worsened by steroid administration will initially start with sliding scale insulin holding Metformin we will have a glycemic management consultation to determine if basal insulin should be warranted. Hemoglobin 6.7 We will need to be careful for hypoglycemic events while reducing steroids (6) Chronic lymphocytic leukemia: Plan: Patient has had a persistent elevation of his white blood cell count which is lymphocyte predominant studies place him at risk for opportunistic infections his leukocytosis is within his typical range. (7) Depression: Plan: Patient has seen our psychiatric liaison's in the past and they recommended mirtazapine and melatonin. Switch back to Paxil due to possibility of mirtazapine causing visual hallucinations Hold further sedating medications at the present time. Plan: VTE Prophylaxis - heparin 5000 units BID Diet - continue NPO given change in mental status and reduced consciousness Disposition - Continue on PCU Admission and Anticipated Discharge Date Admission Date: August 01, 2021 Subjective Patient initially arousable to voice this morning however became more obtunded throughout the day. In the morning the patient was able to tell me his name and that he did want to be intubated if his medical condition was to get worse. But unable to get much more history and falls back to sleep quickly. Updated his daughter at bedside and over the phone. Unfortunately throughout the day he became more obtunded however with trending down his oxygen levels his PaCO2 did improve -therefore no need for intubation at this time. Discussed case with Dr. Lopez. His daughter reports today that he had a previous but much milder visual hallucinations when mirtazapine was started in May. Mirtazapine was switched to paroxetine due to these hallucinations in June. No known history of COPD but he was having significant benefit from duo nebs as an outpatient post Covid; eventually he was able to wean off this. Review of Systems Review of Systems: Unobtainable due to cognitive status Physical Exam Constitutional: + not well nourished and no acute distress Eyes: PERRL, conjunctivae normal, anicteric sclerae (pupils pinpoint) ENMT: external ear and nose normal, oropharynx normal Respiratory: + respiratory distress, + labored breathing, + uses accessory muscles and + prolonged expiratory phase; no audible wheezes Auscultation: + diminished lung sounds (throughout) and + crackles (bibasal); no wheezes Gastrointestinal (Abdomen): Inspection/Auscultation: normal bowel sounds Percussion/Palpation: abdomen soft; abdomen nontender Neurologic: moves all extremities, awake (to voice) and + confused Psychiatric: Orientation: alert (to voice) and oriented to person (self); + not oriented to place and + not oriented to time Eye Contact: + poor eye contact Results & Data Results & Data ([facility]) Vital Signs (Past 12 Hours) Vital Signs Temp Pulse Pulse Pulse Resp BP BP 08/05/21 16:09 36.6 C 78 20 128/72 08/05/21 16:00 78 08/05/21 14:35 78 78 19 08/05/21 12:00 36.5 C 68 18 135/69 08/05/21 11:20 64 64 18 08/05/21 07:36 68 78 17 08/05/21 07:00 36.5 C 82 16 136/66 Pulse Ox 08/05/21 16:09 97 08/05/21 16:00 08/05/21 14:35 93 08/05/21 12:00 97 08/05/21 11:20 98 08/05/21 07:36 98 08/05/21 07:00 99 PG Care Time/CCT Total # of Minutes Spent Total Time Spent with Patient: Total time spent is greater than 50% in coordination of care (as documented) at patient's floor/unit and/or counseling patient: Coding Level of Care Code 67998 Subseq Hosp Care Lvl 3 Diagnoses Acute and chronic respiratory failure J96.20 Acute heart failure with preserved ejection fraction I50.31 Visual hallucinations R44.1 Atrial fibrillation I48.91 Atrial fibrillation type: unspecified Diabetes mellitus E11.9 Chronic lymphocytic leukemia C91.10 Depression F32.A (1) Atrial fibrillation Atrial fibrillation type: unspecified Qualified Code(s): I48.91 - Unspecified atrial fibrillation
[2021-08-05] MEDS: methylPREDNISolone 20 MG in SYRINGE 0 ML IV SCH (19:52)
[2021-08-05] MEDS: SENNA 8.6 MG TAB PO SCH (19:53)
--- NOTE | 2021-08-05 19:55 | Billing Data ---
Date of Service August 05, 2021 Coding Level of Care Code 80586 Subseq Hosp Care Lvl 3
[2021-08-06 06:09] LABS: Base Excess ABG 13.8 mEq/L (-9-1.8); HCO3 ABG 41 mmol/L (19-24); Oxygen Saturation ABG 95.6 % (90-95); PCO2 ABG 64 mmHg (35-46); PO2 ABG 79 mmHg (80-95); pH ABG 7.42 (7.35-7.45)
[2021-08-06 06:17] LABS: Allen Test POS (Pos)
[2021-08-06 06:30] LABS: Albumin Globulin Ratio 1.5 (0.9-2); Albumin Level 3.3 gm/dl (3.4-5.0); BUN Creatinine Ratio 45.1 (10-20); Bilirubin,Total 0.9 mg/dl (0.2-1.0); Calcium 8.8 mg/dl (8.5-10.1); Creatinine Clr Calc Pharmacy 48.8 ml/min; Est GFR (African American) 66.4 ml/min; Est GFR (Non-African American) 57.3 ml/min; Globulin 2.2 gm/dl (2.5-4.0); Potassium 3.7 mmol/L (3.5-5.1); Total Protein 5.5 gm/dl (6.0-8.3)
--- NOTE | 2021-08-06 06:32 | Electrocardiogram Report ---
Test Reason : Blood Pressure : / mmHG Vent. Rate : 078 BPM Atrial Rate : 093 BPM P-R Int : 000 ms QRS Dur : 098 ms QT Int : 358 ms P-R-T Axes : 000 041 038 degrees QTc Int : 408 ms Atrial fibrillation with premature ventricular or aberrantly conducted complexes Septal infarct , age undetermined Nonspecific T wave abnormality Abnormal ECG When compared with ECG of 01-AUG-2021 09:16, Septal infarct is now Present ST no longer depressed in Lateral leads Nonspecific T wave abnormality, worse in Anterior leads QT has shortened Confirmed by Mervin Foreman ([id number]) on 08/06/2021 6:32:24 AM Referred By: REFERRED SELF Confirmed By:Mervin Foreman
[2021-08-06 06:47] LABS: Hematocrit (blood only) 34.5 % (42-52); Hemoglobin 10.1 g/dL (14.0-18.0); Mean Corpuscular Hemoglobin 30.1 pg (25-34); Mean Corpuscular Hgb Conc 29.3 g/dL (32-36); Mean Corpuscular Volume 102.7 fL (80-100); Mean Platelet Volume 9.7 fL (7.4-10.4); Platelet Count 139 K/uL (130-400); RDW Coefficient of Variation 17.5 % (11.5-14.5); Red Blood Count 3.36 M/uL (4.7-6.1); White Blood Count 28.39 K/uL (4.8-10.8)
[2021-08-06 06:49] LABS: ALC (manual) 20.07 K/uL (1.2-3.4); ANC (manual) 7.58 K/uL (1.4-6.5); Lymphocytes # (manual) 20.07 K/uL (1.2-3.4); Lymphocytes % (manual) 70.7 %; Monocytes # (manual) 0.74 K/uL (0.11-0.59); Monocytes % (manual) 2.6 %; Neutrophils # (manual) 7.58 K/uL (1.4-6.5); Neutrophils % (manual) 26.7 %
[2021-08-06] MEDS: ALBUT/IPRATROP 3MG/0.5MG NEB 3 ML VIAL NEB SCH ×4 (07:24→19:02)
[2021-08-06] MEDS: CYANOCOBALAMIN 1000 MCG/ML VIAL IM SCH (08:00)
[2021-08-06] MEDS: POTASSIUM CHLORIDE 10 MEQ TABCR PO SCH ×2 (08:00→21:19)
[2021-08-06] MEDS: methylPREDNISolone 20 MG in SYRINGE 0 ML IV SCH (08:00)
[2021-08-06] MEDS: HEPARIN SOD 5,000 UNIT/0.5 ML VIAL SQ SCH ×2 (08:00→21:19)
[2021-08-06] MEDS: METOPROLOL TARTRATE 25 MG TAB PO SCH (08:00)
[2021-08-06] MEDS ORDERED: INSULIN GLARGINE SOLOSTAR 100 UNITS/ML 3 ML PEN SC ONE (08:00)
[2021-08-06] MEDS: ASPIRIN 81 MG ECTAB PO SCH (08:01)
[2021-08-06] MEDS: TAMSULOSIN HCL 0.4 MG CAP PO SCH (08:01)
[2021-08-06] MEDS: THIAMINE HCL 100 MG TAB PO SCH (08:01)
[2021-08-06] MEDS: FINASTERIDE 5 MG TAB PO SCH (08:01)
[2021-08-06] MEDS: INSULIN ASPART PER UNIT SC SCH ×4 (08:06→20:08)
[2021-08-06] MEDS: acetaZOLAMIDE 250 MG in DEXTROSE 5% 100 ML IV SCH (08:07)
--- NOTE | 2021-08-06 09:10 | Pharmacy Report ---
Pharmacy Glycemic Short Note 2 - Date of Service August 06, 2021 - Glycemic Short BSG Results (Last 24 hours): 08/05/21 08/05/21 08/05/21 10:54 12:56 17:06 Glucose POC Glucose 88 90 101 H 08/05/21 08/05/21 08/06/21 17:07 20:00 05:55 Glucose 109 H POC Glucose 98 103 H 08/06/21 07:38 Glucose POC Glucose 128 H OUTPATIENT ANTIDIABETIC REGIMEN: * Metformin * HbA1c 6.7% on 08/02/21 ASSESSMENT: 08/06/21 * Patient's BSGs yesterday were 11-63-36-103 mg/dL. Patient received 10 units of Lantus. * Fasting today is 128 mg/dL. * Patient changed back to Solu-Medrol 20 mg IV BID. * Will increase Lantus to 15 units again as steroids increased and diet has improved. * Continue Novolog. 08/05/21 * Patient's BSGs yesterday were [phone] mg/dL. Fasting today was 83 mg/dL with a lunch BSG of 88 mg/dL. * Patient received 29 units of insulin yesterday (15 units of basal and 14 units of bolus). * Steroids changed to Solu-Medrol 20 mg IV daily. * Decrease Lantus to 10 units. * Continue Novolog weight-based stress of 3. 3 * Stressors stable - remains on same dose of methylprednisolone * AM fasting BSG in goal range. However, notable trend down and Lantus also not quite at steady state. Will therefore decrease dose. * Novolog regimen OK for now - only one post-prandial BSG >180 mg/mL with the remaining at/near goal range 08/02 * Stressors stable - remains on same dose of methylprednisolone * AM fasting BSG in goal range. Will continue Lantus but split BID and scale down if BSG's trend down * Novolog regimen OK for now - only one post-prandial BSG to assess at this time 08/01 * 89 yo M with T2DM admitted 08/01 w respiratory failure / ?COPD exacerbation and initiated on methylprednisolone 40 mg IV q8h. Pharmacy consulted for glycemic management * Will initiate Lantus due to steroids and BSG elevation (even prior to the start of steroids). Lantus 0.3 units/kg initially * Will initiate Novolog ACHS at slightly looser than weight-based severe stress estimate (due to steroids) PLAN FOR INPATIENT GLYCEMIC CONTROL: * Hold outpatient metformin * Basal insulin * Lantus 15 units daily * Bolus insulin * NovoLog per scale ACHS or Q6hrs while NPO * Goal Range: Low 110 mg/dL - High 140 mg/dL * Correction Factor: 20 mg/dL/unit * Nutritional / Prandial insulin per carb ratio of 1 unit per 6 grams CHO consumed
--- NOTE | 2021-08-06 12:06 | Pulmonology Progress Note ---
Date of Service August 06, 2021 Assessment & Plan (1) Acute on chronic respiratory failure with hypercapnia: (2) Hypoxia: (3) CHF (congestive heart failure): Heart failure chronicity: acute on chronic Heart failure type: unspecified Qualified Code(s): I50.9 - Heart failure, unspecified (4) Pulmonary edema: Chronicity: acute Qualified Code(s): J81.0 - Acute pulmonary edema (5) Metabolic alkalosis: (6) Abnormal CT scan, chest: Plan: His encephalopathy continues to be resolving. Would recommend strict avoidance of sedatives if possible. Suspected encephalopathy was multifactorial related to high-dose steroids, hypercapnia and disorientation. Agree with tapering of steroids. The etiology of his hypercapnic respiratory failure is unclear. He does have a component of chronic interstitial lung disease as noted previously in my notes. He seems to have interstitial markings on his chest x-rays going back several years. CK level checked this morning was not elevated. Doubtful of a myositis diagnosis, but more thorough work-up can be considered as an outpatient. Recommend neurology evaluation to evaluate for central causes of hypercapnia and neuromuscular disease. Unfortunately, he was unable to tolerate an in lab polysomnography in the past due to claustrophobia and agitation per his daughter. Would recommend trilogy/AVAPS as an outpatient and strict compliance with therapy. He completed a total of 4 doses of acetazolamide given his me tabolic alkalosis. Alkalosis appears to be improving with decreasing the steroid dosing, decreasing Lasix dosing and the addition of acetazolamide. Hypoxia is also likely multifactorial related to diastolic heart failure, possible component of ILD, recovering from recent Covid illness and possible neuromuscular disease leading to hypoventilation as noted previously. At this time, pulmonary will sign off. Please call with questions. Thank you for the consultation. Admission and Anticipated Discharge Date Admission Date: August 01, 2021 Subjective Patient seen and examined this morning. He is sitting up in a chair and much more alert. Currently on 2 L of oxygen. Denies any shortness of breath at rest. No chest pain. No fevers or chills. Per nursing, he has been made more pleasant and awake today. Review of Systems Review of Systems: All systems reviewed & are unremarkable except as noted in HPI & below Physical Exam Physical Exam: Constitutional: Elderly appearing male in no apparent distress Eyes: Pupils are equal round and reactive to light. Conjunctivae are normal. Anicteric sclera. Ears nose, mouth and throat: No facial deformity seen. Neck: Trachea is midline. Visual inspection is normal. Respiratory: Coarse and diminished lung sounds bilaterally. Cardiovascular: Regular rate and rhythm. No murmurs. No edema. Gastrointestinal: Normal bowel sounds, soft, nontender and nondistended. No hepatosplenomegaly noted. Musculoskeletal: All extremities intact. Skin: No rashes, warm dry and intact. Neurologic: More awake and alert. Psychiatric: Alert and oriented x3. Pleasant. Results & Data Results & Data ([facility]) Vital Signs (Past 12 Hours) Vital Signs Temp Pulse Pulse Resp BP Pulse Ox 08/06/21 08:03 35.7 C L 72 21 130/86 95 08/06/21 07:24 72 72 21 95 08/06/21 04:22 36.4 C L 76 22 125/71 94 08/06/21 02:37 77 21 99 PG Care Time/CCT Total # of Minutes Spent Total Time Spent with Patient: Total time spent is greater than 50% in coordination of care (as documented) at patient's floor/unit and/or counseling patient: Coding Level of Care Code 94597 Subseq Hosp Care Lvl 2 Diagnoses Acute on chronic respiratory failure with hypercapnia J96.22 Hypoxia R09.02 CHF (congestive heart failure) I50.9 Heart failure chronicity: acute on chronic Heart failure type: unspecified Pulmonary edema J81.0 Chronicity: acute Metabolic alkalosis E87.[address] scan, chest R93.89
--- NOTE | 2021-08-06 20:22 | Hospitalist Progress Note ---
Date of Service August 06, 2021 Assessment & Plan (1) Acute and chronic respiratory failure: Plan: BiPAP while napping or sleeping. 16/11, wean O2 to aim O2 sats 88-92% Patient presents with fairly abrupt respiratory failure. Not wearing BiPAP at home due to disliking it. Found to be hypoxic and hypercarbic in the emergency department with respiratory acidosis appropriate for his hypercarbia. Rescued with BiPAP breathing. CXR concerning for HFrEF vs. multifocal pneumonia vs interstitial lung disease on admission. Significant serial improvement on CXRs with diuresis suggests this is mostly pulmonary edema. No definitive evidence of COPD, no history of such however daughter reports today he was having significant improvement with duonebs at home post COVID but was able to eventually only need them PRN. Reduce solu-medrol to 20mg IV daily. The outside possibility of bronchitis azithromycin - he has had 4 days of 500 mg, now discontinued. Procalcitonin negative suggesting no need for typical coverage at this time. Appreciate pulmonary management and acetazolamide started 3/4 for metabolic alkalosis. (2) Acute heart failure with preserved ejection fraction: Plan: Strict I's and O's Daily weights Given metabolic alkalosis with -2 L balance daily and metabolic alkalosis, lasix discontinued today duet o metabolic alkalosis and continued negative balance on acetazolamide. Restart Lasix at his home dosing tomorrow 40mg PO BID (3) Visual hallucinations: Plan: Now resolved - ?steroid induced (improvement with reducing steroids) vs. mirtazepine (prior hallucination on this medication) Now back on Paxil 10mg PO HS CT head - no acute pathology B12 level 268 - start cyanocobalamin 1mg IM daily Check B1 level pending, continue thiamine 100mg PO (4) Atrial fibrillation: Plan: Patient with rate controlled atrial fibrillation with metoprolol. Patient had a watchman's procedure in [facility] and is not on chronic anticoagulation. Rate 70-90s on telemetry (5) Diabetes mellitus: Plan: With regard to uncontrolled diabetes likely will be worsened by steroid administration will initially start with sliding scale insulin holding Metformin we will have a glycemic management consultation to determine if basal insulin should be warranted. Hemoglobin 6.7 We will need to be careful for hypoglycemic events while reducing steroids (6) Chronic lymphocytic leukemia: Plan: Patient has had a persistent elevation of his white blood cell count which is lymphocyte predominant studies place him at risk for opportunistic infections his leukocytosis is within his typical range. (7) Depression: Plan: Patient has seen our psychiatric liaison's in the past and they recommended mirtazapine and melatonin. Switch back to Paxil due to possibility of mirtazapine causing visual hallucinations Hold further sedating medications at the present time. Plan: VTE Prophylaxis - heparin 5000 units BID Diet - low Na, T2DM Disposition - Continue on PCU Admission and Anticipated Discharge Date Admission Date: August 01, 2021 Subjective Patient much improved today. No visual hallucinations noted. Awake and alert and eating well since yesterday evening. Asking when he can get out of hospital. Managed to get out of bed to chair today. He denies significant shortness of breath at rest. Review of Systems Review of Systems: All systems reviewed & are unremarkable except as noted in Subjective Physical Exam Constitutional: + not well nourished and no acute distress Respiratory: normal respiratory effort; no labored breathing, does not use accessory muscles, expiratory phase not prolonged and no audible wheezes Auscultation: + diminished lung sounds (throughout) and + crackles (bibasal); no wheezes Gastrointestinal (Abdomen): Inspection/Auscultation: normal bowel sounds Percussion/Palpation: abdomen soft; abdomen nontender Neurologic: moves all extremities and awake; not confused Psychiatric: Orientation: alert, oriented to person (self) and oriented to place; + not oriented to time Eye Contact: + fair eye contact Leach ucinations: no visual hallucinations Results & Data Results & Data ([facility]) Vital Signs (Past 12 Hours) Vital Signs Temp Pulse Resp BP Pulse Ox 08/06/21 19:02 77 20 94 08/06/21 19:00 36.6 C 76 18 136/57 L 95 08/06/21 17:06 36.9 C 54 L 21 109/62 92 08/06/21 16:07 94 08/06/21 14:22 59 L 18 93 08/06/21 12:07 53 L 21 93 08/06/21 11:57 35.8 C L 58 L 21 89/53 L 89 L PG Care Time/CCT Total # of Minutes Spent Total Time Spent with Patient: Total time spent is greater than 50% in coordination of care (as documented) at patient's floor/unit and/or counseling patient: Coding Level of Care Code 10169 Subseq Hosp Care Lvl 3 Diagnoses Acute and chronic respiratory failure J96.20 Acute heart failure with preserved ejection fraction I50.31 Visual hallucinations R44.1 Atrial fibrillation I48.91 Atrial fibrillation type: unspecified Diabetes mellitus E11.9 Chronic lymphocytic leukemia C91.10 Depression F32.A (1) Atrial fibrillation Atrial fibrillation type: unspecified Qualified Code(s): I48.91 - Unspecified atrial fibrillation
[2021-08-06] MEDS: SENNA 8.6 MG TAB PO SCH (21:19)
[2021-08-06] MEDS: PARoxetine HCL 10 MG TAB PO SCH (21:20)
[2021-08-07] MEDS: ALBUT/IPRATROP 3MG/0.5MG NEB 3 ML VIAL NEB SCH ×4 (06:57→19:05)
[2021-08-07] MEDS: INSULIN ASPART PER UNIT SC SCH ×4 (08:36→20:20)
[2021-08-07] MEDS: INSULIN GLARGINE SOLOSTAR 100 UNITS/ML 3 ML PEN SC SCH (08:40)
[2021-08-07] MEDS: CYANOCOBALAMIN 1000 MCG/ML VIAL IM SCH (08:46)
[2021-08-07] MEDS: HEPARIN SOD 5,000 UNIT/0.5 ML VIAL SQ SCH ×2 (08:50→20:21)
[2021-08-07] MEDS: methylPREDNISolone 20 MG in SYRINGE 0 ML IV SCH (08:56)
[2021-08-07] MEDS: ASPIRIN 81 MG ECTAB PO SCH (08:59)
[2021-08-07] MEDS: THIAMINE HCL 100 MG TAB PO SCH (08:59)
[2021-08-07] MEDS: FINASTERIDE 5 MG TAB PO SCH (08:59)
[2021-08-07] MEDS: TAMSULOSIN HCL 0.4 MG CAP PO SCH (09:01)
[2021-08-07] MEDS: FUROSEMIDE 40 MG TAB PO SCH ×2 (09:01→18:21)
[2021-08-07] MEDS: POTASSIUM CHLORIDE 10 MEQ TABCR PO SCH (09:02)
[2021-08-07] MEDS: METOPROLOL TARTRATE 25 MG TAB PO SCH (09:11)
--- NOTE | 2021-08-07 15:22 | Hospitalist Progress Note ---
Date of Service August 07, 2021 Assessment & Plan (1) Acute and chronic respiratory failure: Plan: BiPAP while napping or sleeping. 16/11, wean O2 to aim O2 sats 88-92% Likely multifactorial; pulmonary note noted; at present not tolerating/agreeing to NIV; trilogy at discharge though will go to rehab (2) Acute heart failure with preserved ejection fraction: Plan: Noted resumption of Lasix; follow bicarb; Do not see cardiology has evaluated but at present several days into the course can c as outpatient (3) Visual hallucinations: Plan: Still encephalopathic though appears betterat present inclined to simply follow; if persists might consider MRI (4) Atrial fibrillation: Plan: Patient with rate controlled atrial fibrillation with metoprolol. Patient had a watchman's procedure in [facility] and is not on chronic anticoagulation. Rate 70-90s on telemetry (5) Diabetes mellitus: Plan: Sugars reasonably acceptablefollow; no change in long-term insulin management (6) Chronic lymphocytic leukemia: Plan: Patient has had a persistent elevation of his white blood cell count which is lymphocyte predominant studies place him at risk for opportunistic infections his leukocytosis is within his typical range. (7) Depression: Plan: Patient has seen our psychiatric liaison's in the past and they recommended mirtazapine and melatonin. Switch back to Paxil due to possibility of mirtazapine causing visual hallucinations Hold further sedating medications at the present time. Plan: Trial of Vang removal VTE Prophylaxis - heparin 5000 units BID Diet - low Na, T2DM Disposition - Continue on PCU-anticipate will need rehab Updated family (daughter) at bedside Admission and Anticipated Discharge Date Admission Date: August 01, 2021 Subjective Follow-up of presentation with respiratory failure; still confused; repetitive and not making sense at times; apparently took off NIV last p.m. Physical Exam Physical Exam: Constitutional and general: No acute distress as such but looks chronically ill looks biologic age Confused Head and face: No puffiness, atraumatic Eyes: No scleral icterus, extraocular movements normal Neck: Supple, no JVD Musculoskeletal: No acute joint swelling, no bony abnormalities Skin/dermatologic/integument: No rash, no purpura Hematologic and lymphatic: pallor +, no petechia Gastrointestinal/abdomen: Nondistended, soft, nonacute Neurologic: Cranial nerves intact, nonfocal Cardiovascular: Heart rhythm regular, no rub, no murmur, no gallop Respiratory: Chest movements equal, no use of accessory muscles, no adventitious sounds Extremities: No edema, no cyanosis Results & Data Results & Data ([facility]) Vital Signs (Past 12 Hours) Vital Signs Temp Pulse Resp BP Pulse Ox 08/07/21 11:14 36.6 C 64 18 120/52 L 96 08/07/21 09:58 68 16 93 08/07/21 09:04 66 24 111/63 94 08/07/21 07:49 36.5 C 72 20 128/70 97 08/07/21 06:57 72 16 88 L PG Care Time/CCT Total # of Minutes Spent Total Time Spent with Patient: Total time spent is greater than 50% in coordination of care (as documented) at patient's floor/unit and/or counseling patient: Coding Level of Care Code 34129 Subseq Hosp Care Lvl 2 Diagnoses Acute and chronic respiratory failure J96.20 Acute heart failure with preserved ejection fraction I50.31 Visual hallucinations R44.1 Atrial fibrillation I48.91 Atrial fibrillation type: unspecified Diabetes mellitus E11.9 Chronic lymphocytic leukemia C91.10 Depression F32.A (1) Atrial fibrillation Atrial fibrillation type: unspecified Qualified Code(s): I48.91 - Unspecified atrial fibrillation
--- NOTE | 2021-08-07 18:24 | XRay Report ---
XR chest 1V portable HISTORY: 89 years-old Male aspiration acute shortness of breath COMPARISON: 08/05/2021 chest radiograph, CT chest 08/02/2021 TECHNIQUE: Portable AP view of the chest FINDINGS: The cardiac silhouette is enlarged. Prior median sternotomy. No pneumothorax. Left greater than right layering pleural effusions. Progressively worsened bilateral mixed interstitial and alveolar opaciti es. Left hemidiaphragmatic elevation is again noted. Degenerative changes of the shoulders and spine. IMPRESSION: 1. Cardiomegaly with progressively worsened mixed interstitial and alveolar opacities suggestive of p ulmonary edema versus multifocal pneumonia. 2. Left hemidiaphragmatic elevation with layering pleural effusions. ACT 112: Negative or not required by law. The above report was generated using voice recognition software. It may contain grammatical, syntax o r spelling errors. Electronically signed by: Jerry Osman M.D. 08/07/2021 6:23 PM
[2021-08-07] MEDS: PARoxetine HCL 10 MG TAB PO SCH (20:21)
[2021-08-07] MEDS: SENNA 8.6 MG TAB PO SCH (20:21)
[2021-08-07] MEDS: POTASSIUM CHLORIDE CRTAB 20 MEQ TABCR PO SCH (20:27)
[2021-08-07] MEDS: acetaZOLAMIDE 250 MG TAB PO SCH (20:28)
[2021-08-07] MEDS: FUROSEMIDE 40 MG/4 ML VIAL IV SCH (20:28)
[2021-08-08 06:46] LABS: Albumin Globulin Ratio 1.3 (0.9-2); Albumin Level 3.5 gm/dl (3.4-5.0); BUN Creatinine Ratio 35.7 (10-20); Bilirubin,Total 0.9 mg/dl (0.2-1.0); Calcium 8.5 mg/dl (8.5-10.1); Creatinine Clr Calc Pharmacy 43.4 ml/min; Est GFR (African American) 58.2 ml/min; Est GFR (Non-African American) 50.2 ml/min; Globulin 2.7 gm/dl (2.5-4.0); Magnesium 2.2 mg/dl (1.7-2.4); Potassium 3.9 mmol/L (3.5-5.1); Total Protein 6.2 gm/dl (6.0-8.3)
[2021-08-08 06:48] LABS: Hematocrit (blood only) 34.8 % (42-52); Hemoglobin 10.7 g/dL (14.0-18.0); Mean Corpuscular Hemoglobin 30.7 pg (25-34); Mean Corpuscular Hgb Conc 30.7 g/dL (32-36); Mean Corpuscular Volume 99.7 fL (80-100); Mean Platelet Volume 9.9 fL (7.4-10.4); Platelet Count 154 K/uL (130-400); RDW Coefficient of Variation 17.2 % (11.5-14.5); Red Blood Count 3.49 M/uL (4.7-6.1); White Blood Count 45.85 K/uL (4.8-10.8)
[2021-08-08 07:02] LABS: ALC (manual) 32.05 K/uL (1.2-3.4); ANC (manual) 13.39 K/uL (1.4-6.5); Lymphocytes # (manual) 32.05 K/uL (1.2-3.4); Lymphocytes % (manual) 69.9 %; Monocytes # (manual) 0.41 K/uL (0.11-0.59); Monocytes % (manual) 0.9 %; Neutrophils # (manual) 13.39 K/uL (1.4-6.5); Neutrophils % (manual) 29.2 %
[2021-08-08] MEDS: ALBUT/IPRATROP 3MG/0.5MG NEB 3 ML VIAL NEB SCH ×4 (07:11→19:56)
[2021-08-08] MEDS: INSULIN ASPART PER UNIT SC SCH ×4 (08:03→20:21)
[2021-08-08] MEDS: INSULIN GLARGINE SOLOSTAR 100 UNITS/ML 3 ML PEN SC SCH (08:04)
[2021-08-08] MEDS: methylPREDNISolone 20 MG in SYRINGE 0 ML IV SCH (08:04)
[2021-08-08] MEDS: POTASSIUM CHLORIDE CRTAB 20 MEQ TABCR PO SCH ×2 (08:08→20:18)
[2021-08-08] MEDS: METOPROLOL TARTRATE 25 MG TAB PO SCH (08:08)
[2021-08-08] MEDS: TAMSULOSIN HCL 0.4 MG CAP PO SCH (08:08)
[2021-08-08] MEDS: THIAMINE HCL 100 MG TAB PO SCH (08:08)
[2021-08-08] MEDS: FINASTERIDE 5 MG TAB PO SCH (08:09)
[2021-08-08] MEDS: ASPIRIN 81 MG ECTAB PO SCH (08:09)
[2021-08-08] MEDS: CYANOCOBALAMIN 1000 MCG/ML VIAL IM SCH (08:09)
[2021-08-08] MEDS: acetaZOLAMIDE 250 MG TAB PO SCH ×2 (08:09→20:17)
[2021-08-08] MEDS: HEPARIN SOD 5,000 UNIT/0.5 ML VIAL SQ SCH ×2 (08:10→20:16)
[2021-08-08] MEDS: FUROSEMIDE 40 MG/4 ML VIAL IV SCH ×2 (08:10→20:19)
--- NOTE | 2021-08-08 08:54 | Hospitalist Progress Note ---
Date of Service August 08, 2021 Assessment & Plan (1) Acute and chronic respiratory failure: Plan: Probably multifactorial but at present appears primarily CHF Diurese; await cardiology input Scheduled bronchodilation BiPAP while napping or sleeping. 16/11, wean O2 to aim O2 sats 88-92% Some question of possible choking eventspeech reeval -pulmonary note noted; trilogy at discharge; NIV here as allow allows and tolerated (2) Acute heart failure with preserved ejection fraction: Plan: Lasix and acetazolamide; doing better; await cardiology input as above (3) Visual hallucinations: Plan: Doing better, observe (4) Atrial fibrillation: Plan: Patient with rate controlled atrial fibrillation with metoprolol. Patient had a watchman's procedure in [facility] and is not on chronic anticoagulation. Rate 70-90s on telemetry (5) Diabetes mellitus: Plan: Sugars reasonably acceptablefollow; no change in long-term insulin management (6) Chronic lymphocytic leukemia: Plan: WBC up, lymphocyte predominance; nothing to suggest acute bacterial infectionfollow (7) Depression: Plan: Patient has seen our psychiatric liaison's in the past and they recommended mirtazapine and melatonin. Switch back to Paxil due to possibility of mirtazapine causing visual hallucinations Hold further sedating medications at the present time. Plan: Vang removed VTE Prophylaxis - heparin 5000 units BID Diet - low Na, T2DM Disposition - Continue on PCU Updated daughter Admission and Anticipated Discharge Date Admission Date: August 01, 2021 Subjective Follow-up of presentation with respiratory failure; yesterday more hypoxic, some question of choking; today doing better; baseline oxygen requirement about 2.5 Physical Exam Physical Exam: Constitutional and general: No acute distress as such but looks chronically ill looks biologic age Confused Head and face: No puffiness, atraumatic Eyes: No scleral icterus, extraocular movements normal Neck: Supple, no JVD Musculoskeletal: No acute joint swelling, no bony abnormalities Skin/dermatologic/integument: No rash, no purpura Hematologic and lymphatic: pallor +, no petechia Gastrointestinal/abdomen: Nondistended, soft, nonacute Neurologic: Cranial nerves intact, nonfocal Cardiovascular: Heart rhythm regular, no rub, soft systolic murmur no gallop Respiratory: Chest movements equal, no use of accessory muscles, bilateral mild wheezing; decreased breath sounds at base Extremities: edema +, no cyanosis Results & Data Results & Data ([facility]) Vital Signs (Past 12 Hours) Vital Signs Temp Pulse Pulse Resp BP Pulse Ox 08/08/21 08:08 35.8 C L 87 18 117/65 96 08/08/21 07:12 84 18 99 08/08/21 03:10 79 23 94 08/08/21 03:00 36.6 C 60 18 129/68 98 08/07/21 23:43 95 H 08/07/21 22:00 36.8 C 45 L 18 135/84 95 08/07/21 21:56 89 27 H 95 Laboratory Results Laboratory Results - last 24 hr 08/07/21 08/07/21 08/07/21 11:17 16:07 20:03 WBC RBC Hgb Hct MCV MCH MCHC RDW Std Deviation RDW Coeff of Eladio Plt Count MPV Neutrophils % (Manual) Lymphocytes % (Manual) Monocytes % (Manual) Neutrophils # (Manual) Total Absolute Neuts Lymphocytes # (Manual) Total Abs Lymphocytes Monocytes # (Manual) Sodium Potassium Chloride Carbon Dioxide Anion Gap BUN Creatinine Est Cr Clr Drug Dosing Est GFR ( Amer) Est GFR (Non-Af Amer) BUN/Creatinine Ratio Glucose POC Glucose 239 H 152 H 231 H Calcium Magnesium Total Bilirubin AST ALT Alkaline Phosphatase Total Protein Albumin Globulin Albumin/Globulin Ratio 08/08/21 08/08/21 08/08/21 05:52 05:52 07:41 WBC 45.85 H* RBC 3.49 L Hgb 10.7 L Hct 34.8 L MCV 99.7 MCH 30.7 MCHC 30.7 L RDW Std Deviation 62.0 H RDW Coeff of Eladio 17.2 H Plt Count 154 MPV 9.9 Neutrophils % (Manual) 29.2 Lymphocytes % (Manual) 69.9 Monocytes % (Manual) 0.9 Neutrophils # (Manual) 13.39 H Total Absolute Neuts 13.39 H Lymphocytes # (Manual) 32.05 H Total Abs Lymphocytes 32.05 H Monocytes # (Manual) 0.41 Sodium 140 Potassium 3.9 Chloride 100 Carbon Dioxide 37 H Anion Gap 3 BUN 45 H Creatinine 1.26 Est Cr Clr Drug Dosing 43.4 Est GFR ( Amer) 58.2 Est GFR (Non-Af Amer) 50.2 BUN/Creatinine Ratio 35.7 H Glucose 95 POC Glucose 112 H Calcium 8.5 Magnesium 2.2 Total Bilirubin 0.9 AST 20 ALT 19 Alkaline Phosphatase 70 Total Protein 6.2 Albumin 3.5 Globulin 2.7 Albumin/Globulin Ratio 1.3 PG Care Time/CCT Total # of Minutes Spent Total Time Spent with Patient: Total time spent is greater than 50% in coordination of care (as documented) at patient's floor/unit and/or counseling patient: Coding Level of Care Code 12184 Subseq Hosp Care Lvl 2 Diagnoses Acute and chronic respiratory failure J96.20 Acute heart failure with preserved ejection fraction I50.31 Visual hallucinations R44.1 Atrial fibrillation I48.91 Atrial fibrillation type: unspecified Diabetes mellitus E11.9 Chronic lymphocytic leukemia C91.10 Depression F32.A (1) Atrial fibrillation Atrial fibrillation type: unspecified Qualified Code(s): I48.91 - Unspecified atrial fibrillation
--- NOTE | 2021-08-08 13:17 | Cardiology Consultation ---
Date of Consultation August 08, 2021 Assessment & Plan (1) Acute heart failure with preserved ejection fraction: (2) Atrial fibrillation: (3) CAD (coronary artery disease): (4) Nonsustained ventricular tachycardia: 1. Pulmonary edema: His volume status has been somewhat difficult to sort out, during his admission in May it was not clear, when he came in this time I think he was in congestive heart failure with an elevated weight as well as worsening shortness of breath. Today he does not seem to be in a lot of heart failure and does not have edema. His BUN is somewhat elevated out of proportion to his creatinine. I suspect he is more or less euhydrated, I would probably aim to keep his weight about where it is now and see how he does as an outpatient since he seems to be comfortable and not short of breath. 2. Atrial fibrillation: His atrial fibrillation has been well controlled on his current regimen and I would continue it. He is not on an anticoagulant which is acceptable with his watchman in place. 3. Coronary disease: He carries a diagnosis of coronary disease although I am not sure how that was identified and how severe it is. He is asymptomatic and I would not pursue invasive evaluation. 4. Ventricular ectopy: He has frequent premature ventricular beats and brief nonsustained ventricular tachycardia. 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 I would consider changing this to metoprolol succinate daily, perhaps a 25 mg dose to start, and watch for bradycardia but I do not believe his heart rate is low enough to be of concern. He was requesting to go home, from my standpoint I think he can and if desired we could set him up in our heart failure area to help maintain his fluid status. History of Present Illness Reason for Consultation: Shortness of breath Attending Physician: Noreen Mckenna MD History of Present Illness This is an 89-year-old male who has a history of CLL, anemia, hyperlipidemia, diabetes mellitus, as well as coronary disease and atrial fibrillation. He contracted COVID-19 in the beginning of May 2021, was briefly evaluated in the emergency room but sent home on supplemental oxygen. He then had worsening of his shortness of breath and difficulty with speech and was admitted due to his Covid 19 diagnosis in mid May 2021. I have not seen prior records but he does have a history of atrial fibrillation and he did have a watchman placed in [place] and therefore is not on anticoagulation. He has had frequent ventricular ectopy including ventricular tachycardia, on May 16, 2021 at 1423 he had a 22 beat run of ventricular tachycardia. It appeared monomorphic and the rate was about 150 bpm. Evaluation here was suggestive of pulmonary edema, his chest x-ray showed interstitial thickening and small bilateral pleural effusions. His BNP was elevated to about the same level both on May 06, 2021 and May 15, 2021 (2391 and 2499 respectively). An echocardiogram done May 17, 2021 shows normal left ventricular size with mild concentric left ventricular hypertrophy and a mildly reduced ejection fraction of 45 to 50%. He had aortic sclerosis without stenosis and mild to moderate pulmonary hypertension. He was discharged on May 19, 2021 but return to the emergency room May 27, 2021 which shortness of breath this was felt to be due to pneumonia and he was treated with antibiotics and released from the emergency room. He then presented June 12, 2021 with dyspnea, felt to be due to acute on chronic congestive heart failure as well as post Covid pulmonary issues. He was discharged 2 days later. He then presented to the emergency room on August 01, 2021 with shortness of breath and hypoxia and required BiPAP. A repeat echocardiogram was similar to May 2021 with an ejection fraction of 50 to 55%. He has remained in the hospital and the thought is that he may have congestive heart failure. He presented with a weight which was substantially higher this admission then on his May admission, and he has diuresed substantially here and his weight is now similar to what it was in May. His BNP was somewhat elevated on August 01, 2021 although substantially lower than it was in May. His chest x-ray initially was not clearly pulmonary edema, although more recently it is sugg estive of that. His creatinine is not elevated although his BUN has increased somewhat this admission. Allergies Allergy/AdvReac Type Severity Reaction Status Date / Time No Known Allergies Allergy Verified 08/01/21 09:55 Home Medications Medication Instructions Recorded Confirmed Type allopurinol 300 mg tablet 300 mg PO QAM 05/15/21 08/01/21 History aspirin 81 mg tablet,delayed 81 mg PO QAM 05/15/21 08/01/21 History release atorvastatin 20 mg tablet 20 mg PO HS 05/15/21 08/01/21 History docusate sodium 100 mg capsule 100 mg PO BID PRN 05/15/21 08/01/21 History (Colace) finasteride 5 mg tablet 5 mg PO QAM 05/15/21 08/01/21 History furosemide 40 mg tablet 40 mg PO BID17 05/15/21 08/01/21 History metformin 500 mg tablet 500 mg PO QAM 05/15/21 08/01/21 History metoprolol tartrate 25 mg tablet 12.5 mg PO QAM 05/15/21 08/01/21 History nitroglycerin 0.4 mg sublingual 0.4 mg SUBLINGUAL UD PRN 05/15/21 08/01/21 History tablet (Nitrostat) sennosides 8.6 mg tablet (senna) 17.2 mg PO HS 05/15/21 08/01/21 History tamsulosin 0.4 mg capsule 0.4 mg PO QAM 05/15/21 08/01/21 History thiamine HCl (vitamin B1) 100 mg 100 mg PO QAM 05/15/21 08/01/21 History tablet albuterol sulfate 2.5 mg INHALATION Q4 PRN 06/12/21 08/01/21 History melatonin 3 mg tablet 3 mg PO HS PRN #30 tab 06/14/21 08/01/21 Rx paroxetine HCl 10 mg tablet 10 mg PO HS 08/01/21 08/01/21 History Patient History Medical History Abnormal CT scan, chest Atrial fibrillation BPH w urinary obs/LUTS CAD (coronary artery disease) CHF (congestive heart failure) Complicated bereavement Constipation Diabetes mellitus Gout Hyperlipidemia LDL goal <70 Hypertension Insomnia Metabolic alkalosis Presence of Watchman left atrial appendage closure device Social History Smoking Status: Former smoker Tobacco Type: Cigarettes Second Hand Exposure: No; Do You Dip or Chew Tobacco: No; Tobacco Cessation Education Requested by Patient: No Hx Alcohol Use: Yes Alcohol type: other Hx Substance Use: No Preferred Language: Persian Communication Ability: Effective Elementary Principal Required: No Beliefs That Will Affect Care: None and Uatsdin Uatsdin Beliefs: Romanian Gnosticism marital status: / Current Living Situation: Family Current Living Situation Comment: W/ family support. Other Information That Helps Us Care for You: No Feels Safe at Home: Yes Safety Concerns: Feels Safe At This Time Assistive Devices: BiPap and Oxygen - Continuous Review of Systems Review of Systems: Unobtainable due to cognitive status (Although he does answer questions I am not sure how reliable his memory is) Physical Exam Physical Exam: Constitutional: Alert, cooperative and in no distress. He appears comfortable laying supine in bed. HEENT: Unremarkable Neck: No jugular venous distention, carotid pulses are irregular but otherwise normal and equal bilaterally without bruits. Pulmonary: Basilar crackles and decreased breath sounds throughout bilaterally. Cardiac: Irregular rhythm with no murmur, gallop or rub. Abdomen: Soft, nontender with normal bowel sounds. Extremities: No edema. Distal pulses intact. Neurologic: No focal findings. Gait was not tested. Skin: No rash or petechiae, he does have some ecchymosis on his legs. Results & Data ([facility]) Vital Signs (Past 12 Hours) Vital Signs Temp Pulse Pulse Resp BP Pulse Ox 08/08/21 12:10 36.4 C L 78 18 111/72 96 08/08/21 10:51 79 18 96 08/08/21 08:08 35.8 C L 87 18 117/65 96 08/08/21 07:12 84 18 99 08/08/21 03:10 79 23 94 08/08/21 03:00 36.6 C 60 18 129/68 98 Laboratory Results Cardiac Enzymes 08/08/21 Range/Units 05:52 AST 20 (13-39) U/L CBC 08/08/21 Range/Units 05:52 WBC 45.85 H* (4.8-10.8) K/uL RBC 3.49 L (4.7-6.1) M/uL Hgb 10.7 L (14.0-18.0) g/dL Hct 34.8 L (42-52) % Plt Count 154 (130-400) K/uL Comprehensive Metabolic Panel 08/08/21 Range/Units 05:52 Sodium 140 (136-145) mmol/L Potassium 3.9 (3.5-5.1) mmol/L Chloride 100 (98-107) mmol/L Carbon Dioxide 37 H (21-32) mmol/L BUN 45 H (6-23) mg/dl Creatinine 1.26 (0.6-1.4) mg/dl Glucose 95 (70-99(Fasting)) mg/dl Calcium 8.5 (8.5-10.1) mg/dl AST 20 (13-39) U/L ALT 19 (7-52) U/L Alkaline Phosphatase 70 (34-104) U/L Total Protein 6.2 (6.0-8.3) gm/dl Albumin 3.5 (3.4-5.0) gm/dl Intake and Output 08/07/21 08/08/21 08/08/21 22:59 06:59 14:59 Intake Total 500 / 920 200 / 920 Output Total 1800 / 3200 900 / 3200 925 / 925 Balance -1300 / -2280 -700 / -2280 -925 / -925 Intake: Oral 500 / 920 200 / 920 Output: Urine 1350 / 2250 900 / 2250 925 / 925 Urine Amount (Catheter) 450 / 950 Vang/Indwelling 450 / 950 Other: Weight 90.5 kg Weight Measurement Method Built in [facility] Diagnostic Findings Telemetry: Atrial fibrillation, rate is acceptable. Frequent PVCs, 3-4 beat runs of nonsustained ventricular tachycardia occasionally. PG Care Time/CCT Total # of Minutes Spent Total Time Spent with Patient: Total time spent is greater than 50% in coordination of care (as documented) at patient's floor/unit and/or counseling patient: Coding Level of Care Code 68054 Initial Inpt Care Lvl 3 Diagnoses Acute heart failure with preserved ejection fraction I50.31 Atrial fibrillation I48.91 Atrial fibrillation type: unspecified CAD (coronary artery disease) I25.10 Coronary Disease-Associated Artery/Lesion type: unspecified vessel or lesion type [place] vs. transplanted heart: [place] heart Associated angina: without angina Nonsustained ventricular tachycardia I47.2 (1) Atrial fibrillation Atrial fibrillation type: unspecified Qualified Code(s): I48.91 - Unspecified atrial fibrillation (2) CAD (coronary artery disease) Coronary Disease-Associated Artery/Lesion type: unspecified vessel or lesion type [place] vs. transplanted heart: [place] heart Associated angina: without angina Qualified Code(s): I25.10 - Atherosclerotic heart disease of [place] coronary artery without angina pectoris
--- NOTE | 2021-08-08 14:37 | Pharmacy Report ---
Pharmacy Glycemic Short Note 2 - Date of Service August 08, 2021 - Glycemic Short BSG Results (Last 24 hours): 08/07/21 08/07/21 08/08/21 16:07 20:03 05:52 Glucose 95 POC Glucose 152 H 231 H 08/08/21 08/08/21 07:41 11:23 Glucose POC Glucose 112 H 135 H OUTPATIENT ANTIDIABETIC REGIMEN: * Metformin 500mg PO qAM * HbA1c 6.7% on 08/02/21 ASSESSMENT: 08/08/21: * Lantus dose reduced this morning for fasting BSGs trending down and below goal. * Novolog parameters adjusted this morning for better control throughout the day. * Pt remains on SoluMedrol 20mg IV daily. Expect that insulin requirements will decrease when steroids are discontinued. Will need to adjust insulin regimen accordingly to avoid hypoglycemia. 08/06 * Patient's BSGs yesterday were 06-87-75-103 mg/dL. Patient received 10 units of Lantus. * Fasting today is 128 mg/dL. * Patient changed back to Solu-Medrol 20 mg IV BID. * Will increase Lantus to 15 units again as steroids increased and diet has improved. * Continue Novolog. 08/05 * Patient's BSGs yesterday were 325-778-932-106 mg/dL. Fasting today was 83 mg/dL with a lunch BSG of 88 mg/dL. * Patient received 29 units of insulin yesterday (15 units of basal and 14 units of bolus). * Steroids changed to Solu-Medrol 20 mg IV daily. * Decrease Lantus to 10 units. * Continue Novolog weight-based stress of 3. PLAN FOR INPATIENT GLYCEMIC CONTROL: * Hold outpatient metformin * Basal insulin * Lantus 10 units SQ daily (15 units for BSG > 180mg/dL) * Bolus insulin * NovoLog per scale ACHS or Q6hrs while NPO * Goal Range: Low 110 mg/dL - High 140 mg/dL * Correction Factor: 25 mg/dL/unit * Nutritional / Prandial insulin per carb ratio of 1 unit per 5 grams CHO consumed
[2021-08-08] MEDS: PARoxetine HCL 10 MG TAB PO SCH (20:17)
[2021-08-08] MEDS: SENNA 8.6 MG TAB PO SCH (20:18)
[2021-08-09] MEDS: ALBUT/IPRATROP 3MG/0.5MG NEB 3 ML VIAL NEB SCH ×4 (07:03→19:50)
[2021-08-09 07:14] LABS: Hematocrit (blood only) 33.4 % (42-52); Hemoglobin 10.4 g/dL (14.0-18.0); Mean Corpuscular Hgb Conc 31.1 g/dL (32-36); Mean Corpuscular Volume 99.4 fL (80-100); Mean Platelet Volume 10.6 fL (7.4-10.4); Platelet Count 147 K/uL (130-400); RDW Coefficient of Variation 17.2 % (11.5-14.5); Red Blood Count 3.36 M/uL (4.7-6.1); White Blood Count 49.25 K/uL (4.8-10.8)
[2021-08-09 07:23] LABS: Albumin Globulin Ratio 1.2 (0.9-2); Albumin Level 3.3 gm/dl (3.4-5.0); BUN Creatinine Ratio 40.8 (10-20); Bilirubin,Total 0.7 mg/dl (0.2-1.0); Calcium 7.7 mg/dl (8.5-10.1); Creatinine Clr Calc Pharmacy 45.6 ml/min; Est GFR (African American) 61.8 ml/min; Est GFR (Non-African American) 53.3 ml/min; Globulin 2.7 gm/dl (2.5-4.0); Magnesium 2.2 mg/dl (1.7-2.4); Potassium 3.9 mmol/L (3.5-5.1)
[2021-08-09 07:33] LABS: ALC (manual) 38.96 K/uL (1.2-3.4); ANC (manual) 9.85 K/uL (1.4-6.5); Lymphocytes # (manual) 38.96 K/uL (1.2-3.4); Lymphocytes % (manual) 79.1 %; Monocytes # (manual) 0.44 K/uL (0.11-0.59); Monocytes % (manual) 0.9 %; Neutrophils # (manual) 9.85 K/uL (1.4-6.5)
[2021-08-09] MEDS: INSULIN ASPART PER UNIT SC SCH ×4 (08:58→20:53)
[2021-08-09] MEDS ORDERED: INSULIN GLARGINE SOLOSTAR 100 UNITS/ML 3 ML PEN SC SCH ×3 (09:00)
[2021-08-09] MEDS: THIAMINE HCL 100 MG TAB PO SCH (09:01)
[2021-08-09] MEDS: FINASTERIDE 5 MG TAB PO SCH (09:01)
[2021-08-09] MEDS: acetaZOLAMIDE 250 MG TAB PO SCH ×2 (09:01→20:59)
[2021-08-09] MEDS: TAMSULOSIN HCL 0.4 MG CAP PO SCH (09:01)
[2021-08-09] MEDS: ASPIRIN 81 MG ECTAB PO SCH (09:01)
[2021-08-09] MEDS: POTASSIUM CHLORIDE CRTAB 20 MEQ TABCR PO SCH ×2 (09:01→21:01)
[2021-08-09] MEDS: FUROSEMIDE 40 MG/4 ML VIAL IV SCH (09:02)
[2021-08-09] MEDS: METOPROLOL TARTRATE 25 MG TAB PO SCH (09:02)
[2021-08-09] MEDS: CYANOCOBALAMIN 1000 MCG/ML VIAL IM SCH (09:03)
[2021-08-09] MEDS: HEPARIN SOD 5,000 UNIT/0.5 ML VIAL SQ SCH ×3 (09:03→22:00)
--- NOTE | 2021-08-09 09:52 | Hospitalist Progress Note ---
Date of Service August 09, 2021 Assessment & Plan (1) Acute and chronic respiratory failure: Plan: Probably multifactorial but at present appears primarily CHF Appears betterswitch to p.o. Lasix CT chest to better define pulmonary infiltrates and pleural effusion Speech communicated with me yesterday and put specific instructionif recurrent choking-like events they will address further - trilogy at discharge; NIV here as allow allows and tolerated (2) Acute heart failure with preserved ejection fraction: Plan: Switch to p.o. Lasix; otherwise no change (3) Visual hallucinations: Plan: Doing better, observe; no delirium when I saw him however, as explained to family can fluctuate (4) Atrial fibrillation: Plan: Patient with rate controlled atrial fibrillation with metoprolol. Patient had a watchman's procedure in [facility] and is not on chronic anticoagulation. (5) Diabetes mellitus: Plan: Sugars reasonably acceptableno change (6) Chronic lymphocytic leukemia: Plan: WBC further up; clinically nothing to suggest acute bacterial infection; however, oncology input, procalcitoninhold off antibiotic coverage (7) Depression: Plan: Patient has seen our psychiatric liaison's in the past and they recommended mirtazapine and melatonin. Switch back to Paxil due to possibility of mirtazapine causing visual hallucinations Hold further sedating medications at the present time. Plan: VTE Prophylaxis - heparin 5000 units BID Diet - low Na, T2DM Disposition - Continue on PCU Updated daughter Admission and Anticipated Discharge Date Admission Date: August 01, 2021 Subjective Follow-up of presentation with respiratory failure; no new clinical issues reported as such by nursing; he had no complaints; did wear NIV at night according to nursing Physical Exam Physical Exam: Constitutional and general: No acute distress as such but looks chronically ill looks biologic age Confused Head and face: No puffiness, atraumatic Eyes: No scleral icterus, extraocular movements normal Neck: Supple, no JVD; dark area of bridge of nose appears better Musculoskeletal: No acute joint swelling, no bony abnormalities Skin/dermatologic/integument: No rash, no purpura Hematologic and lymphatic: pallor +, no petechia Gastrointestinal/abdomen: Nondistended, soft, nonacute Neurologic: Cranial nerves intact, nonfocal Cardiovascular: Heart rhythm irregular, no rub, soft systolic murmur, no gallop Respiratory: Chest movements equal, no use of accessory muscles, ; decreased breath sounds at base Extremities: edema +, no cyanosis Results & Data Results & Data ([facility]) Vital Signs (Past 12 Hours) Vital Signs Temp Pulse Pulse Resp BP Pulse Ox 08/09/21 07:28 36.7 C 66 17 133/72 97 08/09/21 07:03 54 L 17 97 08/09/21 02:57 36.7 C 67 20 128/56 L 97 08/08/21 23:00 36.6 C 79 20 99/56 L 96 08/08/21 22:29 58 L 27 H 93 Laboratory Results Laboratory Results - last 24 hr 08/08/21 08/08/21 08/08/21 11:23 16:33 20:05 WBC RBC Hgb Hct MCV MCH MCHC RDW Std Deviation RDW Coeff of Eladio Plt Count MPV Neutrophils % (Manual) Lymphocytes % (Manual) Monocytes % (Manual) Neutrophils # (Manual) Total Absolute Neuts Lymphocytes # (Manual) Total Abs Lymphocytes Monocytes # (Manual) Sodium Potassium Chloride Carbon Dioxide Anion Gap BUN Creatinine Est Cr Clr Drug Dosing Est GFR ( Amer) Est GFR (Non-Af Amer) BUN/Creatinine Ratio Glucose POC Glucose 135 H 139 H 210 H Calcium Magnesium Total Bilirubin AST ALT Alkaline Phosphatase B-Natriuretic Peptide Total Protein Albumin Globulin Albumin/Globulin Ratio 08/09/21 08/09/21 08/09/21 06:21 06:21 06:21 WBC 49.25 H* RBC 3.36 L Hgb 10.4 L Hct 33.4 L MCV 99.4 MCH 31.0 MCHC 31.1 L RDW Std Deviation 62.0 H RDW Coeff of Eladio 17.2 H Plt Count 147 MPV 10.6 H Neutrophils % (Manual) 20.0 Lymphocytes % (Manual) 79.1 Monocytes % (Manual) 0.9 Neutrophils # (Manual) 9.85 H Total Absolute Neuts 9.85 H Lymphocytes # (Manual) 38.96 H Total Abs Lymphocytes 38.96 H Monocytes # (Manual) 0.44 Sodium 139 Potassium 3.9 Chloride 101 Carbon Dioxide 35 H Anion Gap 3 BUN 49 H Creatinine 1.20 Est Cr Clr Drug Dosing 45.6 Est GFR ( Amer) 61.8 Est GFR (Non-Af Amer) 53.3 BUN/Creatinine Ratio 40.8 H Glucose 120 H POC Glucose Calcium 7.7 L Magnesium 2.2 Total Bilirubin 0.7 AST 18 ALT 21 Alkaline Phosphatase 69 B-Natriuretic Peptide 151 H Total Protein 6.0 Albumin 3.3 L Globulin 2.7 Albumin/Globulin Ratio 1.2 08/09/21 07:27 WBC RBC Hgb Hct MCV MCH MCHC RDW Std Deviation RDW Coeff of Eladio Plt Count MPV Neutrophils % (Manual) Lymphocytes % (Manual) Monocytes % (Manual) Neutrophils # (Manual) Total Absolute Neuts Lymphocytes # (Manual) Total Abs Lymphocytes Monocytes # (Manual) Sodium Potassium Chloride Carbon Dioxide Anion Gap BUN Creatinine Est Cr Clr Drug Dosing Est GFR ( Amer) Est GFR (Non-Af Amer) BUN/Creatinine Ratio Glucose POC Glucose 133 H Calcium Magnesium Total Bilirubin AST ALT Alkaline Phosphatase B-Natriuretic Peptide Total Protein Albumin Globulin Albumin/Globulin Ratio PG Care Time/CCT Total # of Minutes Spent Total Time Spent with Patient: Total time spent is greater than 50% in coordination of care (as documented) at patient's floor/unit and/or counseling patient: Coding Level of Care Code 43199 Subseq Hosp Care Lvl 2 Diagnoses Acute and chronic respiratory failure J96.20 Acute heart failure with preserved ejection fraction I50.31 Visual hallucinations R44.1 Atrial fibrillation I48.91 Atrial fibrillation type: unspecified Diabetes mellitus E11.9 Chronic lymphocytic leukemia C91.10 Depression F32.A (1) Atrial fibrillation Atrial fibrillation type: unspecified Qualified Code(s): I48.91 - Unspecified atrial fibrillation
--- NOTE | 2021-08-09 12:18 | CT Scan Report ---
CT chest diagnostic wo con CT DOSE: 389.87 mGy.cm HISTORY: Acute shortness of breath. Infiltrates, pleural effusion TECHNIQUE: Multiaxial CT images of the chest were performed without contrast. A dose lowering techni que was utilized adhering to the principles of ALARA. COMPARISON: Chest CTA 08/02/2021. FINDINGS: Trace mucoid material within the trachea and right mainstem bronchus. Remaining central air ways appear patent. No pneumothorax. Small bilateral pleural fusions have improved. Patchy groundglas s densities in interlobular septal thickening and improved. This suggests resolving pulmonary edema. There is respiratory motion artifact. Right lower lobe basilar consolidation has significantly improv ed in the interval. This likely represents resolving atelectasis/pneumonia. There is persistent conso lidation within the base of the left lower lobe which favors compressive atelectasis from the pleural effusion and elevated left hemidiaphragm. There are poststernotomy changes. There are old, healed ri ght-sided rib fractures. No acute fractures within the chest. Old mild compression deformity at T3 re berkley unchanged. Limited views the upper abdomen demonstrate a normal liver and spleen. The esophagus is unremarkable. The heart remains enlarged. Atrial septal closure device and a mitral valve prosthe sis are again noted. There is also a metallic device within the left atrial appendage, unchanged. The coronary arteries remain calcified. Mild calcified plaque within the normal caliber thoracic aorta. No mediastinal or hilar lymphadenopathy. IMPRESSION: 1. Interval improvement in the pulmonary edema and small bilateral pleural effusions. 2. Bibasilar airspace opacities have also improved. This favors resolving atelectasis or pneumonia. 3. Stable cardiomegaly. 4. Additional findings as described above. ACT 112: Negative or not required by law. Electronically signed by: Austin Reyna M.D. 08/09/2021 12:17 PM
--- NOTE | 2021-08-09 13:07 | Cardiology Progress Note ---
Date of Service August 09, 2021 Assessment & Plan (1) Acute heart failure with preserved ejection fraction: (2) Atrial fibrillation: (3) CAD (coronary artery disease): (4) Nonsustained ventricular tachycardia: Plan: 1. Pulmonary edema: His volume status has been somewhat difficult to sort out, during his admission in May it was not clear, when he came in this time I think he was in congestive heart failure with an increased weight as well as worsening shortness of breath. Today he does not seem to be in a lot of heart failure and does not have edema. His BUN is somewhat elevated out of proportion to his creatinine. I suspect he is more or less euhydrated, I would probably aim to keep his weight about where it is now and see how he does as an outpatient since he seems to be comfortable and not short of breath. 2. Atrial fibrillation: His atrial fibrillation has been well controlled on his current regimen and I would continue it. He is not on an anticoagulant which is acceptable with his watchman in place. 3. Coronary disease: He carries a diagnosis of coronary disease although I am not sure how that was identified and how severe it is. He is asymptomatic and I would not pursue invasive evaluation. 4. Ventricular ectopy: He has frequent premature ventricular beats and brief nonsustained ventricular tachycardia. Ideally he would be on higher doses of beta-blockade, it appears that the most frequent PVCs occur in the cane weigher hours when he would not be covered by a beta-pamela since he is on metoprolol tartrate once daily. I would consider changing this to metoprolol succinate daily, perhaps a 25 mg dose to start, and watch for bradycardia but I do not believe his heart rate is low enough to be of concern. When he goes home I will arrange follow-up in our heart failure clinic for next week, and we will follow him in the office subsequently. Admission and Anticipated Discharge Date Admission Date: August 01, 2021 Subjective He tells me that he is feeling better today, he says he is not short of breath. He also told me he could walk around without difficulty and talking to the nurses it sounds as though that is not true although he is doing better and can ambulate with a walker without shortness of breath. He can lay supine without looking short of breath. I did discuss his situation with his daughter who is from [place] yesterday including plans to have him seen in heart failure clinic and in our office subsequently. Physical Exam Physical Exam: Constitutional: Alert, cooperative and in no distress. He appears comfortable laying supine in bed. HEENT: Unremarkable Neck: No jugular venous distention, carotid pulses are irregular but otherwise normal and equal bilaterally without bruits. Pulmonary: Basilar crackles and decreased breath sounds throughout bilaterally. Cardiac: Irregular rhythm with no murmur, gallop or rub. Abdomen: Soft, nontender with normal bowel sounds. Extremities: No edema. Distal pulses intact. Neurologic: No focal findings. Gait was not tested. Skin: No rash or petechiae, he does have some ecchymosis on his legs. Results & Data ([facility]) Vital Signs (Past 12 Hours) Vital Signs Temp Pulse Pulse Pulse Resp BP Pulse Ox 08/09/21 12:00 36.6 C 55 L 16 112/69 98 08/09/21 11:24 64 18 98 08/09/21 09:00 68 08/09/21 07:28 36.7 C 66 17 133/72 97 08/09/21 07:03 54 L 17 97 08/09/21 02:57 36.7 C 67 20 128/56 L 97 Laboratory Results Cardiac Enzymes 08/09/21 08/09/21 Range/Units 06:21 06:21 AST 18 (13-39) U/L B-Natriuretic Peptide 151 H (0-100) pg/ml Coagulation 08/09/21 Range/Units 06:21 B-Natriuretic Peptide 151 H (0-100) pg/ml CBC 08/09/21 Range/Units 06:21 WBC 49.25 H* (4.8-10.8) K/uL RBC 3.36 L (4.7-6.1) M/uL Hgb 10.4 L (14.0-18.0) g/dL Hct 33.4 L (42-52) % Plt Count 147 (130-400) K/uL Comprehensive Metabolic Panel 08/09/21 Range/Units 06:21 Sodium 139 (136-145) mmol/L Potassium 3.9 (3.5-5.1) mmol/L Chloride 101 (98-107) mmol/L Carbon Dioxide 35 H (21-32) mmol/L BUN 49 H (6-23) mg/dl Creatinine 1.20 (0.6-1.4) mg/dl Glucose 120 H (70-99(Fasting)) mg/dl Calcium 7.7 L (8.5-10.1) mg/dl AST 18 (13-39) U/L ALT 21 (7-52) U/L Alkaline Phosphatase 69 (34-104) U/L Total Protein 6.0 (6.0-8.3) gm/dl Albumin 3.3 L (3.4-5.0) gm/dl Intake and Output 08/08/21 08/09/21 08/09/21 22:59 06:59 14:59 Intake Total 300 / 1095 200 / 1095 Output Total 900 / 3225 1400 / 3225 Balance -600 / -2130 -1200 / -2130 Intake: Oral 300 / 1095 200 / 1095 Output: Urine 900 / 3225 1400 / 3225 Other: Weight 90.6 kg Weight Measurement Method Built in [facility] Diagnostic Findings Telemetry: Atrial fibrillation with a controlled heart rate. Frequent PVCs at times. PG Care Time/CCT Total # of Minutes Spent Total Time Spent with Patient: Total time spent is greater than 50% in coordination of care (as documented) at patient's floor/unit and/or counseling patient: Coding Level of Care Code 55056 Subseq Hosp Care Lvl 2 Diagnoses Acute heart failure with preserved ejection fraction I50.31 Atrial fibrillation I48.91 Atrial fibrillation type: unspecified CAD (coronary artery disease) I25.10 Associated angina: without angina Coronary Disease-Associated Artery/Lesion type: unspecified vessel or lesion type [place] vs. transplanted heart: [place] heart Nonsustained ventricular tachycardia I47.2 (1) CAD (coronary artery disease) Associated angina: without angina Coronary Disease-Associated Artery/Lesion type: unspecified vessel or lesion type [place] vs. transplanted heart: [place] heart Qualified Code(s): I25.10 - Atherosclerotic heart disease of [place] coronary artery without angina pectoris (2) Atrial fibrillation Atrial fibrillation type: unspecified Qualified Code(s): I48.91 - Unspecified atrial fibrillation
[2021-08-09] MEDS: FUROSEMIDE 40 MG TAB PO SCH (17:40)
[2021-08-09] MEDS: SENNA 8.6 MG TAB PO SCH (21:00)
[2021-08-09] MEDS: PARoxetine HCL 10 MG TAB PO SCH (21:01)
[2021-08-10] MEDS: HEPARIN SOD 5,000 UNIT/0.5 ML VIAL SQ SCH ×3 (05:43→20:22)
[2021-08-10 06:14] LABS: Hematocrit (blood only) 34.8 % (42-52); Hemoglobin 10.6 g/dL (14.0-18.0); Mean Corpuscular Hemoglobin 30.2 pg (25-34); Mean Corpuscular Hgb Conc 30.5 g/dL (32-36); Mean Corpuscular Volume 99.1 fL (80-100); Mean Platelet Volume 10.7 fL (7.4-10.4); Platelet Count 159 K/uL (130-400); RDW Coefficient of Variation 17.4 % (11.5-14.5); RDW Standard Deviation 62.4 fL (36.4-46.3); Red Blood Count 3.51 M/uL (4.7-6.1); White Blood Count 53.79 K/uL (4.8-10.8)
[2021-08-10 06:18] LABS: ALC (manual) 43.46 K/uL (1.2-3.4); ANC (manual) 9.36 K/uL (1.4-6.5); Eosinophils # (manual) 0.48 K/uL (0-0.5); Eosinophils % (manual) 0.9 %; Lymphocytes # (manual) 43.46 K/uL (1.2-3.4); Lymphocytes % (manual) 80.8 %; Monocytes # (manual) 0.48 K/uL (0.11-0.59); Monocytes % (manual) 0.9 %; Neutrophils # (manual) 9.36 K/uL (1.4-6.5); Neutrophils % (manual) 17.4 %; RBC Morphology Unremarkable
[2021-08-10 06:28] LABS: Albumin Globulin Ratio 1.3 (0.9-2); Albumin Level 3.3 gm/dl (3.4-5.0); BUN Creatinine Ratio 33.6 (10-20); Bilirubin,Total 0.7 mg/dl (0.2-1.0); Calcium 8.5 mg/dl (8.5-10.1); Creatinine Clr Calc Pharmacy 43.7 ml/min; Est GFR (African American) 58.8 ml/min; Est GFR (Non-African American) 50.7 ml/min; Globulin 2.6 gm/dl (2.5-4.0); Total Protein 5.9 gm/dl (6.0-8.3)
[2021-08-10] MEDS: ALBUT/IPRATROP 3MG/0.5MG NEB 3 ML VIAL NEB SCH ×4 (07:06→19:34)
[2021-08-10] MEDS: ASPIRIN 81 MG ECTAB PO SCH (08:40)
[2021-08-10] MEDS: FINASTERIDE 5 MG TAB PO SCH (08:41)
[2021-08-10] MEDS: THIAMINE HCL 100 MG TAB PO SCH (08:41)
[2021-08-10] MEDS: acetaZOLAMIDE 250 MG TAB PO SCH (08:41)
[2021-08-10] MEDS: TAMSULOSIN HCL 0.4 MG CAP PO SCH (08:41)
[2021-08-10] MEDS: METOPROLOL TARTRATE 25 MG TAB PO SCH (08:41)
[2021-08-10] MEDS: FUROSEMIDE 40 MG TAB PO SCH ×2 (08:41→17:22)
[2021-08-10] MEDS: POTASSIUM CHLORIDE CRTAB 20 MEQ TABCR PO SCH ×2 (08:41→20:21)
[2021-08-10] MEDS: CYANOCOBALAMIN 1000 MCG/ML VIAL IM SCH (08:42)
[2021-08-10] MEDS: INSULIN ASPART PER UNIT SC SCH ×4 (09:05→20:21)
--- NOTE | 2021-08-10 10:00 | Hospitalist Progress Note ---
Date of Service August 10, 2021 Assessment & Plan (1) Acute and chronic respiratory failure: Plan: Probably multifactorial but at present appears primarily CHF Appears better, on p.o. Lasix; stop acetazolamide - trilogy at dischargeCase day spa manager working on same (2) Acute heart failure with preserved ejection fraction: Plan: Improved, as above (3) Atrial fibrillation: Plan: Rate control acceptable; no change patient had a watchman's procedure in [facility] and is not on chronic anticoagulation. (4) Diabetes mellitus: Plan: Sugars reasonably acceptableno change (5) Chronic lymphocytic leukemia: Plan: WBC further up; oncology communicatedDr. Anthony; they recommended nothing to offer [id number] follow-up with his oncologist sooner rather than later; communicated with family (6) Depression: Plan: Patient has seen our psychiatric liaison's in the past and they recommended mirtazapine and melatonin. Switch back to Paxil due to possibility of mirtazapine causing visual hallucinations Hold further sedating medications at the present time. (7) Delirium: Plan: Essentially resolved with very minor confusionfollow; might do better after going home Plan: VTE Prophylaxis - heparin 5000 units BID Diet - low Na, T2DM Disposition -ready for discharge when trilogy arranged; discussed recommendations for rehabthey want to go home with 24-hour supervision Updated daughter Admission and Anticipated Discharge Date Admission Date: August 01, 2021 Subjective Follow-up of presentation with shortness of breath; doing much bettermaybe even better than baseline Physical Exam Physical Exam: Constitutional and general: No acute distress as such but looks chronically ill looks biologic age Confused Head and face: No puffiness, atraumatic Eyes: No scleral icterus, extraocular movements normal Neck: Supple, no JVD; dark area of bridge of nose appears better Musculoskeletal: No acute joint swelling, no bony abnormalities Skin/dermatologic/integument: No rash, no purpura Hematologic and lymphatic: pallor +, no petechia Gastrointestinal/abdomen: Nondistended, soft, nonacute Neurologic: Cranial nerves intact, nonfocal Cardiovascular: Heart rhythm irregular, no rub, soft systolic murmur, no gallop Respiratory: Chest movements equal, no use of accessory muscles, ; decreased breath sounds at base Extremities: edema +, no cyanosis Results & Data Results & Data ([facility]) Vital Signs (Past 12 Hours) Vital Signs Temp Pulse Pulse Resp BP BP Pulse Ox 08/10/21 07:38 36.4 C L 55 L 18 115/50 L 98 08/10/21 07:06 72 17 97 08/10/21 03:35 36.4 C L 61 18 101/56 L 93 08/10/21 03:10 61 20 93 08/10/21 00:00 80 08/09/21 23:52 36.4 C L 55 L 18 113/68 97 08/09/21 22:22 56 L 18 96 Laboratory Results Laboratory Results - last 24 hr 08/09/21 08/09/21 08/09/21 09:42 11:45 16:31 WBC RBC Hgb Hct MCV MCH MCHC RDW Std Deviation RDW Coeff of Eladio Plt Count MPV Neutrophils % (Manual) Lymphocytes % (Manual) Monocytes % (Manual) Eosinophils % (Manual) Neutrophils # (Manual) Total Absolute Neuts Lymphocytes # (Manual) Total Abs Lymphocytes Monocytes # (Manual) Eosinophils # (Manual) RBC Morphology Sodium Potassium Chloride Carbon Dioxide Anion Gap BUN Creatinine Est Cr Clr Drug Dosing Est GFR ( Amer) Est GFR (Non-Af Amer) BUN/Creatinine Ratio Glucose POC Glucose 163 H 73 Calcium Magnesium Total Bilirubin AST ALT Alkaline Phosphatase Total Protein Albumin Globulin Albumin/Globulin Ratio Procalcitonin 0.07 08/09/21 08/10/21 08/10/21 20:15 05:23 05:23 WBC 53.79 H* RBC 3.51 L Hgb 10.6 L Hct 34.8 L MCV 99.1 MCH 30.2 MCHC 30.5 L RDW Std Deviation 62.4 H RDW Coeff of Eladio 17.4 H Plt Count 159 MPV 10.7 H Neutrophils % (Manual) 17.4 Lymphocytes % (Manual) 80.8 Monocytes % (Manual) 0.9 Eosinophils % (Manual) 0.9 Neutrophils # (Manual) 9.36 H Total Absolute Neuts 9.36 H Lymphocytes # (Manual) 43.46 H Total Abs Lymphocytes 43.46 H Monocytes # (Manual) 0.48 Eosinophils # (Manual) 0.48 RBC Morphology Unremarkable Sodium 137 Potassium 4.0 Chloride 102 Carbon Dioxide 30 Anion Gap 5 BUN 42 H Creatinine 1.25 Est Cr Clr Drug Dosing 43.7 Est GFR ( Amer) 58.8 Est GFR (Non-Af Amer) 50.7 BUN/Creatinine Ratio 33.6 H Glucose 109 H POC Glucose 135 H Calcium 8.5 Magnesium 2.0 Total Bilirubin 0.7 AST 19 ALT 24 Alkaline Phosphatase 69 Total Protein 5.9 L Albumin 3.3 L Globulin 2.6 Albumin/Globulin Ratio 1.3 Procalcitonin 08/10/21 07:19 WBC RBC Hgb Hct MCV MCH MCHC RDW Std Deviation RDW Coeff of Eladio Plt Count MPV Neutrophils % (Manual) Lymphocytes % (Manual) Monocytes % (Manual) Eosinophils % (Manual) Neutrophils # (Manual) Total Absolute Neuts Lymphocytes # (Manual) Total Abs Lymphocytes Monocytes # (Manual) Eosinophils # (Manual) RBC Morphology Sodium Potassium Chloride Carbon Dioxide Anion Gap BUN Creatinine Est Cr Clr Drug Dosing Est GFR ( Amer) Est GFR (Non-Af Amer) BUN/Creatinine Ratio Glucose POC Glucose 109 H Calcium Magnesium Total Bilirubin AST ALT Alkaline Phosphatase Total Protein Albumin Globulin Albumin/Globulin Ratio Procalcitonin PG Care Time/CCT Total # of Minutes Spent Total Time Spent with Patient: Total time spent is greater than 50% in coordination of care (as documented) at patient's floor/unit and/or counseling patient: Coding Level of Care Code 94894 Subseq Hosp Care Lvl 2 Diagnoses Acute and chronic respiratory failure J96.20 Acute heart failure with preserved ejection fraction I50.31 Atrial fibrillation I48.91 Atrial fibrillation type: unspecified Diabetes mellitus E11.9 Chronic lymphocytic leukemia C91.10 Depression F32.A Delirium R41.0 (1) Atrial fibrillation Atrial fibrillation type: unspecified Qualified Code(s): I48.91 - Unspecified atrial fibrillation
--- NOTE | 2021-08-10 11:41 | Pharmacy Report ---
Pharmacy Glycemic Short Note 2 - Date of Service August 10, 2021 - Glycemic Short BSG Results (Last 24 hours): 08/09/21 08/09/21 08/09/21 11:45 16:31 20:15 Glucose POC Glucose 163 H 73 135 H 08/10/21 08/10/21 08/10/21 05:23 07:19 11:20 Glucose 109 H POC Glucose 109 H 141 H OUTPATIENT ANTIDIABETIC REGIMEN: * Metformin 500mg PO qAM * HbA1c 6.7% on 08/02/21 ASSESSMENT: 08/10 * Steroids discontinued on 08/08 * BSGs well-controlled since then, ranging 73-163 mg/dL * Patient received 24 units of insulin yesterday, 8 units of basal and 16 units of prandial/correctional bolus * Fasting BSG of 109 mg/dL this morning, will hold off on basal insulin this morning and utilize scale this evening if needed * Novolog parameters loosened now that steroids discontinued 08/08 * Lantus dose reduced this morning for fasting BSGs trending down and below goal. * Novolog parameters adjusted this morning for better control throughout the day. * Pt remains on SoluMedrol 20mg IV daily. Expect that insulin requirements will decrease when steroids are discontinued. Will need to adjust insulin regimen accordingly to avoid hypoglycemia. 08/06 * Patient's BSGs yesterday were 59-70-98-103 mg/dL. Patient received 10 units of Lantus. * Fasting today is 128 mg/dL. * Patient changed back to Solu-Medrol 20 mg IV BID. * Will increase Lantus to 15 units again as steroids increased and diet has improved. * Continue Novolog. 08/05 * Patient's BSGs yesterday were [phone] mg/dL. Fasting today was 83 mg/dL with a lunch BSG of 88 mg/dL. * Patient received 29 units of insulin yesterday (15 units of basal and 14 units of bolus). * Steroids changed to Solu-Medrol 20 mg IV daily. * Decrease Lantus to 10 units. * Continue Novolog weight-based stress of 3. PLAN FOR INPATIENT GLYCEMIC CONTROL: * Hold outpatient metformin * Basal insulin * Lantus 0-5 units SC HS * Bolus insulin * NovoLog per scale ACHS or Q6hrs while NPO * Goal Range: Low 110 mg/dL - High 140 mg/dL * Correction Factor: 30 mg/dL/unit * Nutritional / Prandial insulin per carb ratio of 1 unit per 10 grams CHO consumed
--- NOTE | 2021-08-10 13:32 | Pulmonology Progress Note ---
Date of Service August 10, 2021 Assessment & Plan (1) Acute on chronic respiratory failure with hypercapnia: Plan: Patient with component of interstitial lung disease noted on CT scan and chest x-rays going back several years Patient presented in May was found to have COVID-19. Since that time, patient has had respiratory failure and hypercapnia. Baseline oxygen requirements are supplemental at 2 to 3 L/min via nasal cannula Patient admitted this. With acute altered mental status. It appears as though that was secondary to hypercapnia with an elevated PCO2. Patient placed on BiPAP and seemed to tolerate mask and do well. PCO2 initially 93 mmHg on admission. 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 27 minutes spent in discussion with daughter and 15 minutes in discussion with patient regarding need for compliance with BiPAP. I also scall case management and discussed outpatient plan I also called DME senior internet sales consultant for [facility] to discussed post hospital care Patient was unable to tolerate an in lab polysomnography in the past due to claustrophobia and At this time, will continue patient on BiPAP at bedtime and as needed at 16/6 [facility] will do a home visit on discharge for BiPAP training and instruction at home as well as to adjust settings on BiPAP Continue supplemental oxygen to maintain SaO2 greater than 90% Patient to follow-up with Dr. Lopez in the outpatient clinic in the next 4 to 6 weeks. (2) Hypoxia: Plan: Hypoxia is also likely multifactorial related to diastolic heart failure, possible component of ILD, recovering from recent Covid illness and possible neuromuscular disease leading to hypoventilation. Consider outpatient neurological work-up CT of the chest with motion artifact and small pleural effusions and atelectasis. No masses or significant consolidations Outpatient follow-up with Dr. Lopez in the clinic (3) CHF (congestive heart failure): Plan: Patient with chronic atrial fibrillation Congestive heart failure with preserved left ventricular ejection fraction Follows with cardiology Diurese as tolerated Heart failure chronicity: acute on chronic Heart failure type: unspecified Qualified Code(s): I50.9 - Heart failure, unspecified (4) Pulmonary edema: Plan: Continue to diurese per cardiology Continue positive air pressure ventilation at night and as tolerated during the day Follow-up with DME provider on discharge for BiPAP compliance Chronicity: acute Qualified Code(s): J81.0 - Acute pulmonary e clemente (5) Metabolic alkalosis: Plan: Completed a total of 4 doses of acetazolamide Consider pulmonary function testing when at baseline (6) Abnormal CT scan, chest: Plan: Past history of tobacco abuse. Patient quit smoking at age 52 (39 years ago) Not a candidate for further screening Motion artifact, small pleural effusions, atelectasis noted Continue positive air pressure at night and during the day Patient having difficulty with coordination for incentive spirometry Outpatient follow-up in the clinic Plan: Okay to be discharged from a pulmonary perspective. Having set up with [facility] for post discharge care. Oxygen is available at the home. BiPAP is at the home. Family working on 24-hour care for the patient at home. They prefer not to use rehab or [facility] facility if possible. Resuscitation status: Discussion with daughter Jillian on risk versus benefit of ACLS resuscitation. At this time, they would like to continue full resuscitation measures and take the opportunity to discuss it as a family with the patient at home. Thank you very much for including us in the care of this patient. We will sign off at this time. Please feel free to call with any questions regarding post discharge plan. Admission and Anticipated Discharge Date Admission Date: August 01, 2021 Subjective Patient seen and examined in room 241. He continues to have some decreased breath sounds on the left as well as some crackles. Patient has been using his BiPAP machine with settings 16/6. Patient has a BiPAP at home with settings 12/6. Since receiving the BiPAP in June, compliance report shows that he has not even turn the machine on. In discussion with his daughter, she reports that he does not like the mask and was not willing to try it. Long discussion with patient today (15 minutes). He recognizes the improvement that he has had using the BiPAP here and it appears as though he is using it nightly. He is willing to try the BiPAP on discharge. I explained to him that there are multiple forms of masks and that we can adjust based on comfort so is better tolerated. I also called the DME supplier ([facility]) and put an Rx on the chart for follow-up on discharge at home for BiPAP instructions and fitting. Long discussion with patient's daughter Jillian (26 minutes) by telephone and explained plan to her. At this time she recognizes that patient should have overnight care to monitor BiPAP and assist with mask. Patient has chronically had hypercapnia since admission. It is suspected that this is led to his altered mental status as his cognition has improved since being here this admission. Daughter and patient understand that positive air pressure is the only alternative to treat the hypercapnia at this time. It is suspected the patient's respiratory status is significantly changed since having COVID-19. He now requires supplemental oxygen at 2.5 to 3 L/min . He also requires positive air pressure for hypercapnia. In previous notes this admission, it was discussed that patient may benefit by using trilogy/AVAPS. At this time we will hold on prescribing that until we see if patient can tolerate BiPAP at home. Patient denies any acute shortness of breath today. He is oxygenating well with 3 L/min via nasal cannula. He has no fever, chills, sweats, rigors. He denies any respiratory distress. He appears oriented and has no conversational dyspnea. Review of Systems Review of Systems: All systems reviewed & are unremarkable except as noted in Subjective Physical Exam Physical Exam: GENERAL : No acute distress. Sitting in bedside chair. Communication appropriate. No conversational dyspnea. EYES: No icterus, gaze conjugate NOSE: No evidence of epistaxis. Nasal cannula in place MOUTH: No lesions or candidiasis. Mucosa moist NECK: Supple LUNGS: Slightly decreased breath sounds at the left base. Some crackles bilat erally. No rhonchi or significant bronchospasm. HEART: Irregular, irregular. Heart rate controlled in the 60s ABDOMEN: Soft, NT, ND, BS Present EXTREMITIES: Bilateral +1 LE edema, pedal pulses intact NEURO: A&OX3. Conversation appropriate. Behavior appropriate. Results & Data Results & Data ([facility]) Vital Signs (Past 12 Hours) Vital Signs Temp Pulse Pulse Resp BP BP Pulse Ox 08/10/21 11:48 36.5 C 57 L 20 114/55 L 94 08/10/21 11:01 62 18 97 08/10/21 07:38 36.4 C L 55 L 18 115/50 L 98 08/10/21 07:06 72 17 97 08/10/21 03:35 36.4 C L 61 18 101/56 L 93 08/10/21 03:10 61 20 93 Critical Care Results & Data Vital Signs (Past 12 Hours) Vital Signs Temp Pulse Pulse Resp BP BP Pulse Ox 08/10/21 11:48 36.5 C 57 L 20 114/55 L 94 08/10/21 11:01 62 18 97 08/10/21 07:38 36.4 C L 55 L 18 115/50 L 98 08/10/21 07:06 72 17 97 08/10/21 03:35 36.4 C L 61 18 101/56 L 93 08/10/21 03:10 61 20 93 Lab & Micro Results (Past 24 Hours) RBC 3.51 M/uL (4.7-6.1) L 08/10/21 WBC 53.79 K/uL (4.8-10.8) H* 08/10/21 Hgb 10.6 g/dL (14.0-18.0) L 08/10/21 Hct 34.8 % (42-52) L 08/10/21 MCV 99.1 fL (80-100) 08/10/21 MCH 30.2 pg (25-34) 08/10/21 MCHC 30.5 g/dL (32-36) L 08/10/21 RDW Standard Deviation 62.4 fL (36.4-46.3) H 08/10/21 RDW Coefficient of Variation 17.4 % (11.5-14.5) H 08/10/21 Plt Count 159 K/uL (130-400) 08/10/21 MPV 10.7 fL (7.4-10.4) H 08/10/21 ANC 9.36 K/uL (1.4-6.5) H 08/10/21 ALC 43.46 K/uL (1.2-3.4) H 08/10/21 Neutrophils % (Manual) 17.4 % 08/10/21 Lymphocytes % (Manual) 80.8 % 08/10/21 Monocytes % (Manual) 0.9 % 08/10/21 Eosinophils % (Manual) 0.9 % 08/10/21 Neutrophils # (Manual) 9.36 K/uL (1.4-6.5) H 08/10/21 Lymphocytes # (Manual) 43.46 K/uL (1.2-3.4) H 08/10/21 Monocytes # (Manual) 0.48 K/uL (0.11-0.59) 08/10/21 Eosinophils # (Manual) 0.48 K/uL (0-0.5) 08/10/21 Red Blood Cell Morphology Unremarkable 08/10/21 Na 137 mmol/L (136-145) 08/10/21 K 4.0 mmol/L (3.5-5.1) 08/10/21 Cl 102 mmol/L (98-107) 08/10/21 CO2 30 mmol/L (21-32) 08/10/21 Anion Gap 5 (3-11) 08/10/21 BUN 42 mg/dl (6-23) H 08/10/21 Creatinine 1.25 mg/dl (0.6-1.4) 08/10/21 Estimated GFR ( Amer) 58.8 ml/min 08/10/21 Estimated GFR (Non-Af Amer) 50.7 ml/min 08/10/21 BUN/Creatinine Ratio 33.6 (10-20) H 08/10/21 Glu 109 mg/dl (70-99(Fasting)) H 08/10/21 Ca 8.5 mg/dl (8.5-10.1) 08/10/21 Total Bilirubin 0.7 mg/dl (0.2-1.0) 08/10/21 AST 19 U/L (13-39) 08/10/21 ALT 24 U/L (7-52) 08/10/21 Alkaline Phosphatase 69 U/L (34-104) 08/10/21 TP 5.9 gm/dl (6.0-8.3) L 08/10/21 Albumin 3.3 gm/dl (3.4-5.0) L 08/10/21 Globulin 2.6 gm/dl (2.5-4.0) 08/10/21 Albumin/Globulin Ratio 1.3 (0.9-2) 08/10/21 Mg 2.0 mg/dl (1.7-2.4) 08/10/21 05:23 08/10/21 Calcium Level 8.5 mg/dl (8.5-10.1) 08/10/21 05:23 08/10/21 Microbiology 08/05/21 11:00 Aerobic Blood Culture - Final Blood No growth in Aerobic bottle after 5 days. Anaerobic Blood Culture - Final No growth in Anaerobic bottle after 5 days. 08/05/21 10:45 Aerobic Blood Culture - Final Blood No growth in Aerobic bottle after 5 days. Anaerobic Blood Culture - Final No growth in Anaerobic bottle after 5 days. Diagnostic Findings (Past 24 Hours) CT chest diagnostic wo con CT DOSE: 389.87 mGy.cm HISTORY: Acute shortness of breath. Infiltrates, pleural effusion TECHNIQUE: Multiaxial CT images of the chest were performed without contrast. A dose lowering technique was utilized adhering to the principles of ALARA. COMPARISON: Chest CTA 08/02/2021. FINDINGS: Trace mucoid material within the trachea and right mainstem bronchus. Remaining central airways appear patent. No pneumothorax. Small bilateral pleural fusions have improved. Patchy groundglass densities in interlobular septal thickening and improved. This suggests resolving pulmonary edema. There is respiratory motion artifact. Right lower lobe basilar consolidation has significantly improved in the interval. This likely represents resolving atelectasis/pneumonia. There is persistent consolidation within the base of the left lower lobe which favors compressive atelectasis from the pleural effusion and elevated left hemidiaphragm. There are poststernotomy changes. There are old, healed right-sided rib fractures. No acute fractures within the chest. Old mild compression deformity at T3 remains unchanged. Limited views the upper abdomen demonstrate a normal liver and spleen. The esophagus is unremarkable. The heart remains enlarged. 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 There is also a metallic device within the left atrial appendage, unchanged. The coronary arteries remain calcified. Mild calcified plaque within the normal caliber thoracic aorta. No mediastinal or hilar lymphadenopathy. IMPRESSION: 1. Interval improvement in the pulmonary edema and small bilateral pleural effusions. 2. Bibasilar airspace opacities have also improved. This favors resolving a telectasis or pneumonia. 3. Stable cardiomegaly. 4. Additional findings as described above. ACT 112: Negative or not required by law. Electronically signed by: Austin Reyna M.D. 08/09/2021 12:17 PM I & O Totals 24 Hours 08/09/21 08/10/21 08/11/21 06:59 06:59 06:59 Intake Total 1095 / 1095 500 / 500 Output Total 3225 / 3225 1175 / 1175 Balance -2130 / -2130 -675 / -675 Cumulative 08/01/21 09:02 thru 08/10/21 06:17 Intake Total 6802.500 Output Total 61371 Balance -07650.500 RT Ventilator Mngmt (Last Documented) Ventilator Ordered Settings Respiratory Rate 20 08/10/21 11:48 Fraction of Inspired Oxygen 2 08/09/21 12:00 Ventilator - PT Measurements Respiratory Rate 20 PG Care Time/CCT Total # of Minutes Spent Total Time Spent with Patient: Total time spent is greater than 50% in coordination of care (as documented) at patient's floor/unit and/or counseling patient: 70 minutes including discussion with daughter by phone (26 minutes), interview and physical examination with patient (15 minutes), discussion with DME provider/[facility] (8 minutes), chart review, preparation of note, discussion with Dr. Hayden regarding care plan, coordination with case management for discharge. 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
[2021-08-10] MEDS: SENNA 8.6 MG TAB PO SCH (20:23)
[2021-08-10] MEDS: PARoxetine HCL 10 MG TAB PO SCH (20:24)
[2021-08-10] MEDS ORDERED: INSULIN GLARGINE SOLOSTAR 100 UNITS/ML 3 ML PEN SC SCH (21:00)
[2021-08-11] MEDS: HEPARIN SOD 5,000 UNIT/0.5 ML VIAL SQ SCH (06:18)
[2021-08-11] MEDS: ALBUT/IPRATROP 3MG/0.5MG NEB 3 ML VIAL NEB SCH ×2 (07:17→10:43)
[2021-08-11] MEDS: INSULIN ASPART PER UNIT SC SCH ×2 (08:06→12:18)
[2021-08-11] MEDS: ASPIRIN 81 MG ECTAB PO SCH (08:57)
[2021-08-11] MEDS: FUROSEMIDE 40 MG TAB PO SCH (08:58)
[2021-08-11] MEDS: FINASTERIDE 5 MG TAB PO SCH (08:58)
[2021-08-11] MEDS: METOPROLOL TARTRATE 25 MG TAB PO SCH (08:59)
[2021-08-11] MEDS: POTASSIUM CHLORIDE CRTAB 20 MEQ TABCR PO SCH (09:00)
[2021-08-11] MEDS ORDERED: INSULIN GLARGINE SOLOSTAR 100 UNITS/ML 3 ML PEN SC SCH (09:00)
[2021-08-11] MEDS ORDERED: CYANOCOBALAMIN (B-12) 500 MCG TABLET PO SCH (09:00)
[2021-08-11] MEDS: TAMSULOSIN HCL 0.4 MG CAP PO SCH (09:00)
[2021-08-11] MEDS: THIAMINE HCL 100 MG TAB PO SCH (09:01)
[2021-08-11 09:11] LABS: Calcium 7.6 mg/dl (8.5-10.1); Creatinine Clr Calc Pharmacy 48.3 ml/min; Est GFR (African American) 66.4 ml/min; Est GFR (Non-African American) 57.3 ml/min
--- NOTE | 2021-08-11 09:27 | Discharge Summary ---
Date of Service August 11, 2021 Admission HPI Per Admitting Provider Mr. Moncada is an 89-year-old male discharge in June after COPD exacerbation also treated in the fall for Covid pneumonia patient represents an acute respiratory distress with tachypnea and found to be hypercarbic on ABG. Patient was prescribed BiPAP on his last admission however his daughter states he is having challenges wearing it at home. Patient also suffers from frequent nocturnal restlessness and then sleeps throughout the day. Patient's had no infectious symptoms such as fever or productive cough. Patient's daughter states he has taken all of his medications typically has not had any increasing salty foods has not complained of any chest pain or palpitations. Daughter also states that at home he had challenges with controlling his blood glucoses and he only takes Metformin on a typical day. in the ER the patient is extremely hard of hearing he does have some memory impairment and history was obtained through his daughter who is his constant caregiver. He was retested in the ER and found to be Covid negative. His chest x-ray shows groundglass opacities which could be reminiscent of his previous Covid infection or perhaps mild fluid overload. In summary, primarily admitted with respiratory distress-see problem list Principal Diagnosis Respiratory failure Discharge Exam Constitutional and general: No acute distress as such but looks chronically ill looks biologic age Confused Head and face: No puffiness, atraumatic Eyes: No scleral icterus, extraocular movements normal Neck: Supple, no JVD; dark area of bridge of nose appears better Musculoskeletal: No acute joint swelling, no bony abnormalities Skin/dermatologic/integument: No rash, no purpura Hematologic and lymphatic: pallor +, no petechia Gastrointestinal/abdomen: Nondistended, soft, nonacute Neurologic: Cranial nerves intact, nonfocal Cardiovascular: Heart rhythm irregular, no rub, soft systolic murmur, no gallop Respiratory: Chest movements equal, no use of accessory muscles, ; decreased breath sounds at base Extremities: edema +, no cyanosis Vital Signs Temp Pulse Pulse Resp BP BP Pulse Ox 08/11/21 07:37 36.7 C 60 16 101/57 L 94 08/11/21 07:17 60 18 95 08/11/21 03:26 36.4 C L 53 L 18 105/52 L 94 08/11/21 02:40 24 91 08/10/21 23:27 36.7 C 75 18 117/62 92 08/10/21 23:24 85 08/10/21 22:52 82 26 H 92 08/10/21 19:35 61 18 92 08/10/21 19:30 36.8 C 71 18 101/58 L 86 L 08/10/21 16:02 36.7 C 52 L 18 105/69 96 08/10/21 16:00 66 08/10/21 14:36 16 98 08/10/21 11:48 36.5 C 57 L 20 114/55 L 94 08/10/21 11:01 62 18 97 Intake and Output 08/10/21 08/11/21 08/11/21 22:59 06:59 14:59 Intake Total 880 / 1275 395 / 1275 Output Total 350 / 350 Balance 880 / 925 45 / 925 Intake: Oral 880 / 1275 395 / 1275 Output: Urine 350 / 350 Other: Weight 90.2 kg Weight Measurement Method Built in [facility] Discharge Data Allergies Allergy/AdvReac Type Severity Reaction Status Date / Time No Known Allergies Allergy Verified 08/01/21 09:55 Consultations 08/01/21 10:34 ED Decision to Admit Stat 08/02/21 17:46 Consult Pulmonology Routine 08/07/21 18:47 Consult Cardiology Routine Ordered Studies 08/02/21 17:38 CT angio chest PE protocol Routine 08/04/21 08:56 CT head/brain wo con Stat 08/09/21 09:34 CT chest diagnostic wo con Urgent Hospital Course (1) Acute on chronic respiratory failure with hypercapnia: Suspect multifactorialpost Covid, acute diastolic heart failure See pulmonary note below: Patient with component of interstitial lung disease noted on CT scan and chest x-rays going back several years Patient presented in May was found to have COVID-19. Since that time, patient has had respiratory failure and hypercapnia. Baseline oxygen requirements are supplemental at 2 to 3 L/min via nasal cannula Patient admitted this. With acute altered mental status. It appears as though that was secondary to hypercapnia with an elevated PCO2. Patient placed on BiPAP and seemed to tolerate mask and do well. PCO2 initially 93 mmHg on admission. 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 27 minutes spent in discussion with daughter and 15 minutes in discussion with patient regarding need for compliance with BiPAP. I also scall case management and discussed outpatient plan I also called DME sales team leader for [facility] to discussed post hospital care Patient was unable to tolerate an in lab polysomnography in the past due to claustrophobia and At this time, will continue patient on BiPAP at bedtime and as needed at 16/6 [facility] will do a home visit on discharge for BiPAP training and instruction at home as well as to adjust settings on BiPAP Continue supplemental oxygen to maintain SaO2 greater than 90% Patient to follow-up with Dr. Lopez in the outpatient clinic in the next 4 to 6 weeks. (2) Hypoxia: Hypoxia is also likely multifactorial related to diastolic heart failure, possible component of ILD, recovering from recent Covid illness and possible neuromuscular disease leading to hypoventilation. Consider outpatient neurological work-up (defer to PCP-this is based on pulmonary note, I see no evidence of anything overt) CT of the chest with motion artifact and small pleural effusions and atelectasis. No masses or significant consolidations Outpatient follow-up with Dr. Lopez in the clinic (3) CHF (congestive heart failure): Patient with chronic atrial fibrillation Congestive heart failure with preserved left ventricular ejection fraction Follow with cardiology ct Lasix; KCL 20 meq qd (4) Abnormal CT scan, chest: Past history of tobacco abuse. Patient quit smoking at age 52 (39 years ago) Not a candidate for further screening Motion artifact, small pleural effusions, atelectasis noted Continue positive air pressure at night and during the day Patient having difficulty with coordination for incentive spirometry Outpatient follow-up in the clinic (5) Chronic lymphocytic leukemia: Trend of rising WBC count; oncology was consulted but they reviewed chart and stated they do not need to see him and recommend early outpatient follow-up with his oncologist (6) Delirium: Improved (7) DM II (diabetes mellitus, type II), controlled: Continue home regiment at discharge; A1c less than 7 on presentation (8) Atrial fibrillation: Good rate control; status post [place] on anticoagulation (9) Anemia: B12 level borderline; initiated on p.o. B12 after IM [id number] be followed Total Time Total Time Spent Total Time Spent (In Minutes): 40 Discharge Plan Discharge Items Patient Disposition: Home - Home Health Services Reason For Visit: ILLNESS Discharge Diagnosis: Acute on chronic respiratory failure Condition on Discharge: Fair Activity: As commented below Activity Comment: as tolerated Non-emergency contact: Primary Care Provider and Hand Candle Molder Call non-emergency contact if: your symptoms worsen Follow-up/Referrals: Piotr Johnson MD [Physician] - (1 to 2 weeks) Brett Lopez MD [Physician] - (2 weekspost discharge follow-up) Saida Marin PA-C [Physician Station Operator] - 08/15/21 2:00 pm (Congestive Heart Failure Program Appointment Information Early follow up is essential to managing your heart failure. An appointment has been scheduled for you with the [facility] within 7 days of discharge. Anticipate this visit to be 30-60 minutes long. Please expect a business intern phone call from one of our nurses approximately 48 hours from discharge. They will also be placing an order for lab work to be completed 1-2 days prior to your heart failure follow up appointment. Please be sure to have this done so we can go over the results when you come in. Office Location The cardiology office building is located in front of the hospital at [address] [facility]. Bring the following with you to your follow-up doctor appointments: Please bring your daily weight log any discharge paperwork all of your medication bottles with you to this visit. ) Kendell Posada DO [Primary Care Provider] - 08/16/21 11:00 am Diet: Carb Consistent or DM2 and Heart Healthy Addtl Attending Provider Instructions: Follow-up with your oncologist as soon as possible; use your BiPAP as instructed Addtl Gore Stitcher Provider Instructions: Call your Primary Care doctor if any of the following symptoms or problems start or get worse: * Shortness of breath or difficulty breathing * Wake up at night short of breath * Chest pain * Cough * Swelling of your hands, feet, or legs * More fatigued or tired with your normal activity * Palpitations - sudden fast heart beats WEIGHT * Weigh yourself every morning after using the bathroom. * Use the same scale. * Wear the same amount of clothing. * Write your weight down on a chart. * Call your Primary Care doctor if you gain more than 2-3 pounds in 1-2 days. MEDICATIONS * Use this discharge instruction sheet for medication instructions. * Take your medications at the time your doctor ordered. * Do not skip a dose of your medicines. * If you miss a dose of medicine, take it as soon as possible, but DO NOT DOUBLE A DOSE. * Read your medicine information when you get home. * Know all of the side effects of your medicine. If in doubt, ask your pharmacist * Call your Primary Care doctor's office if you have any side effects. * Be sure all of your doctors know what medicine and herbs you take (including cold, flu, and herbal medicine). Take the following with you to your follow-up doctor appointments: * Weight Chart * Medication List * List of questions Do not drink excessive alcohol, beer or wine. Pending Studies at Discharge: No Stand-Alone Forms: My mEgo, Smoking Cessation Medications and DC Order Prescriptions: New cyanocobalamin (vitamin B-12) 500 mcg Tablet 1,000 mcg PO QAM 30 Days Qty: 60 RF: 2 potassium chloride 20 mEq Tablet,Er Particles/Crystals 20 meq PO DAILY 30 Days Qty: 30 RF: 0 Continued furosemide 40 mg tablet 40 mg PO BID17 RF: 0 metformin 500 mg tablet 500 mg PO QAM RF: 0 sennosides [senna] 8.6 mg Tablet 17.2 mg PO HS RF: 0 atorvastatin 20 mg tablet 20 mg PO HS RF: 0 thiamine HCl (vitamin B1) 100 mg Tablet 100 mg PO QAM RF: 0 aspirin 81 mg Tablet,Delayed Release (Dr/Ec) 81 mg PO QAM RF: 0 tamsulosin 0.4 mg capsule 0.4 mg PO QAM RF: 0 nitroglycerin [Nitrostat] 0.4 mg Tablet, Sublingual 0.4 mg sublingual UD PRN (Reason: Chest Pain) RF: 0 docusate sodium [Colace] 100 mg Capsule 100 mg PO BID PRN (Reason: Constipation) RF: 0 allopurinol 300 mg tablet 300 mg PO QAM RF: 0 finasteride 5 mg tablet 5 mg PO QAM RF: 0 metoprolol tartrate 25 mg tablet 12.5 mg PO QAM RF: 0 albuterol sulfate 2.5 mg /3 mL (0.083 %) solution for nebulization 2.5 mg inhalation Q4 PRN (Reason: Shortness Of Breath) RF: 0 melatonin 3 mg Tablet 3 mg PO HS PRN (Reason: insomnia) Qty: 30 RF: 0 paroxetine HCl 10 mg tablet 10 mg PO HS RF: 0 Discharge Orders: Discharge Order (Routine); Ordered 08/11/21 Ordered By: Noreen Francisco/Other Patient Handouts: Managing Type 2 Diabetes Admission Data Admit Date/Time: 08/01/21 10:23 Attending Provider: Noreen Mckenna Admit Provider: Pedro Frias Primary Care Provider: eKndell Posada Other Providers: Pedro Frias ; Brett Lopez ; Reid Ramires Other Interventions: Discharge Summary Assessment (RN) Last Done: 08/11/21 10:05 Coding Level of Care Code D/C DAY MANAGEMENT >30 MINS Diagnoses Acute on chronic respiratory failure with hypercapnia J96.22 Hypoxia R09.02 CHF (congestive heart failure) I50.9 Heart failure chronicity: acute on chronic Heart failure type: unspecified Abnormal CT scan, chest R93.89 Chronic lymphocytic leukemia C91.10 Delirium R41.0 DM II (diabetes mellitus, type II), controlled E11.9 Atrial fibrillation I48.91 Atrial fibrillation type: unspecified Anemia D64.9
--- NOTE | 2021-08-11 11:57 | Cardiology Progress Note ---
Date of Service August 11, 2021 Assessment & Plan (1) Acute heart failure with preserved ejection fraction: (2) Atrial fibrillation: (3) CAD (coronary artery disease): (4) Nonsustained ventricular tachycardia: Plan: 1. Pulmonary edema: His volume status has been somewhat difficult to sort out, during his admission in May it was not clear, when he came in this time I think he was in congestive heart failure with an increased weight as well as worsening shortness of breath. His weight has decreased following admission. Today he does not seem to be in a lot of heart failure and does not have edema. I suspect he is more or less euhydrated, I would probably aim to keep his weight about where it is now and see how he does as an outpatient since he seems to be comfortable and not short of breath. We will arrange follow-up in our CHF clinic. 2. Atrial fibrillation: His atrial fibrillation has been well controlled on his current regimen and I would continue it. He is not on an anticoagulant which is acceptable with his watchman in place. 3. Coronary disease: He carries a diagnosis of coronary disease although I am not sure how that was identified and how severe it is. He is asymptomatic and I would not pursue invasive evaluation. 4. Ventricular ectopy: He has frequent premature ventricular beats and brief nonsustained ventricular tachycardia. 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 I would consider changing this to metoprolol succinate daily, perhaps a 25 mg dose to start, and watch for bradycardia but I do not believe his heart rate is low enough to be of concern. I will arrange follow-up in our heart failure clinic for next week, and I will f ollow him in the office subsequently. Admission and Anticipated Discharge Date Admission Date: August 01, 2021 Subjective Patient is feeling well today and has no complaints. He is not short of breath, I believe he has been somewhat ambulatory (he tells me he is by do not know how reliable his history is). He is lying supine in bed not short of breath and not having any edema that he is aware of. Physical Exam Physical Exam: Constitutional: Alert, cooperative and in no distress. He appears comfortable laying supine in bed. HEENT: Unremarkable Neck: No jugular venous distention, carotid pulses are irregular but otherwise normal and equal bilaterally without bruits. Pulmonary: Basilar crackles and decreased breath sounds throughout bilaterally. Cardiac: Irregular rhythm with no murmur, gallop or rub. Abdomen: Soft, nontender with normal bowel sounds. Extremities: No edema. Distal pulses intact. Neurologic: No focal findings. Gait was not tested. Skin: No rash or petechiae, he does have some ecchymosis on his legs. Results & Data ([facility]) Vital Signs (Past 12 Hours) Vital Signs Temp Pulse Pulse Pulse Resp BP BP 08/11/21 10:49 60 20 08/11/21 10:05 36.7 C 60 66 16 101/57 L 105/52 L 08/11/21 08:00 71 08/11/21 07:37 36.7 C 60 16 101/57 L 08/11/21 07:17 60 18 08/11/21 03:26 36.4 C L 53 L 18 105/52 L 08/11/21 02:40 24 Pulse Ox 08/11/21 10:49 94 08/11/21 10:05 94 08/11/21 08:00 08/11/21 07:37 94 08/11/21 07:17 95 08/11/21 03:26 94 08/11/21 02:40 91 Laboratory Results Comprehensive Metabolic Panel 08/11/21 Range/Units 07:17 Sodium 137 (136-145) mmol/L Potassium 4.0 (3.5-5.1) mmol/L Chloride 104 (98-107) mmol/L Carbon Dioxide 29 (21-32) mmol/L BUN 35 H (6-23) mg/dl Creatinine 1.13 (0.6-1.4) mg/dl Glucose 121 H (70-99(Fasting)) mg/dl Calcium 7.6 L (8.5-10.1) mg/dl Intake and Output 08/10/21 08/11/21 08/11/21 22:59 06:59 14:59 Intake Total 880 / 1275 395 / 1275 Output Total 350 / 350 Balance 880 / 925 45 / 925 Intake: Oral 880 / 1275 395 / 1275 Output: Urine 350 / 350 Other: Weight 90.2 kg 90.2 kg Weight Measurement Method Built in [facility] Patient Weight 08/12/21 06:59 Weight 90.2 kg Diagnostic Findings Telemetry: Atrial fibrillation with a controlled heart rate. PVCs. PG Care Time/CCT Total # of Minutes Spent Total Time Spent with Patient: Total time spent is greater than 50% in coordination of care (as documented) at patient's floor/unit and/or counseling patient: Coding Level of Care Code 44029 Subseq Hosp Care Lvl 2 Diagnoses Acute heart failure with preserved ejection fraction I50.31 Atrial fibrillation I48.91 Atrial fibrillation type: unspecified CAD (coronary artery disease) I25.10 Coronary Disease-Associated Artery/Lesion type: unspecified vessel or lesion type [place] vs. transplanted heart: [place] heart Associated angina: without angina Nonsustained ventricular tachycardia I47.2 (1) Atrial fibrillation Atrial fibrillation type: unspecified Qualified Code(s): I48.91 - Unspecified atrial fibrillation (2) CAD (coronary artery disease) Coronary Disease-Associated Artery/Lesion type: unspecified vessel or lesion type [place] vs. transplanted heart: [place] heart Associated angina: without angina Qualified Code(s): I25.10 - Atherosclerotic heart disease of [place] coronary artery without angina pectoris
--- NOTE | 2021-09-20 08:19 | Coding Query ---
CODING QUERY FOR UNCONTROLLED DIABETES To promote full compliance with coding requirements relating to patient care, provider participation is requested in all cases of dowel inserting machine operator uncertainty. Please assist us with the question(s) below: Coding Question: The term uncontrolled Diabetes was used throughout the record. To be able to code this diagnosis properly, could you please clarify the diagnosis below: ( ) Uncontrolled Diabetes meaning hypoglycemia ( xx ) Uncontrolled Diabetes meaning hyperglycemia ( ) Other (please specify) Principal Diagnosis: "that condition established after study, to be chiefly responsible for occasioning the admission of the patient to the hospital for care." Co-Existing Principal Diagnosis: "when two or more diagnoses equally meet the criteria for principal diagnosis as determined by the circumstances of admission, diagnostic work up, and/or therapy provided, and the Alphabetic Index, Tabular List, or another coding guideline does not provide sequencing direction, any one of the diagnoses may be sequenced first." "When the physician has documented what appears to be a current diagnosis in the body of the record, but has not included the diagnosis in the final diagnostic statement, the physician should be asked whether the diagnosis should be added." (Source Coding Clinic 2 QTR90. p3-4) NOLAN
== END 2021-08-11 12:22 | disposition home health service (06) | DRG 189 ==
LOC: ED 09:11 → SUATTDRO 10:23 → 1E 10:23 → 2S 08-02 18:39